=== PATIENT | male | born 1955 | race African-American/Black ===

== ENCOUNTER 2016-09-27 16:33 | Emergency (ER) | payer SELFPAY ==
--- NOTE | 2016-09-27 17:01 | ER Document Report ---
ED Medical Screen (RME) - General Stated Complaint: CHEST PAIN Notes: 61 yo c/o elevated blood pressure. no chest pain, no shortness of breath. no headache or dizziness + swelling to left hand. denies any muscle weakness off HTN meds x 1 month. Took room mate's blood pressure medication last night. pt feels like he has cotton in his throat and right side of mouth is swollen. no tongue swelling. no difficulty talking or swallowing. no focal neuro deficits noted at triage Physical Exam - Vital signs Vitals: Temp Pulse Resp BP Pulse Ox 99.1 F 93 18 177/108 H 95 09/27/16 16:40 09/27/16 16:40 09/27/16 16:40 09/27/16 16:40 09/27/16 16:40 Course - Vital Signs Vital signs: Temp Pulse Resp BP Pulse Ox 99.1 F 93 18 177/108 H 95 09/27/16 16:40 09/27/16 16:40 09/27/16 16:40 09/27/16 16:40 09/27/16 16:40
[2016-09-27 17:19] LABS: ABSOLUTE LYMPHOCYTES (AUTO) 4.1 10^3/uL (0.5-4.7); ABSOLUTE MONOCYTES (AUTO) 0.6 10^3/uL (0.1-1.4); ABSOLUTE NEUT (AUTO) 4.3 10^3/uL (1.7-8.2); BASOPHILS % (AUTO) 0.5 % (0-2); EOSINOPHILS % (AUTO) 0.4 % (0-6); HEMATOCRIT 39.2 % (37.9-51.0); HEMOGLOBIN 13.2 g/dL (13.5-17.0); HGB HCT DIFFERENCE 0.4; LYMPHOCYTES % (AUTO) 44.7 % (13-45); MEAN CORPUSCULAR HEMOGLOBIN 31.2 pg (27.0-33.4); MEAN CORPUSCULAR HGB CONC 33.7 g/dL (32.0-36.0); MEAN CORPUSCULAR VOLUME 92 fl (80-97); MONOCYTES % (AUTO) 6.8 % (3-13); RED BLOOD COUNT 4.24 10^6/uL (4.35-5.55); SEGMENTED NEUTROPHILS % (AUTO) 47.6 % (42-78); WHITE BLOOD COUNT 9.1 10^3/uL (4.0-10.5)
[2016-09-27 17:28] LABS: APPEARANCE,URINE SLIGHTLY-CLOUDY; BILIRUBIN,URINE NEGATIVE (NEGATIVE); GLUCOSE, URINE NEGATIVE (NEGATIVE); KETONES,URINE NEGATIVE (NEGATIVE); LEUKOCYTE ESTERASE,URINE LARGE (NEGATIVE); NITRITE,URINE POSITIVE (NEGATIVE); PROTEIN,URINE 30 mg/dL (NEGATIVE)
[2016-09-27 17:36] LABS: ALANINE AMINOTRANSFERASE 31 U/L (21-72); ALBUMIN 4.5 g/dL (3.5-5.0); ALKALINE PHOSPHATASE 121 U/L (38-126); ANION GAP 13 (5-19); ASPARTATE AMINO TRANSFERASE 27 U/L (17-59); BILIRUBIN,DIRECT 0.2 mg/dL (0.0-0.4); BILIRUBIN,TOTAL 0.5 mg/dL (0.2-1.3); BLOOD UREA NITROGEN 14 mg/dL (7-20); CALCIUM 9.9 mg/dL (8.4-10.2); CARBON DIOXIDE 27 mmol/L (22-30); CHLORIDE 103 mmol/L (98-107); CREATINE KINASE 272 U/L (55-170); CREATININE RESULT 0.84 mg/dL (0.52-1.25); GLUCOSE 101 mg/dL (75-110); POTASSIUM 3.9 mmol/L (3.6-5.0); SODIUM 143.1 mmol/L (137-145); TOTAL PROTEIN 7.9 g/dL (6.3-8.2)
[2016-09-27 17:46] LABS: CREATINE KINASE MB 1.56 ng/mL (<4.55)
[2016-09-27 17:47] LABS: TROPONIN I < 0.012 ng/mL
--- NOTE | 2016-09-27 21:50 | ER Document Report ---
ED General - General Mode of Arrival: Ambulatory Information source: Patient TRAVEL OUTSIDE OF THE [place] IN LAST 30 DAYS: No - HPI Patient complains to provider of: Lip and Throat Swelling Onset: This morning Onset/Duration: Gradual, Persistent Associated symptoms: None <MYLA GALLARDO - Last Filed: 09/27/16 22:05> <RANJEET BEJARANO - Last Filed: 09/27/16 23:56> - General Chief Complaint: High Blood Pressure Stated Complaint: CHEST PAIN Notes: Patient is a 61-year-old male presenting to the emergency department chief complaint high blood pressure. Patient has been out of his blood pressure medication for one month, and states that he went to the pharmacy today to get it filled. Patient states he wasn't feeling well, and asked the pharmacist to check his blood pressure while there. Pharmacist told the patient that he should immediately report to the emergency department due to concern for possible stroke. Shortly after leaving the pharmacy, he noticed that the corner of his lip began to swell. Patient states that he also began experiencing "cotton in his throat". Patient denies any difficulty breathing. Since coming to the emergency department, his lip has become grossly swollen, but he states that there is absolutely no change to the way his throat feels. Patient normally takes hydrochlorothiazide 25 mg daily, and he took one of his friends HCTZ 50 mg last night. When patient was informed that there was a lot of bacteria found in his urine, and patient denies any pain or burning with urination. Patient also states that he was not told that he needed to pull his foreskin back and clean the tip of his penis before urinating in the Cup. (MYLA GALLARDO) - Related Data Allergies/Adverse Reactions: No Known Allergies Allergy (Verified 09/27/16 16:55) Past Medical History - General Information source: Patient, [facility] Records - Social History Smoking Status: Current Every Day Smoker Chew tobacco use (# tins/day): No Frequency of alcohol use: None Drug Abuse: None Family History: Reviewed & Not Pertinent Patient has suicidal ideation: No Patient has homicidal ideation: No - Past Medical History Cardiac Medical History: Reports: Hx Hypertension Renal/ Medical History: Denies: Hx Peritoneal Dialysis Musculoskeltal Medical History: Reports Hx Arthritis <MYLA GALLARDO - Last Filed: 09/27/16 22:05> Review of Systems - Review of Systems Constitutional: See HPI, Other - Hypertension EENT: See HPI, Throat swelling, Mouth swelling Cardiovascular: No symptoms reported Respiratory: No symptoms reported Gastrointestinal: No symptoms reported Genitourinary: No symptoms reported. denies: Burning, Dysuria Male Genitourinary: No symptoms reported Musculoskeletal: No symptoms reported Skin: No symptoms reported Hematologic/Lymphatic: No symptoms reported Neurological/Psychological: No symptoms reported -: Yes All other systems reviewed and negative <MYLA GALLARDO - Last Filed: 09/27/16 22:05> Physical Exam - General General appearance: Alert - HEENT Head: Normocephalic, Atraumatic Eyes: Normal Pupils: PERRL Mouth/Lips: Other - Upper lip grossly edematous Pharynx: Other - Edema over the back of the throat, no redness, no difficulty breathing. No: Erythema - Respiratory Respiratory status: No respiratory distress Chest status: Nontender Breath sounds: Normal Chest palpation: Normal - Cardiovascular Rhythm: Regular Heart sounds: Normal auscultation Murmur: No - Abdominal Inspection: Normal Distension: No distension Bowel sounds: Normal Tenderness: Nontender Organomegaly: No organomegaly - Back Back: Normal, Nontender - Extremities General upper extremity: Normal inspection, Nontender General lower extremity: Normal inspection, Nontender - Neurological Neuro grossly intact: Yes Cognition: Normal Tamy Coma Scale Eye Opening: Spontaneous Tamy Coma Scale Verbal: Oriented [place] Coma Scale Motor: Obeys Commands [place] Coma Scale Total: 15 Speech: Other - Throat swelling is affecting his speech - Psychological Associated symptoms: Normal affect, Normal mood - Skin Skin Temperature: Warm Skin Moisture: Dry Skin Color: Normal <MYLA GALLARDO - Last Filed: 09/27/16 22:05> Course - Laboratory Result Diagrams: 09/27/16 17:05 09/27/16 17:05 <MYLA GALLARDO - Last Filed: 09/27/16 22:05> - Laboratory Result Diagrams: 09/27/16 17:05 09/27/16 17:05 - EKG Interpretation by Vt EKG shows normal: Sinus rhythm, Intervals, QRS Complexes. abnormal: [place], ST-T Waves - Diffuse nonspecific T-wave abnormalities Rate: Normal - 87 Rhythm: NSR [place]/QRS: Left axis deviation P Waves: LAE When compared to previous EKG there are: Previous EKG unavailable - Transfer of Care Care transferred to following provider: Dr. Becerra <RANJEET BEJARANO - Last Filed: 09/27/16 23:56> - Re-evaluation Re-evalutation: 09/27/16 23:48 At this time the patient is sound asleep and snoring loudly. His room air pulse ox is 95%. I do not believe the story is related to his angioedema as he is 350 pounds with a very short and very large neck. (RANJEET BEJARANO) - Vital Signs Vital signs: Temp Pulse Resp BP Pulse Ox 99.1 F 85 16 169/98 H 97 09/27/16 16:40 09/27/16 19:22 09/27/16 23:05 09/27/16 23:05 09/27/16 23:05 - Laboratory Laboratory results interpreted by me: 09/27/16 09/27/16 09/27/16 17:05 17:05 17:05 RBC 4.24 L Hgb 13.2 L RDW 15.0 H Creatine Kinase 272 H Urine Protein 30 H Urine Blood SMALL H Urine Nitrite POSITIVE H Urine Urobilinogen 4.0 H Ur Leukocyte Esterase LARGE H 09/27/16 22:26 RBC Hgb RDW Creatine Kinase Urine Protein 30 H Urine Blood SMALL H Urine Nitrite Urine Urobilinogen 4.0 H Ur Leukocyte Esterase MODERATE H - Transfer of Care Notes: 09/27/16 23:49 The plan at this time is to allow the patient to sleep and remained monitored through the night. He should be safe for discharge home tomorrow morning if he has no additional swelling problems. (RANJEET BEJARANO) Discharge <MYLA GALLARDO - Last Filed: 09/27/16 22:05> <RANJEET BEJARANO - Last Filed: 09/27/16 23:56> - Discharge Clinical Impression: Allergy to angiotensin-converting enzyme (JACOB) inhibitors Angioedema Qualifiers: Encounter type: initial encounter Qualified Code(s): T78.3XXA - Angioneurotic edema, initial encounter Hypertension Qualifiers: Hypertension type: essential hypertension Qualified Code(s): I10 - Essential ( primary) hypertension Condition: Stable Scribe Documentation - Scribe Written by Scribe:: Myla Gallardo [id number] acting as scribe for :: Greta <MYLA GALLARDO - Last Filed: 09/27/16 22:05>
[2016-09-27] MEDS ORDERED: FAMOTIDINE INJ/PF 20 MG/2 ML SDV IV ONE (22:05)
[2016-09-27] MEDS ORDERED: DIPHENHYDRAMINE HCL 50 MG/ML VIAL IV ONE (22:05)
[2016-09-27] MEDS ORDERED: METHYLPREDNISOLONE INJ 125 MG/2 ML SDV IV ONE (22:08)
[2016-09-27 22:44] LABS: APPEARANCE,URINE CLOUDY; BILIRUBIN,URINE NEGATIVE (NEGATIVE); GLUCOSE, URINE NEGATIVE (NEGATIVE); KETONES,URINE NEGATIVE (NEGATIVE); LEUKOCYTE ESTERASE,URINE MODERATE (NEGATIVE); NITRITE,URINE NEGATIVE (NEGATIVE); PROTEIN,URINE 30 mg/dL (NEGATIVE); URINE SPECIFIC GRAVITY 1.014
[2016-09-27] MEDS ORDERED: CEFTRIAXONE 1 GM/D5W RTU 50 ML IV ONE (22:54)
--- NOTE | 2016-09-28 02:32 | ER Document Report ---
Doctor's Note Notes: 09/28/16 02:31 Asked by nurse to assess patient at the bedside. Was in the middle of an emergent patient with tachycardia shortness of breath. Went back to the room to see the patient and he had left his gown illness belongings were gone. He left with his IV in place. He is an elopement with IV in place the police are being notified to track him down to remove the IV.
--- NOTE | 2016-09-28 08:14 | EKG REPORT ---
SEVERITY:- ABNORMAL ECG - SINUS RHYTHM PROBABLE LEFT ATRIAL ABNORMALITY BORDERLINE LEFT AXIS DEVIATION NONSPECIFIC T ABNORMALITIES, DIFFUSE LEADS : Confirmed by: Sylvester Bang 28-Sep-2016 08:14:21
[2016-09-28 08:20] VITALS: BP 155/106
== END 2016-09-28 02:30 | disposition left against medical advice (07) ==
LOC: ER 16:33
DX: T78.3XXA Angioneurotic edema, initial encounter (principal); I10 Essential (primary) hypertension; Z91.14 Patient's other noncompliance with medication regimen; R94.31 Abnormal electrocardiogram [ECG] [EKG]; F17.200 Nicotine dependence, unspecified, uncomplicated; Z88.8 Allergy status to other drugs, medicaments and biological substances
CPT/HCPCS: 93005; 99281; 96375; 96365; 36415; 87086; 82553; 82550; 85025; 87088; 80053; 81001; 84484; 87186; 71020; 93010; J1200; J2930; S0028; J0696

== ENCOUNTER 2019-07-21 13:32 | Emergency (ER) | payer BC ==
[2019-07-21] MEDS ORDERED: KETOROLAC TROMETHAMINE 60 MG/2 ML SDV IM ONE (14:44)
--- NOTE | 2019-07-21 15:44 | RADIOLOGY REPORT (SQ) ---
EXAM DESCRIPTION: KNEE RIGHT 4 VIEWS COMPLETED DATE/TIME: 07/21/2019 3:19 pm REASON FOR STUDY: pain, swelling COMPARISON: None. NUMBER OF VIEWS: Four views. TECHNIQUE: AP, lateral, and both oblique radiographic images acquired of the right knee. LIMITATIONS: None. FINDINGS: MINERALIZATION: Osteopenia. BONES: No acute fracture or dislocation. JOINT: Joint effusion. 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 The quadriceps and patellar tendon silhouettes are intact SOFT TISSUES: No soft tissue swelling or radiopaque foreign body. OTHER: No other finding. IMPRESSION: Joint effusion without an associated acute osseous abnormality. The effusion could be r eactive to the moderate to severe tricompartmental osteoarthrosis. TECHNICAL DOCUMENTATION: JOB ID: [id number] [employer]- All Rights Reserved Reading location - IP/workstation name: [email or web address]
[2019-07-21] MEDS ORDERED: NORMAL SALINE 1000 ML 1,000 ML IV ONE (15:57)
[2019-07-21 16:18] LABS: ABSOLUTE BASOPHILS # (AUTO) 0.1 10^3/uL (0.0-0.2); ABSOLUTE LYMPHOCYTES (AUTO) 3.4 10^3/uL (0.5-4.7); ABSOLUTE MONOCYTES (AUTO) 2.2 10^3/uL (0.1-1.4); ABSOLUTE NEUT (AUTO) 9.2 10^3/uL (1.7-8.2); BASOPHILS % (AUTO) 0.6 % (0-2); HEMATOCRIT 40.8 % (37.9-51.0); HEMOGLOBIN 13.5 g/dL (13.5-17.0); LYMPHOCYTES % (AUTO) 22.8 % (13-45); MEAN CORPUSCULAR HEMOGLOBIN 31.6 pg (27.0-33.4); MEAN CORPUSCULAR HGB CONC 33.2 g/dL (32.0-36.0); MEAN CORPUSCULAR VOLUME 95 fl (80-97); MONOCYTES % (AUTO) 14.9 % (3-13); PLATELET COUNT 237 10^3/uL (150-450); RED BLOOD COUNT 4.29 10^6/uL (4.35-5.55); RED CELL DISTRIBUTION WIDTH 14.9 % (11.5-14.0); SEGMENTED NEUTROPHILS % (AUTO) 61.7 % (42-78); TOTAL CELLS COUNTED % (AUTO) 100 %; WHITE BLOOD COUNT 14.9 10^3/uL (4.0-10.5)
[2019-07-21 16:21] LABS: APPEARANCE,URINE SLIGHTLY-CLOUDY; BILIRUBIN,URINE SMALL (NEGATIVE); COLOR,URINE AMBER; GLUCOSE, URINE NEGATIVE (NEGATIVE); KETONES,URINE NEGATIVE (NEGATIVE); LEUKOCYTE ESTERASE,URINE MODERATE (NEGATIVE); NITRITE,URINE NEGATIVE (NEGATIVE); PROTEIN,URINE >=500 mg/dL (NEGATIVE)
--- NOTE | 2019-07-21 16:31 | ER Document Report ---
ED General - General TRAVEL OUTSIDE OF THE [place] IN LAST 30 DAYS: No - Related Data Home Medications: Hydrochlorothiazide <CAMRON NAM E - Last Filed: 07/21/19 16:25> <CORAL VELOZ - Last Filed: 07/21/19 18:18> - General Chief Complaint: Knee Pain Stated Complaint: RIGHT KNEE PAIN Time Seen by Provider: 07/21/19 14:35 Primary Care Provider: CRESCENCIO PIPER MD [Primary Care Provider] - Follow up as needed - HPI Notes: Mr. Basil Galvez is a 64-year-old male with a longstanding history of severe polyarthritis. Possibly rheumatoid but patient is a rather poor historian. He is primary care physician has apparently tried a number of medications in the past for this with little success and is recently turned him over to a pain management clinic. They have been treating him with tramadol and he says this is not working well. He does not recall ever seeing a handhole machine operator for consultation. He is unsure whether he is been diagnosed with gout in the past but says he does not clearly recall this. He comes in today primarily for increased pain swelling of his right knee with inability to bear weight. He was transported here via EMS. Patient says he has a history of hypertension. He denies any known history of renal or hepatic disease. (CAMRON NAM) - Related Data Allergies/Adverse Reactions: tramadol Adverse Reaction (Verified 07/21/19 14:00) Past Medical History - General Information source: Patient - Social History Smoking Status: Unknown if Ever Smoked Family History: Reviewed & Not Pertinent Patient has suicidal ideation: No Patient has homicidal ideation: No - Past Medical History Cardiac Medical History: Reports: Hx Hypertension Renal/ Medical History: Denies: Hx Peritoneal Dialysis Musculoskeletal Medical History: Reports Hx Arthritis <CAMRON NAM E - Last Filed: 07/21/19 16:25> Review of Systems <CAMRON NAM - Last Filed: 07/21/19 16:25> - Review of Systems Notes: Constitutional: Negative for fever. HENT: Negative for sore throat. Eyes: Negative for visual changes. Cardiovascular: Negative for chest pain. Respiratory: Negative for shortness of breath. Gastrointestinal: Negative for abdominal pain, vomiting or diarrhea. Genitourinary: Negative for dysuria. Musculoskeletal: As per HPI. Skin: Negative for rash. Neurological: Negative for headaches, weakness or numbness. 10 point ROS negative except as marked above and in HPI. (CAMRON NAM) Physical Exam <CAMRON NAM - Last Filed: 07/21/19 16:25> - Vital signs Vitals: Temp Pulse Resp BP Pulse Ox 100.0 F 105 H 20 152/96 H 95 07/21/19 13:38 07/21/19 13:38 07/21/19 13:38 07/21/19 13:38 07/21/19 13:38 - Notes Notes: GENERAL: Well-developed well-nourished appearing in moderate discomfort. He does not appear toxic. SKIN: Good turgor no rashes. HEAD: Normocephalic atraumatic. EYES: PERRLA. EOMI. Conjunctivae and sclerae clear. EARS: CANALS AND TMS CLEAR. NOSE: CLEAR. MOUTH: Moist mucosa. Good dentition. No stridor or edema. No drooling. NECK: Supple. No masses or thyromegaly. No adenopathy. Carotids 2+ without bruits. No JVD. BACK: Symmetrical without tenderness. CHEST: Respirations unlabored. Breath sounds clear and symmetrical. HEART: Regular rhythm. No murmur gallop or rub. ABDOMEN: Soft nontender without masses, organomegaly or rebound. Bowel sounds normally active. No bruits. GENITALIA: Deferred. EXTREMITIES: Patient has a moderate size right knee effusion with some associated warmth and tenderness. No calf tenderness. Cap refill less than 1.5 seconds. Dorsalis pedis and posterior tibial pulses 3+ and symmetrical. NEUROLOGICAL: GCS 15. Alert and oriented x3. Normal gait. Speech is mildly slurred. Cranial nerves II through XII intact. Sensorimotor and cerebellar normal. Normal tone. PSYCHIATRIC: Appropriate affect. (CAMRON NAM) Course - Laboratory Result Diagrams: 07/21/19 15:43 07/21/19 15:43 <CAMRON NAM - Last Filed: 07/21/19 16:25> - Laboratory Result Diagrams: 07/21/19 15:43 07/21/19 15:43 - Diagnostic Test Radiology reviewed: Image reviewed, Reports reviewed <CORAL VELOZ E - Last Filed: 07/21/19 18:18> - Re-evaluation Re-evalutation: 07/21/19 16:30 Plan is to obtain plain films of the right knee and lab studies to include CBC, comprehensive metabolic profile, serum urate, ESR and CRP. Patient has been given IM Toradol. Further disposition of this patient is turned over to Dr. Veloz at 1630 hrs. (CAMRON NAM) 07/21/19 18:10 Laboratory 07/21/19 07/21/19 07/21/19 15:43 15:43 15:43 WBC 14.9 H RBC 4.29 L Hgb 13.5 Hct 40.8 MCV 95 MCH 31.6 MCHC 33.2 RDW 14.9 H Plt Count 237 Lymph % (Auto) 22.8 [place]ade % (Auto) 14.9 H Eos % (Auto) 0.0 Baso % (Auto) 0.6 Absolute Neuts (auto) 9.2 H Absolute Lymphs (auto) 3.4 Absolute Monos (auto) 2.2 H Absolute Eos (auto) 0.0 Absolute Basos (auto) 0.1 Seg Neutrophils % 61.7 ESR 97 H Sodium 139.7 Potassium 4.3 Chloride 100 Carbon Dioxide 27 Anion Gap 13 BUN 20 Creatinine 1.13 Est GFR ( Amer) > 60 Est GFR (MDRD) Non-Af > 60 Glucose 129 H Uric Acid 10.9 H Calcium 9.9 Total Bilirubin 2.6 H Direct Bilirubin 1.2 H Neonat Total Bilirubin Not Reportable Neonat Direct Bilirubin Not Reportable Neonat Indirect Bili Not Reportable AST 47 ALT 33 Alkaline Phosphatase 145 H C-Reactive Protein 86.9 H Total Protein 9.0 H Albumin 4.7 Urine Color OSIRIS Urine Appearance SLIGHTLY-CLOUDY Urine pH 5.0 Ur Specific [place] 1.020 Urine Protein >=500 H Urine Glucose (UA) NEGATIVE Urine Ketones NEGATIVE Urine Blood MODERATE H Urine Nitrite NEGATIVE Urine Bilirubin SMALL H Urine Urobilinogen 4.0 H Ur Leukocyte Esterase MODERATE H Urine WBC (Auto) 44 Urine RBC (Auto) 7 U Hyaline Cast (Auto) 2 Urine Bacteria (Auto) 3+ Squamous Epi Cells Auto 1 Urine Mucus (Auto) FEW Urine Ascorbic Acid NEGATIVE Knee X-Ray 07/21/19 14:44 IMPRESSION: Joint effusion without an associated acute osseous abnormality. The effusion could be reactive to the moderate to severe tricompartmental osteoarthrosis. 07/21/19 18:13 64-year-old male with chronic pain, arthritis presents with complaint of right knee pain. Patient has been undergoing pain management for chronic knee pain. Upon my exam patient had already been medicated and reports improvement of his knee pain. Urinalysis consistent with urinary tract infection. Patient has full range of motion of his knee on my exam without associated warmth or erythema, making septic joint less likely. He does have a mild effusion and an Kristofer wrap was applied. Patient requesting discharge home. 07/21/19 18:17 Patient was evaluated and treated as appropriate for the patient's presenting symptoms and complaint, with consideration of any critical or life threatening conditions that may be associated with their obtained history and exam as noted above. All results were discussed with patient and... Patient provided the opportunity to ask questions, and express concerns. Patient was educated on treatments based on their presumed diagnosis as noted above. At this time we will discharge the patient with return precautions and follow-up recommendations. Verbal discharge instructions given a the bedside. Medication warnings reviewed. Patient is in agreement with this plan and has verbalized understanding of return precautions. After careful consideration I feel that that patient can be safely discharged from the emergency department, they were advised to followup with a primary care physician in 2-3 days. Dictation on this chart was performed using voice recognition software and may result in unintended grammatical, spelling, syntax or errors. (CORAL VELOZ) - Vital Signs Vital signs: Temp Pulse Resp BP Pulse Ox 100.0 F 105 H 20 152/96 H 95 07/21/19 13:38 07/21/19 13:38 07/21/19 13:38 07/21/19 13:38 07/21/19 13:38 - Laboratory Laboratory results interpreted by me: 07/21/19 07/21/19 07/21/19 15:43 15:43 15:43 WBC 14.9 H RBC 4.29 L RDW 14.9 H [place] % (Auto) 14.9 H Absolute Neuts (auto) 9.2 H Absolute Monos (auto) 2.2 H ESR 97 H Glucose 129 H Uric Acid 10.9 H Total Bilirubin 2.6 H Direct Bilirubin 1.2 H Alkaline Phosphatase 145 H C-Reactive Protein 86.9 H Total Protein 9.0 H Urine Protein >=500 H Urine Blood MODERATE H Urine Bilirubin SMALL H Urine Urobilinogen 4.0 H Ur Leukocyte Esterase MODERATE H Discharge <CAMRON NAM E - Last Filed: 07/21/19 16:25> <CORAL VELOZ E - Last Filed: 07/21/19 18:18> - Discharge Clinical Impression: Chronic knee pain Qualifiers: Laterality: right Qualified Code(s): M25.561 - Pain in right knee; G89.29 - Other chronic pain UTI (urinary tract infection) Qualifiers: Urinary tract infection type: site unspecified Hematuria presence: without hematuria Qualified Code(s): N39.0 - Urinary tract infection, site not specified Osteoarthritis Qualifiers: Osteoarthritis location: multiple joints Osteoarthritis type: unspecified Qualified Code(s): M15.9 - Polyosteoarthritis, unspecified Condition: Good Disposition: HOME, SELF-CARE Instructions: Ice & Elevation ([facility]), Osteoarthritis ([facility]), Gout ([facility]), Urinary Tract Infection ([facility]) Additional Instructions: Your urine shows findings consistent with a urinary tract infection. Please take all the antibiotics as directed even if your symptoms have improved. Please follow-up with your primary care physician as needed. Return to emergency room if you develop fever >101F, persistent vomiting, become lethargic, have severe pain in your sides, or any other symptoms that are concerning to you. Follow up with your [id number] hours for further care or return to the ED IMMEDIATELY if symptoms worsen or you have any concerns. If you cannot afford to follow up with your primary care physician a list of low cost clinics have been provided at the end of your discharge papers as well. Most prescribed medications have multiple side effects. The safest thing to do is when filling your prescription speak to your pharmacist regarding possible interactions with your normal home medications and over the counter medications such as Ibuprofen, Tylenol, Benadryl. If you experience any symptoms that cause you discomfort or concern you should discontinue the medication immediately and return to the emergency room or call your primary care physician. Prescriptions: Prednisone [Deltasone 20 mg Tablet] 3 tab PO DAILY 5 Days #15 tablet Cephalexin Monohydrate [Keflex 500 mg Capsule] 500 mg PO BID 10 Days #20 capsule Meloxicam [Mobic] 7.5 mg PO DAILY #10 tablet Forms: Elevated Blood Pressure Referrals: FELIZ,CRESCENCIO, MD [Primary Care Provider] - Follow up as needed
[2019-07-21 16:48] LABS: ALBUMIN 4.7 g/dL (3.5-5.0); ALKALINE PHOSPHATASE 145 U/L (38-126); ANION GAP 13 (5-19); ASPARTATE AMINO TRANSFERASE 47 U/L (17-59); BILIRUBIN,DIRECT 1.2 mg/dL (0.0-0.4); BILIRUBIN,TOTAL 2.6 mg/dL (0.2-1.3); BLOOD UREA NITROGEN 20 mg/dL (7-20); C-REACTIVE PROTEIN 86.9 mg/L (<10.0); CALCIUM 9.9 mg/dL (8.4-10.2); CARBON DIOXIDE 27 mmol/L (22-30); CHLORIDE 100 mmol/L (98-107); GLUCOSE 129 mg/dL (75-110); POTASSIUM 4.3 mmol/L (3.6-5.0); URIC ACID 10.9 mg/dL (3.5-8.5)
[2019-07-21 16:58] LABS: ERYTHROCYTE SEDIMENTATION RATE 97 mm/hr (0-20)
[2019-07-21] MEDS ORDERED: FENTANYL CITRATE INJ/PF 100 MCG/2 ML AMPUL IV ONE (17:06)
[2019-07-21 19:01] VITALS: BP 121/77
== END 2019-07-21 19:00 | disposition home or self-care (01) ==
LOC: ER 13:32
DX: G89.29 Other chronic pain (principal); M25.561 Pain in right knee; N39.0 Urinary tract infection, site not specified; M15.9 Polyosteoarthritis, unspecified; M25.461 Effusion, right knee; I10 Essential (primary) hypertension
CPT/HCPCS: 99284; 36415; 87086; 84550; 85025; 85652; 86140; 87088; 80053; 81001; 87186; 73564; J1885; J3010; J7030

== ENCOUNTER 2019-07-25 16:23 | Emergency (ER) | payer BC ==
[2019-07-25] MEDS ORDERED: NORMAL SALINE 1000 ML 1,000 ML IV ONE (22:10)
--- NOTE | 2019-07-25 22:12 | ER Document Report ---
ED General - General Chief Complaint: Knee Pain Stated Complaint: RIGHT KNEE,LEFT FOOT PAIN Time Seen by Provider: 07/25/19 21:51 Primary Care Provider: CRESCENCIO PIPER MD [Primary Care Provider] - Follow up as needed Notes: Patient is a 64-year-old male that comes emergency department for chief complaint of inability to walk. He was seen almost 4 days ago for pain in his right knee and left ankle, he states that he was diagnosed with gout and osteoarthritis, prescribed medications, he states that it took him 1.5 hours to get back into his house and then when he got into his room he has been sitting on the floor for 3 days. He states that he was using the bathroom on the floor. He states that he tried to take the legs off his bed and get into the bed but he could not. He states he tried to use crutches but cannot ambulate. Patient states she is depressed about losing his independence, he states normally he is ambulatory and works a full-time job. He denies SI or HI however. He denies any pain unless he tries to walk, he denies vomiting, fever, and he is still urinating but his urine is reportedly dark. He states he has a history of hypertension and arthritis but he denies medical history otherwise. TRAVEL OUTSIDE OF THE [place] IN LAST 30 DAYS: No - Related Data Allergies/Adverse Reactions: tramadol Adverse Reaction (Verified 07/21/19 14:00) Past Medical History - General Information source: Patient - Social History Smoking Status: Never Smoker Frequency of alcohol use: None Drug Abuse: None Lives with: Family Family History: Reviewed & Not Pertinent Patient has suicidal ideation: No Patient has homicidal ideation: No - Past Medical History Cardiac Medical History: Reports: Hx Hypertension Renal/ Medical History: Denies: Hx Peritoneal Dialysis Musculoskeletal Medical History: Reports Hx Arthritis - Immunizations Immunizations up to date: Yes Hx Diphtheria, Pertussis, Tetanus Vaccination: Yes Review of Systems - Review of Systems Constitutional: See HPI EENT: No symptoms reported Cardiovascular: No symptoms reported Respiratory: No symptoms reported Gastrointestinal: No symptoms reported Genitourinary: No symptoms reported Male Genitourinary: No symptoms reported Musculoskeletal: See HPI Skin: No symptoms reported Hematologic/Lymphatic: No symptoms reported Neurological/Psychological: No symptoms reported Physical Exam - Vital signs Vitals: Temp Pulse Resp BP Pulse Ox 99.3 F 96 16 174/92 H 94 07/25/19 17:06 07/25/19 17:06 07/25/19 17:06 07/25/19 17:06 07/25/19 17:06 - Notes Notes: GENERAL: Alert, interacts well. No acute distress. HEAD: Normocephalic, atraumatic. EYES: Pupils equal, round, and reactive to light. Extraocular movements intact. ENT: Oral mucosa moist, tongue midline. Oropharynx unremarkable. Airway patent. LUNGS: Clear to auscultation bilaterally, no wheezes, rales, or rhonchi. No respiratory distress. HEART: Regular rate and rhythm. No murmur ABDOMEN: Soft, non-tender. Non-distended. Bowel sounds present in all 4 q uadrants. GENITOURINARY: Deferred EXTREMITIES: There is mild warmth and tenderness with palpation over both knees but the right knee has more soft tissue swelling. Range of motion intact, no erythema noted, normal lower extremities otherwise, normal distal neurovascular exam. BACK: no cervical, thoracic, lumbar midline tenderness. No saddle anesthesia, normal distal neurovascular exam. Moves all extremities in full range of motion. NEUROLOGICAL: Alert and oriented x3. Normal speech. Cranial nerves II through XII grossly intact. PSYCH: Normal affect, normal mood. SKIN: Warm, dry, normal turgor. No rashes or lesions noted. Course - Re-evaluation Re-evalutation: Patient has pain over the right knee and pain over the left ankle. He has already had these imaged. He denies reinjury. He states that he was seen the last 2 times and is still not able to walk at home and just sits on his floor in his room. CBC shows some leukocytosis, nonspecific, joints are not erythematous, he can bend all the joints without difficulty, these do not appear infected. No fever. Chemistry shows elevated BUN, borderline AST, CK 800, uri nalysis shows elevated specific gravity. Patient was given 2 bags of IV fluids. He is able to urinate without difficulty and urine is not tea colored. Patient is able to drink fluids without any difficulty. I am having a lot of difficulty getting patient to walk. He is very large in size, we are having trouble getting him off the bed, he will not support any weight on his leg. Patient is stating that he would like to ice these, if he received medication he will try. He was given Solu-Medrol and pain medication. Patient still unable to walk, now we will try ankle stirrup on the left ankle and knee immobilizer on the right knee after discussion with patient. Patient does state that for years he has been told by orthopedic surgery that he will need knee replacements but he has been putting this off. He also was told that he could get surgery on his left ankle but he put this off as well. He has received injections in his knees with some relief. He states that he basically has "handicapped" his own house with walkers, canes, crutches everywhere along with devices to hold onto in many locations. This is not a new problem. He states he is hoping that he can get to where he can ambulate today and go home, he states he does not want to be admitted and he does not want to be placed anywhere. Patient still not able to get up with assistance with the ankle stirrup and the knee immobilizer. Labs repeated and CK is downtrending nicely. No significant change in his labs from prior. Discussed options, caseworker protective services consult was placed to see if we can get patient more assistance at home. - Vital Signs Vital signs: Temp Pulse Resp BP Pulse Ox 99.3 F 96 16 174/92 H 94 07/25/19 17:06 07/25/19 17:06 07/25/19 17:06 07/25/19 17:06 07/25/19 17:06 - Laboratory Result Diagrams: 07/25/19 22:43 07/26/19 05:58 Laboratory results interpreted by me: 07/25/19 07/25/19 07/25/19 22:32 22:43 22:43 WBC 14.2 H RBC 3.80 L Hgb 11.8 L Hct 35.9 L RDW 14.8 H Absolute Neuts (auto) 8.4 H Absolute Monos (auto) 1.8 H BUN 29 H Glucose 142 H Total Bilirubin 1.6 H Direct Bilirubin 0.9 H AST 78 H Alkaline Phosphatase 144 H Creatine Kinase 839 H Urine Protein 30 H Urine Blood SMALL H Urine Urobilinogen 4.0 H 07/26/19 05:58 WBC RBC Hgb Hct RDW Absolute Neuts (auto) Absolute Monos (auto) BUN 29 H Glucose 207 H Total Bilirubin 2.3 H Direct Bilirubin 1.4 H AST 81 H Alkaline Phosphatase 156 H Creatine Kinase 597 H Urine Protein Urine Blood Urine Urobilinogen Procedures - Immobilization left ankle Pre-Proc Neuro Vasc Exam: Normal Immobilizer type: Kristofer wrap, Ankle stirrup Post-Proc Neuro Vasc Exam: Normal Alignment checked and good: Yes right knee Pre-Proc Neuro Vasc Exam: Normal Immobilizer type: Knee immobilizer Performed by: PCT Post-Proc Neuro Vasc Exam: Normal Alignment checked and good: Yes Discharge - Discharge Clinical Impression: Swelling of right knee joint, Chronic pain of left ankle, Impaired ambulation Condition: Stable Disposition: HOME, SELF-CARE Referrals: CRESCENCIO PIPER MD [Primary Care Provider] - Follow up in 3-5 days
[2019-07-25 22:46] LABS: APPEARANCE,URINE CLEAR; BILIRUBIN,URINE NEGATIVE (NEGATIVE); COLOR,URINE AMBER; GLUCOSE, URINE NEGATIVE (NEGATIVE); KETONES,URINE NEGATIVE (NEGATIVE); LEUKOCYTE ESTERASE,URINE NEGATIVE (NEGATIVE); NITRITE,URINE NEGATIVE (NEGATIVE); PROTEIN,URINE 30 mg/dL (NEGATIVE)
[2019-07-25 22:54] LABS: ABSOLUTE BASOPHILS # (AUTO) 0.1 10^3/uL (0.0-0.2); ABSOLUTE LYMPHOCYTES (AUTO) 3.8 10^3/uL (0.5-4.7); ABSOLUTE MONOCYTES (AUTO) 1.8 10^3/uL (0.1-1.4); ABSOLUTE NEUT (AUTO) 8.4 10^3/uL (1.7-8.2); HEMATOCRIT 35.9 % (37.9-51.0); HEMOGLOBIN 11.8 g/dL (13.5-17.0); MEAN CORPUSCULAR HEMOGLOBIN 31.1 pg (27.0-33.4); MEAN CORPUSCULAR VOLUME 94 fl (80-97); MONOCYTES % (AUTO) 12.9 % (3-13); PLATELET COUNT 289 10^3/uL (150-450); RED CELL DISTRIBUTION WIDTH 14.8 % (11.5-14.0); SEGMENTED NEUTROPHILS % (AUTO) 59.1 % (42-78); TOTAL CELLS COUNTED % (AUTO) 100 %; WHITE BLOOD COUNT 14.2 10^3/uL (4.0-10.5)
[2019-07-25 23:13] LABS: ALBUMIN 3.8 g/dL (3.5-5.0); ALKALINE PHOSPHATASE 144 U/L (38-126); ANION GAP 11 (5-19); ASPARTATE AMINO TRANSFERASE 78 U/L (17-59); BILIRUBIN,DIRECT 0.9 mg/dL (0.0-0.4); BILIRUBIN,TOTAL 1.6 mg/dL (0.2-1.3); BLOOD UREA NITROGEN 29 mg/dL (7-20); CALCIUM 9.5 mg/dL (8.4-10.2); CARBON DIOXIDE 29 mmol/L (22-30); CHLORIDE 100 mmol/L (98-107); CREATINE KINASE 839 U/L (55-170); GLUCOSE 142 mg/dL (75-110); POTASSIUM 3.8 mmol/L (3.6-5.0); TOTAL PROTEIN 7.8 g/dL (6.3-8.2)
[2019-07-26] MEDS ORDERED: NORMAL SALINE 1000 ML 1,000 ML IV ONE (00:26)
[2019-07-26] MEDS ORDERED: MORPHINE SULFATE 10 MG/ML INJ IV ONE (01:01)
[2019-07-26] MEDS ORDERED: METHYLPREDNISOLONE INJ 125 MG/2 ML SDV IV ONE (01:01)
[2019-07-26] MEDS ORDERED: ONDANSETRON HCL INJ/PF 4 MG/2 ML SDV IV ONE (01:02)
[2019-07-26 06:26] LABS: ALBUMIN 3.9 g/dL (3.5-5.0); ALKALINE PHOSPHATASE 156 U/L (38-126); ANION GAP 12 (5-19); ASPARTATE AMINO TRANSFERASE 81 U/L (17-59); BILIRUBIN,DIRECT 1.4 mg/dL (0.0-0.4); BILIRUBIN,TOTAL 2.3 mg/dL (0.2-1.3); BLOOD UREA NITROGEN 29 mg/dL (7-20); CALCIUM 9.6 mg/dL (8.4-10.2); CARBON DIOXIDE 27 mmol/L (22-30); CHLORIDE 99 mmol/L (98-107); CREATINE KINASE 597 U/L (55-170); GLUCOSE 207 mg/dL (75-110); POTASSIUM 4.5 mmol/L (3.6-5.0); TOTAL PROTEIN 7.9 g/dL (6.3-8.2)
--- NOTE | 2019-07-26 10:33 | EKG REPORT ---
SEVERITY:- ABNORMAL ECG - SINUS TACHYCARDIA LEFT ATRIAL ABNORMALITY BORDERLINE T ABNORMALITIES, INFERIOR LEADS : Confirmed by: Reji Aguilera MD 26-Jul-2019 10:32:47
[2019-07-26 12:26] VITALS: BP 136/87
== END 2019-07-26 12:27 | disposition home or self-care (01) ==
LOC: ER 16:23
DX: M79.89 Other specified soft tissue disorders (principal); M25.561 Pain in right knee; M79.672 Pain in left foot; G89.29 Other chronic pain; R26.9 Unspecified abnormalities of gait and mobility; I10 Essential (primary) hypertension
CPT/HCPCS: 93005; 99284; 96361; 96374; 96375; 36415; 82550; 85025; 80053; 81001; 93010; L1830; L1902; J2930; J2270; J2405; J7030 ×2

== ENCOUNTER 2019-07-29 17:27 | Inpatient (IN) | payer BC ==
[2019-07-29] MEDS ORDERED: RINGERS SOLUTION,LACTATED 1,000 ML IV ONE (18:04)
[2019-07-29] MEDS ORDERED: HYDROMORPHONE HCL INJ/PF 2 MG/ML AMPULE IV ONE (18:04)
--- NOTE | 2019-07-29 18:05 | ER Document Report ---
ED General - General Stated Complaint: IMMOBILITY Notes: 64-year-old male with gout and obesity presents with worsening right knee pain left elbow and ankle pain, and immobility. Is been seen several times for joint pain takes meloxicam and is at the point now where he is living at home and c annot get out of bed or function with any of his ADLs. He denies fever. His current joint pain flare is been going on for a few weeks but is been seen twice in the ED, says that every time he gets home everything gets worse. TRAVEL OUTSIDE OF THE [place] IN LAST 30 DAYS: No - Related Data Allergies/Adverse Reactions: tramadol Adverse Reaction (Verified 07/21/19 14:00) Past Medical History - Social History Smoking Status: Never Smoker Family History: Reviewed & Not Pertinent - Past Medical History Cardiac Medical History: Reports: Hx Hypertension Renal/ Medical History: Denies: Hx Peritoneal Dialysis Musculoskeletal Medical History: Reports Hx Arthritis - Immunizations Immunizations up to date: Yes Hx Diphtheria, Pertussis, Tetanus Vaccination: Yes Review of Systems - Review of Systems Notes: REVIEW OF SYSTEMS GEN: Denies fever, chills, weight loss ENT: Denies sore throat, nasal discharge, ear pain EYES: Denies blurry vision, eye pain, discharge CV: Denies chest pain, palpitations, edema RESP: Denies cough, shortness of breath, wheezing GI: Denies abdominal pain, nausea, vomiting, diarrhea MSK: Joint pain SKIN: Denies rash, skin lesions LYMPH: Denies swollen glands/lymph nodes NEURO: Denies headache, focal weakness or numbness, dizziness PSYCH: Denies depression, suicidal or homicidal ideation PHYSICAL EXAMINATION General: No acute distress, well-nourished Head: Atraumatic, normocephalic ENT: Mouth normal, oropharynx moist, no exudates or tonsillar enlargement Eyes: Conjunctiva normal, pupils equal, lids normal Neck: No JVD, supple, no guarding CVS: Normal rate, regular rhythm, no murmurs Resp: No resp distress, equal and normal breath sounds bilaterally GI: Nondistended, soft, no tenderness to palpation, no rebound or guarding Ext: Warm effusion of the right knee and left elbow with limited range of motion, left wrist tenderness and warmth as well Chronic appearing left ankle edema with pain on range of motion Back: No CVA or midline TTP Skin: No rash, warm Lymphatic: No lymphadeopathy noted Neuro: Awake, alert. Face symmetric. GCS 15. Course - Re-evaluation Re-evalutation: 07/29/19 20:51 Patient presents with polyarthritis with multiple hot swollen joints, debility and obesity. He has no injection drug use or sexually transmitted disease history however infection is a possibility. Got labs: Grossly elevated CRP mild elevated white count. Added blood cultures, tapped right knee and sent for lab studies. Given pain medicine. Discussed with Dr. Bay from hospitalist servicehe will order antibiotics and admit the patient. - Laboratory Result Diagrams: 07/29/19 18:36 07/29/19 18:36 Laboratory results interpreted by me: 07/29/19 07/29/19 18:36 18:36 WBC 17.3 H RBC 3.89 L Hgb 12.4 L Hct 36.2 L RDW 14.9 H Frontier % (Auto) 14.8 H Absolute Neuts (auto) 10.3 H Absolute Monos (auto) 2.6 H ESR 92 H Chloride 96 L BUN 28 H Glucose 168 H C-Reactive Protein 254.7 H Procedures - Joint Aspiration Right Knee Time completed: 20:50 Consent obtained: Yes Joint aspiration pre-procedure: Betadine prep applied, Sterile drapes applied Anesthetic type: 1% Lidocaine w/epi Needle size: 18 Amount/type of drainage: 10 mL dark green cloudy Number of attempts: 1 Complications: No Notes: Sent to lab for relevant studies Discharge - Discharge Clinical Impression: Polyarthritis Arthralgia Qualifiers: Joint pain location: elbow Laterality: left Qualified Code(s): M25.522 - Pain in left elbow Condition: Good Disposition: ADMITTED INPATIENT Admitting Provider: Phu (Hospitalist) Unit Admitted: Medical Floor
[2019-07-29 18:53] LABS: ABSOLUTE BASOPHILS # (AUTO) 0.2 10^3/uL (0.0-0.2); ABSOLUTE LYMPHOCYTES (AUTO) 4.3 10^3/uL (0.5-4.7); ABSOLUTE MONOCYTES (AUTO) 2.6 10^3/uL (0.1-1.4); ABSOLUTE NEUT (AUTO) 10.3 10^3/uL (1.7-8.2); BASOPHILS % (AUTO) 1.2 % (0-2); HEMATOCRIT 36.2 % (37.9-51.0); HEMOGLOBIN 12.4 g/dL (13.5-17.0); LYMPHOCYTES % (AUTO) 24.6 % (13-45); MEAN CORPUSCULAR HEMOGLOBIN 31.9 pg (27.0-33.4); MEAN CORPUSCULAR HGB CONC 34.3 g/dL (32.0-36.0); MEAN CORPUSCULAR VOLUME 93 fl (80-97); MONOCYTES % (AUTO) 14.8 % (3-13); PLATELET COUNT 410 10^3/uL (150-450); RED BLOOD COUNT 3.89 10^6/uL (4.35-5.55); RED CELL DISTRIBUTION WIDTH 14.9 % (11.5-14.0); SEGMENTED NEUTROPHILS % (AUTO) 59.4 % (42-78); TOTAL CELLS COUNTED % (AUTO) 100 %; WHITE BLOOD COUNT 17.3 10^3/uL (4.0-10.5)
[2019-07-29 19:16] LABS: ANION GAP 14 (5-19); BLOOD UREA NITROGEN 28 mg/dL (7-20); CALCIUM 9.8 mg/dL (8.4-10.2); CARBON DIOXIDE 27 mmol/L (22-30); CHLORIDE 96 mmol/L (98-107); GLUCOSE 168 mg/dL (75-110); POTASSIUM 4.1 mmol/L (3.6-5.0)
[2019-07-29 19:30] LABS: C-REACTIVE PROTEIN 254.7 mg/L (<10.0)
[2019-07-29 19:33] LABS: ERYTHROCYTE SEDIMENTATION RATE 92 mm/hr (0-20)
[2019-07-29] MEDS ORDERED: LIDOCAINE 1.5%/EPINEPHRINE INJ-PF 30 ML SDV INJ ONE (20:10)
[2019-07-29] MEDS ORDERED: LIDOCAINE 1%/EPINEPHRINE INJ 20 ML VIAL INJ ONE (20:15)
[2019-07-29] MEDS ORDERED: MAG HYDROX/AL HYDROX/SIMETH SUSP 30 ML UDCUP PO PRN (20:20)
[2019-07-29] MEDS ORDERED: IPRATROPIUM/ALBUTEROL 0.5-2.5 MG/3 ML AMPUL NEB PRN (20:20)
[2019-07-29] MEDS ORDERED: ACETAMINOPHEN 325 MG TABLET PO PRN (20:20)
[2019-07-29] MEDS ORDERED: MAGNESIUM HYDROXIDE SUSP 30 ML UDCUP PO PRN (20:20)
[2019-07-29] MEDS ORDERED: VANCOMYCIN HCL 0 MG in DEXTROSE 5%-WATER 250 ML IV NR (20:30)
[2019-07-29] MEDS ORDERED: FENTANYL CITRATE INJ/PF 100 MCG/2 ML AMPUL IV ONE (20:35)
[2019-07-29 21:56] LABS: FLUID APPEARANCE SLIGHTLY HAZY; FLUID COLOR YELLOW; FLUID SOURCE KNEE; FLUID TYPE SYNOVIAL; FLUID VISCOSITY MODERATELY VISCOUS
[2019-07-29] MEDS: KETOROLAC TROMETHAMINE INJ/PF 30 MG/1 ML SDV IV PRN (22:11)
[2019-07-29] MEDS: VANCOMYCIN HCL 1,250 MG in DEXTROSE 5%-WATER 250 ML IV SCH (22:17)
[2019-07-29] MEDS: HEPARIN SOD (PORCINE) 5,000 UNIT/ML 1 ML VIAL SUBCUT SCH (22:19)
[2019-07-29 22:42] LABS: CALCIUM PYROPHOSPHATE CRYSTALS NONE OBSERVED; MONOSODIUM URATE CRYSTALS INTRACELLULAR; OTHER CRYSTALS NONE OBSERVED
--- NOTE | 2019-07-30 02:43 | PDOC H&P ---
History of Present Illness Admission Date/PCP: 07/29/19 20:19 CRESCENCIO PIPER MD Patient complains of: Joint pain History of Present Illness: TEVIN GONZALEZ is a 64 year old male with a past medical history of hypertension, morbid obesity and 2 years of severe polyarthritis. Patient was recently referred to pain management initiating Ultram without significant improvement he seen in the emergency room unable to bear weight with worsening of his chronic right elbow, right knee and left ankle pain. Obvious effusion is present and an arthrogram centesis is performed by the emergency room provider which is notable for greater than 4000 white blood cells and red blood cells. Patient denies history of IV drug use or unprotected sex, Gout, or a high purine diet. He started on vancomycin, Rocephin and referred to the hospitalist for admission. Past Medical History Cardiac Medical History: Reports: Hypertension Musculoskeltal Medical History: Reports: Arthritis Past Surgical History Past Surgical History: Reports: None Social History Information Source: Patient, [facility] Records Smoking Status: Never Smoker Electronic Cigarette use?: No Frequency of Alcohol Use: None Drugs: None - Advance Directive Resuscitation Status: Full Code Family History Family History: Arthritis - Sister has similar symptoms Parental Family History Reviewed: Yes Children Family History Reviewed: Yes Sibling(s) Family History Reviewed.: Yes Medication/Allergy Allergies/Adverse Reactions: tramadol Adverse Reaction (Verified 07/21/19 14:00) Review of Systems Constitutional: PRESENT: as per HPI. ABSENT: chills, fatigue, fever(s), headache(s), night sweats, weight gain, weight loss Eyes: ABSENT: visual disturbances Ears: ABSENT: hearing changes Cardiovascular: ABSENT: chest pain, dyspnea on exertion, edema, orthropnea, palpitations Respiratory: ABSENT: cough, hemoptysis Gastrointestinal: ABSENT: abdominal pain, constipation, diarrhea, hematemesis, hematochezia, nausea, vomiting Genitourinary: ABSENT: dysuria, hematuria Musculoskeletal: PRESENT: as per HPI. ABSENT: joint swelling Integumentary: ABSENT: rash, wounds Neurological: ABSENT: abnormal gait, abnormal speech, confusion, dizziness, focal weakness, syncope Psychiatric: ABSENT: anxiety, depression, homidical ideation, suicidal ideation Endocrine: ABSENT: cold intolerance, heat intolerance, polydipsia, polyuria Hematologic/Lymphatic: ABSENT: easy bleeding, easy bruising Physical Exam Vital Signs: Temp Pulse Resp BP Pulse Ox 97.8 F 94 17 154/96 H 94 07/30/19 01:40 07/30/19 01:40 07/30/19 01:40 07/30/19 01:40 07/30/19 01:40 Intake & Output 07/28/19 07/29/19 07/30/19 11:59 11:59 11:59 Intake Total 1250 Balance 1250 Weight 157.397 kg General appearance: PRESENT: cooperative, severe distress, well-developed, well- nourished Head exam: PRESENT: atraumatic, normocephalic Eye exam: PRESENT: conjunctiva pink, EOMI, PERRLA. ABSENT: scleral icterus Ear exam: PRESENT: normal external ear exam Mouth exam: PRESENT: moist, tongue midline Neck exam: ABSENT: carotid bruit, JVD, lymphadenopathy, thyromegaly Respiratory exam: PRESENT: clear to auscultation thomas. ABSENT: rales, rhonchi, wheezes Cardiovascular exam: PRESENT: RRR. ABSENT: diastolic murmur, rubs, systolic murmur Pulses: PRESENT: normal dorsalis pedis pul Vascular exam: PRESENT: normal capillary refill GI/Abdominal exam: PRESENT: normal bowel sounds, soft. ABSENT: distended, guarding, mass, organolmegaly, rebound, tenderness Rectal exam: PRESENT: deferred Extremities exam: PRESENT: joint swelling, tenderness, +1 edema. ABSENT: calf tenderness, clubbing, full ROM - Limited by pain, pedal edema Musculoskeletal exam: PRESENT: tenderness. ABSENT: full ROM - Limited by pain Neurological exam: PRESENT: alert, awake, oriented to person, oriented to place, oriented to time, oriented to situation, CN II-XII grossly intact. ABSENT: motor sensory deficit Psychiatric exam: PRESENT: appropriate affect, normal mood. ABSENT: homicidal ideation, suicidal ideation Skin exam: PRESENT: dry, intact, warm. ABSENT: cyanosis, rash Results Laboratory Results: 07/29/19 18:36 07/29/19 18:36 07/29/19 07/29/19 07/29/19 18:36 18:36 20:49 WBC 17.3 H RBC 3.89 L Hgb 12.4 L Hct 36.2 L MCV 93 MCH 31.9 MCHC 34.3 RDW 14.9 H Plt Count 410 Seg Neutrophils % 59.4 Sodium 137.3 Potassium 4.1 Chloride 96 L Carbon Dioxide 27 Anion Gap 14 BUN 28 H Creatinine 0.78 Est GFR ( Amer) > 60 Glucose 168 H Uric Acid Calcium 9.8 C-Reactive Protein 254.7 H Fluid Type SYNOVIAL Fluid Source KNEE Fluid Color YELLOW Fluid Appearance SLIGHTLY HAZY Fluid Viscosity MODERATELY VISCOUS Fluid WBC 4250 Fluid RBC 4788 07/29/19 07/29/19 20:49 20:54 WBC RBC Hgb Hct MCV MCH MCHC RDW Plt Count Seg Neutrophils % Sodium Potassium Chloride Carbon Dioxide Anion Gap BUN Creatinine Est GFR ( Amer) Glucose Uric Acid 8.0 Calcium C-Reactive Protein Fluid Type SYNOVIAL Fluid Source Fluid Color Fluid Appearance Fluid Viscosity Fluid WBC Fluid RBC 07/29/19 20:54 Creatine Kinase 133 Assessment and Plan - Diagnosis (1) Septic arthritis Is this a current diagnosis for this admission?: Yes Plan: Abrupt worsening of her chronic arthritis affecting the right elbow, right knee and left ankle, likely underlying inflammatory arthritis with possible new septic component. Symptomatic management, empiric antibiotics, follow-up synovial fluid analysis and culture. Consider orthopedic consult (2) Intractable pain Is this a current diagnosis for this admission?: Yes Plan: Secondary to #1, IV Toradol, narcotics as needed breakthrough - Time Time Spent with patient: 25-34 minutes - Inpatient Certification Medical Necessity: Need Close Monitoring Due to Risk of Patient Decompensation
[2019-07-30 03:42] LABS: URINE AMPHETAMINES SCREEN NEGATIVE; URINE BARBITURATES SCREEN NEGATIVE; URINE BENZODIAZEPINES SCREEN NEGATIVE; URINE COCAINE SCREEN NEGATIVE; URINE MARIJUANA (THC) SCREEN NEGATIVE; URINE METHADONE SCREEN NEGATIVE; URINE PHENCYCLIDINE SCREEN NEGATIVE
[2019-07-30] MEDS: KETOROLAC TROMETHAMINE INJ/PF 30 MG/1 ML SDV IV PRN ×2 (05:48→12:34)
[2019-07-30] MEDS: VANCOMYCIN HCL 1,250 MG in DEXTROSE 5%-WATER 250 ML IV SCH ×3 (05:51→22:55)
[2019-07-30] MEDS: HEPARIN SOD (PORCINE) 5,000 UNIT/ML 1 ML VIAL SUBCUT SCH ×3 (05:52→22:56)
[2019-07-30 05:55] LABS: ABSOLUTE BASOPHILS # (AUTO) 0.1 10^3/uL (0.0-0.2); ABSOLUTE LYMPHOCYTES (AUTO) 3.9 10^3/uL (0.5-4.7); ABSOLUTE NEUT (AUTO) 9.3 10^3/uL (1.7-8.2); BASOPHILS % (AUTO) 0.9 % (0-2); HEMATOCRIT 35.3 % (37.9-51.0); HEMOGLOBIN 11.7 g/dL (13.5-17.0); LYMPHOCYTES % (AUTO) 25.4 % (13-45); MEAN CORPUSCULAR HGB CONC 33.2 g/dL (32.0-36.0); MEAN CORPUSCULAR VOLUME 93 fl (80-97); MONOCYTES % (AUTO) 13.2 % (3-13); PLATELET COUNT 364 10^3/uL (150-450); RED BLOOD COUNT 3.78 10^6/uL (4.35-5.55); RED CELL DISTRIBUTION WIDTH 15.1 % (11.5-14.0); SEGMENTED NEUTROPHILS % (AUTO) 60.5 % (42-78); TOTAL CELLS COUNTED % (AUTO) 100 %; WHITE BLOOD COUNT 15.4 10^3/uL (4.0-10.5)
[2019-07-30 06:12] LABS: ANION GAP 9 (5-19); BLOOD UREA NITROGEN 29 mg/dL (7-20); CALCIUM 9.1 mg/dL (8.4-10.2); CARBON DIOXIDE 29 mmol/L (22-30); CHLORIDE 98 mmol/L (98-107); GLUCOSE 144 mg/dL (75-110); POTASSIUM 4.1 mmol/L (3.6-5.0)
[2019-07-30] MEDS: CEFTRIAXONE 1 GM/D5W RTU 1 GM/50 ML RTUPB IV SCH (09:19)
[2019-07-30] MEDS: DOCUSATE SODIUM 100 MG CAPSULE PO SCH ×2 (09:19→18:38)
[2019-07-30 09:48] LABS: APPEARANCE,URINE TURBID; BILIRUBIN,URINE SMALL (NEGATIVE); GLUCOSE, URINE NEGATIVE (NEGATIVE); KETONES,URINE NEGATIVE (NEGATIVE); LEUKOCYTE ESTERASE,URINE NEGATIVE (NEGATIVE); NITRITE,URINE NEGATIVE (NEGATIVE); PROTEIN,URINE NEGATIVE (NEGATIVE); URINE SPECIFIC GRAVITY 1.023
[2019-07-30 09:49] LABS: COLOR,URINE AMBER
[2019-07-30 11:11] LABS: CHLAM PCR NOT DETECTED (NOT DETECT)
--- NOTE | 2019-07-30 16:06 | CDI QUERY ---
CDI Query CDI Review: Dear Provider: To better reflect your patients severity of illness, morbidity, and resource utilization Please specify and document in the Progress Notes and Discharge Summary if you are monitoring / treating / evaluating any of the following conditions: The terms probable, suspected, likely, possible or still to be ruled out may be used if you are unable to determine the exact nature of a condition. Query Clinical indicators Please document if this is a current condition: Morbid obesity / BMI 43.4 Obesity Other Undetermined Per H&P: TEVIN GONZALEZ is a 64 year old male with a past medical history of hypertension, morbid obesity . BMI: 43.4 Thank you, Clinical Documentation Physician Advisors ALAN Smith RN, BSN RN [email or web address] Office [phone] Office [phone]
[2019-07-30] MEDS ORDERED: IBUPROFEN 800 MG TABLET PO SCH (17:45)
--- NOTE | 2019-07-30 17:45 | PDOC PROGRESS REPORT ---
Subjective Progress Note for:: 07/30/19 Subjective:: KAI GONZALEZ is a 64 year old male with a past medical history of hypertension, morbid obesity and 2 years of severe polyarthritis who was admitted 07/29/19 for intractable pain and concern for septic arthritis. Patient was seen on afternoon rounds while still in the emergency department. He was found resting in bed, comfortably, on room air. He reports that his pain is well controlled at present but is severe and intractable with any amount of movement. He has been unable to stand due to pain. He denies recent travel, acute illnesses, STD exposure, tick exposure, familial history of autoimmune disorders, and gout. He does note a severe, and sudden, worsening of his chronic pain approximately 3 weeks ago. 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 He further denies fever, chills, chest pain, palpitations, dyspnea, orthopnea, abdominal pain, nausea vomiting and diarrhea. He has no other questions or concerns at this time. Nursing has no concerns at this time. They do note, however, that APS was contacted due to patient self neglect in the home. And along those lines, they have noted that the patient has been able to eat and drink independently but requires an excessive amount of assistance to use the urinal. Reason For Visit: POLYARTHRITIS Physical Exam Vital Signs: Temp Pulse Resp BP Pulse Ox 98.7 F 94 16 142/89 H 95 07/30/19 10:20 07/30/19 09:02 07/30/19 10:20 07/30/19 10:20 07/30/19 10:20 Intake & Output 07/29/19 07/30/19 07/31/19 06:59 06:59 06:59 Intake Total 1800 550 Output Total 600 Balance 1200 550 Weight 157.397 kg General appearance: PRESENT: no acute distress, cooperative, morbidly obese, well-developed, well-nourished Head exam: PRESENT: atraumatic, normocephalic Eye exam: PRESENT: conjunctiva pink, EOMI, PERRLA. ABSENT: scleral icterus Ear exam: PRESENT: normal external ear exam Mouth exam: PRESENT: moist, tongue midline Respiratory exam: PRESENT: clear to auscultation thomas, unlabored. ABSENT: rales, rhonchi, wheezes Cardiovascular exam: PRESENT: RRR, +S1, +S2. ABSENT: diastolic murmur, rubs, systolic murmur Pulses: PRESENT: normal dorsalis pedis pul Vascular exam: PRESENT: normal capillary refill GI/Abdominal exam: PRESENT: normal bowel sounds, soft. ABSENT: distended, guarding, mass, organolmegaly, rebound, tenderness Rectal exam: PRESENT: deferred Extremities exam: PRESENT: joint swelling - Bilateral elbows, right knee, left ankle, tenderness - Bilateral elbows, wrists, right knee, left ankle. ABSENT: calf tenderness, clubbing, full ROM, pedal edema Neurological exam: PRESENT: alert, awake, oriented to person, oriented to place, oriented to time, oriented to situation, CN II-XII grossly intact. ABSENT: motor sensory deficit Psychiatric exam: PRESENT: appropriate affect, normal mood. ABSENT: homicidal ideation, suicidal ideation Skin exam: PRESENT: dry, intact, warm. ABSENT: cyanosis, rash Results Laboratory Results: 07/30/19 05:46 07/30/19 05:46 07/29/19 07/29/19 07/29/19 18:36 18:36 20:49 WBC 17.3 H RBC 3.89 L Hgb 12.4 L Hct 36.2 L MCV 93 MCH 31.9 MCHC 34.3 RDW 14.9 H Plt Count 410 Seg Neutrophils % 59.4 Sodium 137.3 Potassium 4.1 Chloride 96 L Carbon Dioxide 27 Anion Gap 14 BUN 28 H Creatinine 0.78 Est GFR ( Amer) > 60 Glucose 168 H Uric Acid Calcium 9.8 C-Reactive Protein 254.7 H Urine Color Urine Appearance Urine pH Ur Specific Jackson Urine Protein Urine Glucose (UA) Urine Ketones Urine Blood Urine Nitrite Ur Leukocyte Esterase Urine WBC (Auto) Urine RBC (Auto) Fluid Type SYNOVIAL Fluid Source KNEE Fluid Color YELLOW Fluid Appearance SLIGHTLY HAZY Fluid Viscosity MODERATELY VISCOUS Fluid WBC 4250 Fluid RBC 4788 07/29/19 07/29/19 07/30/19 20:49 20:54 02:58 WBC RBC Hgb Hct MCV MCH MCHC RDW Plt Count Seg Neutrophils % Sodium Potassium Chloride Carbon Dioxide Anion Gap BUN Creatinine Est GFR ( Amer) Glucose Uric Acid 8.0 Calcium C-Reactive Protein Urine Color OSIRIS Urine Appearance TURBID Urine pH 5.0 Ur Specific Jackson 1.023 Urine Protein NEGATIVE Urine Glucose (UA) NEGATIVE Urine Ketones NEGATIVE Urine Blood SMALL H Urine Nitrite NEGATIVE Ur Leukocyte Esterase NEGATIVE Urine WBC (Auto) 9 Urine RBC (Auto) 3 Fluid Type SYNOVIAL Fluid Source Fluid Color Fluid Appearance Fluid Viscosity Fluid WBC Fluid RBC 07/30/19 07/30/19 05:46 05:46 WBC 15.4 H RBC 3.78 L Hgb 11.7 L Hct 35.3 L MCV 93 MCH 31.0 MCHC 33.2 RDW 15.1 H Plt Count 364 Seg Neutrophils % 60.5 Sodium 136.1 L Potassium 4.1 Chloride 98 Carbon Dioxide 29 Anion Gap 9 BUN 29 H Creatinine 0.87 Est GFR ( Amer) > 60 Glucose 144 H Uric Acid Calcium 9.1 C-Reactive Protein Urine Color Urine Appearance Urine pH Ur Specific Jackson Urine Protein Urine Glucose (UA) Urine Ketones Urine Blood Urine Nitrite Ur Leukocyte Esterase Urine WBC (Auto) Urine RBC (Auto) Fluid Type Fluid Source Fluid Color Fluid Appearance Fluid Viscosity Fluid WBC Fluid RBC 07/29/19 20:54 Creatine Kinase 133 Assessment and Plan - Diagnosis (1) Septic arthritis Qualifiers: Septic arthritis location: multiple locations Septic arthritis organism: due to unspecified organism Qualified Code(s): M00.9 - Pyogenic arthritis, unspecified Is this a current diagnosis for this admission?: Yes Plan: Abrupt worsening of her chronic arthritis affecting the bilateral elbows, right knee and left ankle, likely underlying inflammatory arthritis with possible new septic component. Synovial fluid suggest inflammatory reaction. Blood cultures are pending. Right knee synovial fluid has no growth at 1 day. Sed rate 92, CRP 254. WBCs trending down. Patient remains afebrile. GC/chlamydia, HIV, and RPR all negative. Lyme's screening pending. Rheumatoid and ZHOAIB screening pending Patient is admitted to the medical floor. He is provided p.o. prednisone, scheduled Motrin, Lidoderm patches, as needed Tylenol, and nonpharmacological interventions for pain. Limit narcotic use. PT/OT consultation. Consider orthopedic consultation. Consider pain management consultation. Discharge planning is consulted (2) Intractable pain Is this a current diagnosis for this admission?: Yes Plan: Secondary to #1 We will start on scheduled Motrin. Daily p.o. prednisone. Daily Lidoderm patches. Nonpharmacological interventions. Limit narcotic use (3) Hypertension Is this a current diagnosis for this admission?: Yes Plan: Continue the home dose hydrochlorothiazide. Cardiac diet (4) Morbid obesity Is this a current diagnosis for this admission?: Yes Plan: BMI of 43.4. Lifestyle modification dietary discretion advised. PT/OT consulted (5) Polyarthritis Is this a current diagnosis for this admission?: Yes Plan: Patient has severe, chronic, poly-osteoarthritis. Now with acute exacerbation. Evaluation and management as above. (6) Impaired ambulation Is this a current diagnosis for this admission?: Yes Plan: Secondary to #1 and #2. Evaluation and management as above. - Time Time Spent with patient: 35 or more minutes Medications reviewed and adjusted accordingly: Yes Anticipated discharge: Home with Homehealth Within: within 72 hours
[2019-07-30] MEDS: IBUPROFEN 600 MG TABLET PO SCH (18:37)
[2019-07-30] MEDS: PANTOPRAZOLE SODIUM 20 MG TABLET.DR PO SCH (18:37)
[2019-07-30] MEDS: PREDNISONE 20 MG TABLET PO SCH (18:37)
[2019-07-30 22:08] LABS: VANCOMYCIN,TROUGH 11.5 ug/mL (5.0-20.0)
[2019-07-31] MEDS: IBUPROFEN 600 MG TABLET PO SCH ×3 (02:18→17:01)
[2019-07-31] MEDS: VANCOMYCIN HCL 1,250 MG in DEXTROSE 5%-WATER 250 ML IV SCH (05:15)
[2019-07-31] MEDS: HEPARIN SOD (PORCINE) 5,000 UNIT/ML 1 ML VIAL SUBCUT SCH ×3 (05:16→21:05)
[2019-07-31 05:59] LABS: HEMATOCRIT 31.5 % (37.9-51.0); HEMOGLOBIN 10.6 g/dL (13.5-17.0); MEAN CORPUSCULAR HEMOGLOBIN 31.3 pg (27.0-33.4); MEAN CORPUSCULAR HGB CONC 33.5 g/dL (32.0-36.0); MEAN CORPUSCULAR VOLUME 94 fl (80-97); PLATELET COUNT 379 10^3/uL (150-450); RED BLOOD COUNT 3.37 10^6/uL (4.35-5.55); WHITE BLOOD COUNT 13.9 10^3/uL (4.0-10.5)
[2019-07-31 06:15] LABS: ANION GAP 10 (5-19); BLOOD UREA NITROGEN 29 mg/dL (7-20); CARBON DIOXIDE 26 mmol/L (22-30); CHLORIDE 97 mmol/L (98-107); GLUCOSE 176 mg/dL (75-110); POTASSIUM 4.6 mmol/L (3.6-5.0)
--- NOTE | 2019-07-31 09:20 | CDI QUERY ---
<JANAK FRANCO - Last Filed: 07/31/19 09:19> CDI Query CDI Review: Dear Provider, (name): To better reflect your patients severity of illness, morbidity, and resource utilization Please specify and document in the Progress Notes and Discharge Summary if you are monitoring / treating / evaluating any of the following conditions: The terms probable, suspected, likely, possible or still to be ruled out may be used if you are unable to determine the exact nature of a condition. Query Clinical indicators Test test test <CLARI LI - Last Filed: 07/31/19 09:22> CDI Query Agree with Query: No - NA
[2019-07-31] MEDS: PREDNISONE 20 MG TABLET PO SCH (09:23)
[2019-07-31] MEDS: PANTOPRAZOLE SODIUM 20 MG TABLET.DR PO SCH ×2 (09:25→17:01)
[2019-07-31] MEDS: HYDROCHLOROTHIAZIDE 25 MG TABLET PO SCH (09:25)
[2019-07-31] MEDS: CEFTRIAXONE 1 GM/D5W RTU 1 GM/50 ML RTUPB IV SCH (09:25)
[2019-07-31] MEDS: DOCUSATE SODIUM 100 MG CAPSULE PO SCH ×2 (09:25→17:01)
[2019-07-31] MEDS ORDERED: TRAMADOL HCL 50 MG TABLET PO PRN (10:35)
[2019-07-31] MEDS: LIDOCAINE 5% (700 MG) TRANSDERMAL ADH..PATCH TP SCH (11:08)
[2019-07-31] MEDS ORDERED: VANCOMYCIN HCL 1,500 MG in DEXTROSE 5%-WATER 250 ML IV SCH (14:00)
--- NOTE | 2019-07-31 18:06 | PDOC PROGRESS REPORT ---
Subjective Progress Note for:: 07/31/19 Subjective:: KAI GONZALEZ is a 64 year old male with a past medical history of hypertension, morbid obesity and 2 years of severe polyarthritis who was admitted 07/29/19 for intractable pain and concern for septic arthritis. Patient was seen on morning rounds. He is found resting in bed, comfortably, on room air. He reports that his pain is much improved today. He tells me that he believes that his worsening arthritic pain was precipitated by his urinary tract infection. He would like to meet with physical therapy today as he feels that there has not been enough attention paid to his rehabilitation and instead we have been focusing on the cause of his pain. He does express interest in SNF for short-term rehab. He denies fever, chills, chest pain, palpitations, dyspnea, orthopnea, abdominal pain, nausea vomiting and diarrhea. He has no other questions or concerns at this time. Nursing has no concerns at this time. Per nursing, patient later told them to that his polyarthritis is related to a medication reaction to tramadol; it has subsequently been listed as an allergy. Reason For Visit: POLYARTHRITIS Physical Exam Vital Signs: Temp Pulse Resp BP Pulse Ox 97.9 F 80 16 156/92 H 100 07/31/19 11:31 07/31/19 11:31 07/31/19 11:31 07/31/19 11:31 07/31/19 11:31 Intake & Output 07/30/19 07/31/19 08/01/19 06:59 06:59 06:59 Intake Total 1800 2100 550 Output Total 600 1900 Balance 1200 200 550 Weight 157.397 kg 154.4 kg General appearance: PRESENT: no acute distress, morbidly obese, well-developed, well-nourished Head exam: PRESENT: atraumatic, normocephalic Eye exam: PRESENT: conjunctiva pink, EOMI, PERRLA. ABSENT: scleral icterus Ear exam: PRESENT: normal external ear exam Mouth exam: PRESENT: moist, tongue midline Respiratory exam: PRESENT: clear to auscultation thomas, symmetrical, unlabored. ABSENT: rales, rhonchi, wheezes Cardiovascular exam: PRESENT: RRR, +S1, +S2. ABSENT: diastolic murmur, rubs, systolic murmur Pulses: PRESENT: normal dorsalis pedis pul Vascular exam: PRESENT: normal capillary refill GI/Abdominal exam: PRESENT: normal bowel sounds, soft. ABSENT: distended, guarding, mass, organolmegaly, rebound, tenderness Rectal exam: PRESENT: deferred Extremities exam: PRESENT: joint swelling - Right knee, other - Migratory polyarthritic pain; most significant to his right knee, left ankle, bilateral elbows. ABSENT: calf tenderness, clubbing, pedal edema Neurological exam: PRESENT: alert, awake, oriented to person, oriented to place, oriented to time, oriented to situation, CN II-XII grossly intact. ABSENT: motor sensory deficit Psychiatric exam: PRESENT: appropriate affect, normal mood. ABSENT: homicidal ideation, suicidal ideation Skin exam: PRESENT: dry, intact, warm. ABSENT: cyanosis, rash Results Laboratory Results: 07/31/19 05:04 07/31/19 05:04 07/31/19 07/31/19 05:04 05:04 WBC 13.9 H RBC 3.37 L Hgb 10.6 L Hct 31.5 L MCV 94 MCH 31.3 MCHC 33.5 RDW 15.0 H Plt Count 379 Sodium 133.2 L Potassium 4.6 Chloride 97 L Carbon Dioxide 26 Anion Gap 10 BUN 29 H Creatinine 0.79 Est GFR ( Amer) > 60 Glucose 176 H Calcium 9.0 07/29/19 20:54 Creatine Kinase 133 Assessment and Plan - Diagnosis (1) Septic arthritis Qualifiers: Septic arthritis location: multiple locations Septic arthritis organism: due to unspecified organism Qualified Code(s): M00.9 - Pyogenic arthritis, unspecified Is this a current diagnosis for this admission?: Yes Plan: Low suspicion for septic arthritis at this time. Abrupt worsening of her chronic arthritis affecting the bilateral elbows, right knee and left ankle, likely underlying inflammatory arthritis with possible new septic component. Synovial fluid suggest inflammatory reaction. Blood cultures are negative at 24 hours Right knee synovial fluid has no growth at 2 days Sed rate 92, CRP 254. WBCs trending down. Patient remains afebrile. GC/chlamydia, HIV, and RPR all negative. Lyme's screening pending. Rheumatoid factor negative. ZOHAIB screening pending Patient is admitted to the medical floor. He is provided p.o. prednisone, scheduled Motrin, Lidoderm patches, as needed Tylenol, and nonpharmacological interventions for pain. Limit narcotic use. PT/OT consultation. Have consulted pain management; appreciate their evaluation and recommendations. Patient was empirically placed on IV Rocephin and vancomycin. As the patient remains afebrile with negative cultures and downward trend in WBCs, will discontinue vancomycin today. Consider orthopedic consultation. Discharge planning is consulted (2) Intractable pain Is this a current diagnosis for this admission?: Yes Plan: Secondary to #1 Continue on scheduled Motrin. Daily p.o. prednisone. Daily Lidoderm patches. Nonpharmacological interventions. Limit narcotic use Inconsistent exam noted by PT/OT (3) Hypertension Is this a current diagnosis for this admission?: Yes Plan: Continue the home dose hydrochlorothiazide. Blood pressures remain uncontrolled, will start lisinopril. Cardiac diet (4) Morbid obesity Is this a current diagnosis for this admission?: Yes Plan: BMI of 43.4. Lifestyle modification dietary discretion advised. PT/OT consulted (5) Polyarthritis Is this a current diagnosis for this admission?: Yes Plan: Patient has severe, chronic, poly-osteoarthritis. Now with acute exacerbation. Evaluation and management as above. (6) Impaired ambulation Is this a current diagnosis for this admission?: Yes Plan: Secondary to #1 and #2. Evaluation and management as above.
[2019-07-31] MEDS: PHARMACY COMMUNICATION ORDER MC SCH (21:05)
[2019-08-01] MEDS: IBUPROFEN 600 MG TABLET PO SCH ×3 (01:36→17:23)
[2019-08-01 05:39] LABS: HEMATOCRIT 31.7 % (37.9-51.0); HEMOGLOBIN 10.6 g/dL (13.5-17.0); MEAN CORPUSCULAR HEMOGLOBIN 31.2 pg (27.0-33.4); MEAN CORPUSCULAR HGB CONC 33.5 g/dL (32.0-36.0); MEAN CORPUSCULAR VOLUME 93 fl (80-97); PLATELET COUNT 389 10^3/uL (150-450); RED BLOOD COUNT 3.41 10^6/uL (4.35-5.55); WHITE BLOOD COUNT 14.5 10^3/uL (4.0-10.5)
[2019-08-01 05:50] LABS: ANION GAP 9 (5-19); BLOOD UREA NITROGEN 35 mg/dL (7-20); CARBON DIOXIDE 27 mmol/L (22-30); CHLORIDE 99 mmol/L (98-107); GLUCOSE 148 mg/dL (75-110); POTASSIUM 4.2 mmol/L (3.6-5.0)
[2019-08-01] MEDS: HEPARIN SOD (PORCINE) 5,000 UNIT/ML 1 ML VIAL SUBCUT SCH ×3 (06:19→21:04)
[2019-08-01] MEDS: HYDROCHLOROTHIAZIDE 25 MG TABLET PO SCH (08:17)
[2019-08-01] MEDS: DOCUSATE SODIUM 100 MG CAPSULE PO SCH ×2 (09:37→17:23)
[2019-08-01] MEDS: PREDNISONE 20 MG TABLET PO SCH (09:38)
[2019-08-01] MEDS: PANTOPRAZOLE SODIUM 20 MG TABLET.DR PO SCH ×2 (09:38→17:23)
[2019-08-01] MEDS: CEFTRIAXONE 1 GM/D5W RTU 1 GM/50 ML RTUPB IV SCH (09:39)
[2019-08-01] MEDS: LIDOCAINE 5% (700 MG) TRANSDERMAL ADH..PATCH TP SCH (09:40)
[2019-08-01] MEDS ORDERED: LISINOPRIL 10 MG TABLET PO SCH (10:00)
--- NOTE | 2019-08-01 14:57 | PDOC PROGRESS REPORT ---
Subjective Progress Note for:: 08/01/19 Subjective:: KAI GONZALEZ is a 64 year old male with a past medical history of hypertension, morbid obesity and 2 years of severe polyarthritis who was admitted 07/29/19 for intractable pain and concern for septic arthritis. Patient was seen on morning rounds. He is found resting in bed, comfortably, on room air. He reports that his pain is much improved today. He does express i nterest in SNF for short-term rehab. Does report constipation. He denies fever, chills, chest pain, palpitations, dyspnea, orthopnea, abdominal pain, nausea vomiting and diarrhea, dysuria, hematuria. He has no other questions or concerns at this time. No concerns per nursing. Reason For Visit: POLYARTHRITIS Physical Exam Vital Signs: Temp Pulse Resp BP Pulse Ox 98.1 F 82 16 149/95 H 97 08/01/19 11:06 08/01/19 11:06 08/01/19 11:06 08/01/19 11:06 08/01/19 11:06 Intake & Output 07/31/19 08/01/19 08/02/19 06:59 06:59 06:59 Intake Total 2100 1944 240 Output Total 1900 1300 700 Balance 200 644 -460 Weight 154.4 kg 154 kg General appearance: PRESENT: no acute distress, cooperative, morbidly obese, well-developed, well-nourished Head exam: PRESENT: atraumatic, normocephalic Eye exam: PRESENT: conjunctiva pink, EOMI, PERRLA. ABSENT: scleral icterus Ear exam: PRESENT: normal external ear exam Mouth exam: PRESENT: moist, tongue midline Respiratory exam: PRESENT: clear to auscultation thomas, symmetrical, unlabored. ABSENT: rales, rhonchi, wheezes Cardiovascular exam: PRESENT: RRR, +S1, +S2. ABSENT: diastolic murmur, rubs, systolic murmur Pulses: PRESENT: normal dorsalis pedis pul Vascular exam: PRESENT: normal capillary refill GI/Abdominal exam: PRESENT: normal bowel sounds, soft. ABSENT: distended, g uarding, mass, organolmegaly, rebound, tenderness Rectal exam: PRESENT: deferred Extremities exam: PRESENT: full ROM, tenderness - Rt knee. ABSENT: calf tenderness, clubbing, pedal edema Neurological exam: PRESENT: alert, awake, oriented to person, oriented to place, oriented to time, oriented to situation, CN II-XII grossly intact. ABSENT: motor sensory deficit Psychiatric exam: PRESENT: normal mood, unusual affect. ABSENT: homicidal ideation, suicidal ideation Skin exam: PRESENT: dry, intact, warm. ABSENT: cyanosis, rash Results Laboratory Results: 08/01/19 04:59 08/01/19 04:59 08/01/19 08/01/19 04:59 04:59 WBC 14.5 H RBC 3.41 L Hgb 10.6 L Hct 31.7 L MCV 93 MCH 31.2 MCHC 33.5 RDW 15.0 H Plt Count 389 Sodium 134.7 L Potassium 4.2 Chloride 99 Carbon Dioxide 27 Anion Gap 9 BUN 35 H Creatinine 0.83 Est GFR ( Amer) > 60 Glucose 148 H Calcium 9.0 07/29/19 20:49 Knee Fluid - Right Gram Stain - Final 07/29/19 20:54 Creatine Kinase 133 Assessment and Plan - Diagnosis (1) Septic arthritis Qualifiers: Septic arthritis location: multiple locations Septic arthritis organism: due to unspecified organism Qualified Code(s): M00.9 - Pyogenic arthritis, unspecified Is this a current diagnosis for this admission?: Yes Plan: Ruled out. Abrupt worsening of her chronic arthritis affecting the bilateral elbows, right knee and left ankle, likely underlying inflammatory arthritis with possible new septic component. Synovial fluid suggest inflammatory reaction. Blood cultures are negative at 48 hours Right knee synovial fluid has no growth at 3 days Sed rate 92, CRP 254. Patient remains afebrile. GC/chlamydia, HIV, and RPR all negative. Lyme's screening pending. Rheumatoid factor negative. ZOHAIB screening negative Patient is admitted to the medical floor. He is provided p.o. prednisone, scheduled Motrin, Lidoderm patches, as needed Tylenol, and nonpharmacological interventions for pain. Limit narcotic use. PT/OT consultation. Have consulted pain management; appreciate their evaluation and recommendations. Vancomycin discontinued Day #2. Rocephin discontinued Day #3. Consider orthopedic consultation. Discharge planning is consulted (2) Intractable pain Is this a current diagnosis for this admission?: Yes Plan: Secondary to #1 Continue on scheduled Motrin. Daily p.o. prednisone. Daily Lidoderm patches. Nonpharmacological interventions. Limit narcotic use Inconsistent exam noted by PT/OT (3) Hypertension Is this a current diagnosis for this admission?: Yes Plan: Continue the home dose hydrochlorothiazide. Blood pressures remain uncontrolled; continue lisinopril. Cardiac diet (4) Morbid obesity Is this a current diagnosis for this admission?: Yes Plan: BMI of 42.4 Lifestyle modification dietary discretion advised. PT/OT consulted (5) Polyarthritis Is this a current diagnosis for this admission?: Yes Plan: Patient has severe, chronic, poly-osteoarthritis. Now with acute exacerbation. Evaluation and management as above. (6) Impaired ambulation Is this a current diagnosis for this admission?: Yes Plan: Secondary to #1 and #2. Evaluation and management as above. - Time Time Spent with patient: 25-34 minutes Medications reviewed and adjusted accordingly: Yes Anticipated discharge: SNF Within: when bed available
[2019-08-01 15:07] LABS: LYME DISEASE IGM AB <0.80 index (0.00-0.79)
[2019-08-01] MEDS: PHARMACY COMMUNICATION ORDER MC SCH (21:08)
[2019-08-02] MEDS: IBUPROFEN 600 MG TABLET PO SCH ×3 (02:04→17:52)
[2019-08-02] MEDS: HEPARIN SOD (PORCINE) 5,000 UNIT/ML 1 ML VIAL SUBCUT SCH ×3 (05:20→21:38)
[2019-08-02 06:14] LABS: HEMATOCRIT 33.6 % (37.9-51.0); MEAN CORPUSCULAR HEMOGLOBIN 30.8 pg (27.0-33.4); MEAN CORPUSCULAR HGB CONC 32.6 g/dL (32.0-36.0); MEAN CORPUSCULAR VOLUME 94 fl (80-97); PLATELET COUNT 433 10^3/uL (150-450); RED BLOOD COUNT 3.56 10^6/uL (4.35-5.55); RED CELL DISTRIBUTION WIDTH 14.9 % (11.5-14.0); WHITE BLOOD COUNT 15.4 10^3/uL (4.0-10.5)
[2019-08-02 07:19] LABS: ERYTHROCYTE SEDIMENTATION RATE 102 mm/hr (0-20)
[2019-08-02] MEDS: HYDROCHLOROTHIAZIDE 25 MG TABLET PO SCH (08:17)
[2019-08-02] MEDS: PREDNISONE 20 MG TABLET PO SCH (09:08)
[2019-08-02] MEDS: DOCUSATE SODIUM 100 MG CAPSULE PO SCH ×2 (09:08→17:52)
[2019-08-02] MEDS: LISINOPRIL 10 MG TABLET PO SCH (09:08)
[2019-08-02] MEDS: PANTOPRAZOLE SODIUM 20 MG TABLET.DR PO SCH ×2 (09:08→17:52)
[2019-08-02] MEDS: LIDOCAINE 5% (700 MG) TRANSDERMAL ADH..PATCH TP SCH (09:09)
--- NOTE | 2019-08-02 15:19 | PDOC PROGRESS REPORT ---
Subjective Progress Note for:: 08/02/19 Subjective:: KAI GONZALEZ is a 64 year old male with a past medical history of hypertension, morbid obesity and 2 years of severe polyarthritis who was admitted 07/29/19 for intractable pain and concern for septic arthritis. Patient was seen on morning rounds. He is found resting in bed, comfortably, on room air. He reports that his pain is much improved today. He express interest in SNF for short-term rehab. He denies fever, chills, chest pain, palpitations, dyspnea, orthopnea, abdominal pain, nausea vomiting and diarrhea, dysuria, hematuria. He has no other questions or concerns at this time. No concerns per nursing. Reason For Visit: POLYARTHRITIS Physical Exam Vital Signs: Temp Pulse Resp BP Pulse Ox 97.3 F 79 17 133/93 H 95 08/02/19 12:00 08/02/19 12:00 08/02/19 12:00 08/02/19 12:00 08/02/19 12:00 Intake & Output 08/01/19 08/02/19 08/03/19 06:59 06:59 06:59 Intake Total 1944 1500 Output Total 1300 1900 Balance 644 -400 Weight 154 kg 152.2 kg General appearance: PRESENT: no acute distress, morbidly obese, well-developed, well-nourished Head exam: PRESENT: atraumatic, normocephalic Eye exam: PRESENT: conjunctiva pink, EOMI, PERRLA. ABSENT: scleral icterus Mouth exam: PRESENT: moist, tongue midline Respiratory exam: PRESENT: clear to auscultation thomas, symmetrical, unlabored. ABSENT: rales, rhonchi, wheezes Cardiovascular exam: PRESENT: RRR. ABSENT: diastolic murmur, rubs, systolic murmur Rectal exam: PRESENT: deferred Extremities exam: PRESENT: full ROM, joint swelling - Rt knee; significantly improved, tenderness - Rt knee. ABSENT: calf tenderness, clubbing, pedal edema Neurological exam: PRESENT: alert, awake, oriented to person, oriented to place, oriented to time, oriented to situation, CN II-XII grossly intact. ABSENT: motor sensory deficit Psychiatric exam: PRESENT: appropriate affect, normal mood. ABSENT: homicidal ideation, suicidal ideation Skin exam: PRESENT: dry, intact, warm. ABSENT: cyanosis, rash Results Laboratory Results: 08/02/19 05:15 08/01/19 04:59 08/02/19 08/02/19 05:15 05:15 WBC 15.4 H RBC 3.56 L Hgb 11.0 L Hct 33.6 L MCV 94 MCH 30.8 MCHC 32.6 RDW 14.9 H Plt Count 433 C-Reactive Protein 55.6 H 07/29/19 20:49 Knee Fluid - Right Gram Stain - Final 07/29/19 20:49 Knee Fluid - Right Body Fluid Culture - Final NO AEROBIC OR ANAEROBIC ORGANISMS RECOVERED 07/29/19 20:54 Creatine Kinase 133 Assessment and Plan - Diagnosis (1) Septic arthritis Qualifiers: Septic arthritis location: multiple locations Septic arthritis organism: due to unspecified organism Qualified Code(s): M00.9 - Pyogenic arthritis, unspecified Is this a current diagnosis for this admission?: Yes Plan: Ruled out. Abrupt worsening of her chronic arthritis affecting the bilateral elbows, right knee and left ankle, likely underlying inflammatory arthritis with possible new septic component. Synovial fluid suggest inflammatory reaction. Blood cultures are negative at 72 hours Right knee synovial fluid has no growth Sed rate 92, CRP 254. Tending down; Sed rate 102, CRP 55.6 Patient remains afebrile. GC/chlamydia, HIV, and RPR all negative. Lyme's screening negative Rheumatoid factor negative. ZOHAIB screening negative Patient is admitted to the medical floor. He is provided p.o. prednisone, scheduled Motrin, Lidoderm patches, as needed Tylenol, and nonpharmacological interventions for pain. Limit narcotic use. PT/OT consultation. Have consulted pain management; appreciate their evaluation and recommendations. Consider gabapentin for adjunctive therapy. Vancomycin discontinued Day #2. Rocephin discontinued Day #3. Discharge planning is consulted (2) Intractable pain Is this a current diagnosis for this admission?: Yes Plan: Improved. Secondary to #1 Continue on scheduled Motrin. Daily p.o. prednisone. Daily Lidoderm patches. Nonpharmacological interventions. Limit narcotic use Inconsistent exam noted by PT/OT (3) Hypertension Is this a current diagnosis for this admission?: Yes Plan: Continue the home dose hydrochlorothiazide. Improved with admission of lisinopril. Cardiac diet (4) Morbid obesity Is this a current diagnosis for this admission?: Yes Plan: BMI of 41.9 Lifestyle modification dietary discretion advised. PT/OT consulted (5) Polyarthritis Is this a current diagnosis for this admission?: Yes Plan: Patient has severe, chronic, poly-osteoarthritis. Now with acute exacerbation. Evaluation and management as above. (6) Impaired ambulation Is this a current diagnosis for this admission?: Yes - Time Time Spent with patient: 15-24 minutes Medications reviewed and adjusted accordingly: Yes Anticipated discharge: SNF Within: when bed available
[2019-08-02] MEDS: PHARMACY COMMUNICATION ORDER MC SCH (21:38)
[2019-08-03] MEDS: HEPARIN SOD (PORCINE) 5,000 UNIT/ML 1 ML VIAL SUBCUT SCH ×3 (05:48→21:04)
[2019-08-03] MEDS: IBUPROFEN 600 MG TABLET PO SCH ×3 (05:48→18:26)
[2019-08-03] MEDS: HYDROCHLOROTHIAZIDE 25 MG TABLET PO SCH (08:09)
[2019-08-03] MEDS: PREDNISONE 20 MG TABLET PO SCH (09:34)
[2019-08-03] MEDS: PANTOPRAZOLE SODIUM 20 MG TABLET.DR PO SCH ×2 (09:34→18:26)
[2019-08-03] MEDS: LISINOPRIL 10 MG TABLET PO SCH (09:34)
[2019-08-03] MEDS: LIDOCAINE 5% (700 MG) TRANSDERMAL ADH..PATCH TP SCH (09:42)
[2019-08-03] MEDS: DOCUSATE SODIUM 100 MG CAPSULE PO SCH ×2 (10:20→18:26)
--- NOTE | 2019-08-03 12:54 | PDOC PROGRESS REPORT ---
Subjective Progress Note for:: 08/03/19 Subjective:: KAI GONZALEZ is a 64 year old male with a past medical history of hypertension, morbid obesity and 2 years of severe polyarthritis who was admitted 07/29/19 for intractable pain and concern for septic arthritis. Patient was seen on morning rounds. He is found resting in bed, comfortably, on room air. He reports that his pain is much improved today. He remains intere sted in SNF for short-term rehab. He denies fever, chills, chest pain, palpitations, dyspnea, orthopnea, abdominal pain, nausea vomiting and diarrhea, dysuria, hematuria. He has no other questions or concerns at this time. No concerns per nursing. Reason For Visit: POLYARTHRITIS Physical Exam Vital Signs: Temp Pulse Resp BP Pulse Ox 98.4 F 94 16 132/79 H 97 08/03/19 08:59 08/03/19 08:59 08/03/19 08:59 08/03/19 08:59 08/03/19 08:59 Intake & Output 08/02/19 08/03/19 08/04/19 06:59 06:59 06:59 Intake Total 1500 2190 Output Total 1900 3375 Balance -400 -1185 Weight 152.2 kg 151.2 kg General appearance: PRESENT: no acute distress, cooperative, morbidly obese, well-developed, well-nourished Head exam: PRESENT: atraumatic, normocephalic Eye exam: PRESENT: conjunctiva pink, EOMI, PERRLA. ABSENT: scleral icterus Ear exam: PRESENT: normal external ear exam Mouth exam: PRESENT: moist, tongue midline Respiratory exam: PRESENT: clear to auscultation thomas, symmetrical, unlabored. ABSENT: rales, rhonchi, wheezes Cardiovascular exam: PRESENT: RRR, +S1, +S2. ABSENT: diastolic murmur, rubs, systolic murmur Pulses: PRESENT: normal dorsalis pedis pul Vascular exam: PRESENT: normal capillary refill GI/Abdominal exam: PRESENT: normal bowel sounds, soft. ABSENT: distended, guarding, mass, organolmegaly, rebound, tenderness Rectal exam: PRESENT: deferred Extremities exam: PRESENT: full ROM, tenderness - multiple joints. ABSENT: calf tenderness, clubbing, pedal edema Neurological exam: PRESENT: alert, awake, oriented to person, oriented to place, oriented to time, oriented to situation, CN II-XII grossly intact. ABSENT: motor sensory deficit Psychiatric exam: PRESENT: appropriate affect, normal mood. ABSENT: homicidal ideation, suicidal ideation Skin exam: PRESENT: dry, intact, warm. ABSENT: cyanosis, rash Results Laboratory Results: 08/02/19 05:15 08/01/19 04:59 07/29/19 20:49 Knee Fluid - Right Gram Stain - Final 07/29/19 20:49 Knee Fluid - Right Body Fluid Culture - Final NO AEROBIC OR ANAEROBIC ORGANISMS RECOVERED 07/29/19 20:54 Creatine Kinase 133 Assessment and Plan - Diagnosis (1) Septic arthritis Qualifiers: Septic arthritis location: multiple locations Septic arthritis organism: due to unspecified organism Qualified Code(s): M00.9 - Pyogenic arthritis, un specified Is this a current diagnosis for this admission?: Yes Plan: Ruled out. Abrupt worsening of her chronic arthritis affecting the bilateral elbows, right knee and left ankle, likely underlying inflammatory arthritis with possible new septic component. Synovial fluid suggest inflammatory reaction. Blood cultures are negative at 4 days Right knee synovial fluid has no growth Sed rate 92, CRP 254. Tending down; Sed rate 102, CRP 55.6 Patient remains afebrile. GC/chlamydia, HIV, and RPR all negative. Lyme's screening negative Rheumatoid factor negative. ZOHAIB screening negative Patient is admitted to the medical floor. He is provided p.o. prednisone, scheduled Motrin, Lidoderm patches, as needed Tylenol, and nonpharmacological interventions for pain. Limit narcotic use. PT/OT consultation; max assist x2 to stand. Have consulted pain management; appreciate their evaluation and recommendations. Consider gabapentin for adjunctive therapy. Vancomycin discontinued Day #2. Rocephin discontinued Day #3. Discharge planning is consulted (2) Intractable pain Is this a current diagnosis for this admission?: Yes Plan: Improved. Secondary to #1 Continue on scheduled Motrin. Daily p.o. prednisone. Daily Lidoderm patches. Nonpharmacological interventions. Limit narcotic use (3) Hypertension Is this a current diagnosis for this admission?: Yes Plan: Continue the home dose hydrochlorothiazide. Improved with admission of lisinopril. Cardiac diet (4) Morbid obesity Is this a current diagnosis for this admission?: Yes Plan: BMI of 41.9 Lifestyle modification dietary discretion advised. PT/OT consulted (5) Polyarthritis Is this a current diagnosis for this admission?: Yes Plan: Patient has severe, chronic, poly-osteoarthritis. Now with acute exacerbation; improving. Evaluation and management as above. (6) Impaired ambulation Is this a current diagnosis for this admission?: Yes Plan: Secondary to #1 and #2. Evaluation and management as above. - Time Time Spent with patient: 15-24 minutes Medications reviewed and adjusted accordingly: Yes Anticipated discharge: SNF Within: when bed available
[2019-08-03] MEDS: PHARMACY COMMUNICATION ORDER MC SCH (21:04)
[2019-08-04] MEDS: IBUPROFEN 600 MG TABLET PO SCH ×3 (02:08→17:16)
[2019-08-04] MEDS: HEPARIN SOD (PORCINE) 5,000 UNIT/ML 1 ML VIAL SUBCUT SCH ×3 (05:25→21:03)
[2019-08-04] MEDS: LISINOPRIL 10 MG TABLET PO SCH (09:01)
[2019-08-04] MEDS: PANTOPRAZOLE SODIUM 20 MG TABLET.DR PO SCH ×2 (09:01→17:16)
[2019-08-04] MEDS: DOCUSATE SODIUM 100 MG CAPSULE PO SCH ×2 (09:01→17:18)
[2019-08-04] MEDS: HYDROCHLOROTHIAZIDE 25 MG TABLET PO SCH (09:01)
[2019-08-04] MEDS: PREDNISONE 20 MG TABLET PO SCH (09:02)
[2019-08-04] MEDS: LIDOCAINE 5% (700 MG) TRANSDERMAL ADH..PATCH TP SCH (09:02)
--- NOTE | 2019-08-04 12:37 | PDOC TRANSFER SUMMARY ---
<CLARI LI - Last Filed: 08/04/19 12:25> Impression - Admit/DC Date/PCP Admission Date/Primary Care Provider: 07/29/19 20:19 CRESCENCIO PIPER MD Discharge Date: 08/04/19 - Discharge Diagnosis (1) Septic arthritis Is this a current diagnosis for this admission?: Yes (2) Intractable pain Is this a current diagnosis for this admission?: Yes (3) Hypertension Is this a current diagnosis for this admission?: Yes (4) Morbid obesity Is this a current diagnosis for this admission?: Yes (5) Polyarthritis Is this a current diagnosis for this admission?: Yes (6) Impaired ambulation Is this a current diagnosis for this admission?: Yes - Additional Information Resuscitation Status: Full Code Discharge Diet: Cardiac Discharge Activity: Activity As Tolerated, Balance Activity w/Rest, Slowly Increase Activity Referrals: CRESCENCIO PIPER MD [Primary Care Provider] - 08/06/19 1:15 pm Prescriptions: Prednisone [Deltasone 20 mg Tablet] 20 mg PO ASDIR PRN #20 tablet PRN Reason: Lidocaine [Lidoderm 5% (700 mg) Transdermal Patch] 1 patch TP DAILY #30 adh..patch Ibuprofen [Motrin 600 mg Tablet] 600 mg PO Q8A #15 tablet Lisinopril [Prinivil 10 mg Tablet] 20 mg PO DAILY #60 tablet Pantoprazole Sodium [Protonix [address] Tablet] 20 mg PO DAILY #30 tablet. Home Medications: Hydrochlorothiazide [Hydrodiuril 25 mg Tablet] 25 mg PO QAM 07/30/19 Acetaminophen [Tylenol 325 mg Tablet] 650 mg PO Q4HP PRN tablet 08/03/19 Docusate Sodium [Colace 100 mg Capsule] 100 mg PO BID capsule 08/03/19 Ibuprofen [Motrin 600 mg Tablet] 600 mg PO Q8A #15 tablet 08/03/19 Lidocaine [Lidoderm 5% (700 mg) Transdermal Patch] 1 patch TP DAILY #30 adh..patch 08/03/19 Lisinopril [Prinivil 10 mg Tablet] 20 mg PO DAILY #60 tablet 08/03/19 Pantoprazole Sodium [Protonix [address] Tablet] 20 mg PO DAILY #30 tablet.dr 08/03/19 Prednisone [Deltasone 20 mg Tablet] 20 mg PO ASDIR PRN #20 tablet 08/03/19 History of Present Illiness History of Present Illness: Per H&P by Dr. Bay: TEVIN GONZALEZ is a 64 year old male with a past medical history of hypertension, morbid obesity and 2 years of severe polyarthritis. Patient was recently referred to pain management initiating Ultram without significant improvement he seen in the emergency room unable to bear weight with worsening of his chronic right elbow, right knee and left ankle pain. Obvious effusion is present and an arthrogram centesis is performed by the emergency room provider which is notable for greater than 4000 white blood cells and red blood cells. Patient denies history of IV drug use or unprotected sex, Gout, or a high purine diet. He started on vancomycin, Rocephin and referred to the hospitalist for admission. Hospital Course Hospital Course: (1) Septic arthritis Ruled out. Abrupt worsening of her chronic arthritis affecting the bilateral elbows, right knee and left ankle, likely underlying inflammatory arthritis with possible new septic component. Synovial fluid suggest inflammatory reaction. Blood cultures are negative Right knee synovial fluid has no growth Sed rate 92, CRP 254. Tending down; Sed rate 102, CRP 55.6 Patient remains afebrile. GC/chlamydia, HIV, and RPR all negative. Lyme's screening negative Rheumatoid factor negative. ZOHAIB screening negative Patient was admitted to the medical floor. He did empirically receive Vancomycin (discontinued Day #2) and Rocephin (discontinued Day #3). Which were discontinued as cultures resulted. He was provided p.o. prednisone, scheduled Motrin, Lidoderm patches, as needed Tylenol, and nonpharmacological interventions for pain. PT/OT consultation; max assist x2 to stand. Patient request discharge to SNF for continued short-term rehab. Strongly recommend follow-up with a vocational psychologist, Dr. Valencia, at the earliest available appointment. (2) Intractable pain Improved. Secondary to #1 Analgesic medications as above. (3) Hypertension Continue the home dose hydrochlorothiazide. Continue lisinopril. Cardiac diet (4) Morbid obesity BMI of 42.2 Lifestyle modification dietary discretion advised. (5) Polyarthritis Patient has severe, chronic, poly-osteoarthritis. Now with acute exacerbation; improving with prednisone and NSAIDs.. Remaining evaluation and management as above. Strongly recommend follow-up appointment with rheumatology. (6) Impaired ambulation Improved. Secondary to #1 and #2. Evaluation and management as above. Physical Exam Vital Signs: Temp Pulse Resp BP Pulse Ox 97.9 F 78 18 127/81 H 96 08/04/19 07:40 08/04/19 07:40 08/04/19 07:40 08/04/19 07:40 08/04/19 07:40 Intake & Output 08/03/19 08/04/19 08/05/19 06:59 06:59 06:59 Intake Total 2190 1605 Output Total 3375 2035 Balance -1185 -1220 Weight 151.2 kg 153.3 kg General appearance: PRESENT: no acute distress, cooperative, morbidly obese, well-developed, well-nourished Head exam: PRESENT: atraumatic, normocephalic Eye exam: PRESENT: conjunctiva pink, EOMI, PERRLA. ABSENT: scleral icterus Ear exam: PRESENT: normal external ear exam Mouth exam: PRESENT: moist, tongue midline Respiratory exam: PRESENT: clear to auscultation thomas, symmetrical, unlabored. ABSENT: rales, rhonchi, wheezes Cardiovascular exam: PRESENT: RRR, +S1, +S2. ABSENT: diastolic murmur, rubs, systolic murmur Pulses: PRESENT: normal dorsalis pedis pul Vascular exam: PRESENT: normal capillary refill GI/Abdominal exam: PRESENT: normal bowel sounds, soft. ABSENT: distended, guarding, mass, organolmegaly, rebound, tenderness Rectal exam: PRESENT: deferred Extremities exam: PRESENT: full ROM. ABSENT: calf tenderness, clubbing, pedal edema Musculoskeletal exam: PRESENT: tenderness - w/ slight warmth, erythema and edema to right knee.. ABSENT: ambulatory - 2 person assist to stand Neurological exam: PRESENT: alert, awake, oriented to person, oriented to place, oriented to time, oriented to situation, CN II-XII grossly intact. ABSENT: motor sensory deficit Psychiatric exam: PRESENT: appropriate affect, normal mood. ABSENT: homicidal ideation, suicidal ideation Skin exam: PRESENT: dry, erythema - Right knee, intact, warm. ABSENT: cyanosis, rash Results Laboratory Results: WBC 15.4 10^3/uL (4.0-10.5) H 08/02/19 05:15 RBC 3.56 10^6/uL (4.35-5.55) L 08/02/19 05:15 Hgb 11.0 g/dL (13.5-17.0) L 08/02/19 05:15 Hct 33.6 % (37.9-51.0) L 08/02/19 05:15 MCV 94 fl (80-97) 08/02/19 05:15 MCH 30.8 pg (27.0-33.4) 08/02/19 05:15 MCHC 32.6 g/dL (32.0-36.0) 08/02/19 05:15 RDW 14.9 % (11.5-14.0) H 08/02/19 05:15 Plt Count 433 10^3/uL (150-450) 08/02/19 05:15 Lymph % (Auto) 25.4 % (13-45) 07/30/19 05:46 [place] % (Auto) 13.2 % (3-13) H 07/30/19 05:46 Eos % (Auto) 0.0 % (0-6) 07/30/19 05:46 Baso % (Auto) 0.9 % (0-2) 07/30/19 05:46 Absolute Neuts (auto) 9.3 10^3/uL (1.7-8.2) H 07/30/19 05:46 Absolute Lymphs (auto) 3.9 10^3/uL (0.5-4.7) 07/30/19 05:46 Absolute Monos (auto) 2.0 10^3/uL (0.1-1.4) H 07/30/19 05:46 Absolute Eos (auto) 0.0 10^3/uL (0.0-0.6) 07/30/19 05:46 Absolute Basos (auto) 0.1 10^3/uL (0.0-0.2) 07/30/19 05:46 Seg Neutrophils % 60.5 % (42-78) 07/30/19 05:46 ESR 102 mm/hr (0-20) H 08/02/19 05:15 Sodium 134.7 mmol/L (137-145) L 08/01/19 04:59 Potassium 4.2 mmol/L (3.6-5.0) 08/01/19 04:59 Chloride 99 mmol/L (98-107) 08/01/19 04:59 Carbon Dioxide 27 mmol/L (22-30) 08/01/19 04:59 Anion Gap 9 (5-19) 08/01/19 04:59 BUN 35 mg/dL (7-20) H 08/01/19 04:59 Creatinine 0.83 mg/dL (0.52-1.25) 08/01/19 04:59 Est GFR ( Amer) > 60 (>60) 08/01/19 04:59 Est GFR (MDRD) Non-Af > 60 (>60) 08/01/19 04:59 Glucose 148 mg/dL (75-110) H 08/01/19 04:59 Hemoglobin A1c % 5.6 % (4.7-6.0) 07/29/19 18:36 Uric Acid 8.0 mg/dL (3.5-8.5) 07/29/19 20:54 Calcium 9.0 mg/dL (8.4-10.2) 08/01/19 04:59 Creatine Kinase 133 U/L (55-170) 07/29/19 20:54 C-Reactive Protein 55.6 mg/L (<10.0) H 08/02/19 05:15 Urine Color OSIRIS 07/30/19 02:58 Urine Appearance TURBID 07/30/19 02:58 Urine pH 5.0 (5.0-9.0) 07/30/19 02:58 Ur Specific [place] 1.023 07/30/19 02:58 Urine Protein NEGATIVE mg/dL (NEGATIVE) 07/30/19 02:58 Urine Glucose (UA) NEGATIVE mg/dL (NEGATIVE) 07/30/19 02:58 Urine Ketones NEGATIVE mg/dL (NEGATIVE) 07/30/19 02:58 Urine Blood SMALL (NEGATIVE) H 07/30/19 02:58 Urine Nitrite NEGATIVE (NEGATIVE) 07/30/19 02:58 Urine Bilirubin SMALL (NEGATIVE) H 07/30/19 02:58 Urine Urobilinogen 4.0 mg/dL (<2.0) H 07/30/19 02:58 Ur Leukocyte Esterase NEGATIVE (NEGATIVE) 07/30/19 02:58 Urine WBC (Auto) 9 /HPF 07/30/19 02:58 Urine RBC (Auto) 3 /HPF 07/30/19 02:58 U Hyaline Cast (Auto) 3 /LPF 07/30/19 02:58 Urine Bacteria (Auto) 1+ /HPF 07/30/19 02:58 Squamous Epi Cells Auto 2 /HPF 07/30/19 02:58 Urine Mucus (Auto) OCC /LPF 07/30/19 02:58 Urine Ascorbic Acid NEGATIVE (NEGATIVE) 07/30/19 02:58 Fluid Type SYNOVIAL 07/29/19 20:49 Fluid Type SYNOVIAL 07/29/19 20:49 Fluid Source KNEE 07/29/19 20:49 Fluid Color YELLOW 07/29/19 20:49 Fluid Appearance SLIGHTLY HAZY 07/29/19 20:49 Fluid Viscosity MODERATELY VISCOUS 07/29/19 20:49 Fluid WBC 4250 /uL 07/29/19 20:49 Fluid RBC 4788 /uL 07/29/19 20:49 Fluid Seg Neutrophils 85 % 07/29/19 20:49 Fluid Lymphocytes 7 % 07/29/19 20:49 Fluid Monocytes 8 % 07/29/19 20:49 Fluid Eosinophils 0 % 07/29/19 20:49 Fluid Basophils 0 % 07/29/19 20:49 Fluid Crystals NONE OBSERVED 07/29/19 20:49 Fluid Crystal Source RIGHT KNEE 07/29/19 20:49 Ca Pyrophosphate Cryst NONE OBSERVED 07/29/19 20:49 Synov Monosodium Urate INTRACELLULAR 07/29/19 20:49 Time Trough Drawn 21307/30/19 21:32 Vancomycin Trough 11.5 ug/mL (5.0-20.0) 07/30/19 21:32 Urine Opiates Screen UNCONFIRMED POSITIVE 07/30/19 02:58 Urine Methadone Screen NEGATIVE 07/30/19 02:58 Ur Barbiturates Screen NEGATIVE 07/30/19 02:58 Ur Phencyclidine Scrn NEGATIVE 07/30/19 02:58 Ur Amphetamines Screen NEGATIVE 07/30/19 02:58 U Benzodiazepines Scrn NEGATIVE 07/30/19 02:58 Urine Cocaine Screen NEGATIVE 07/30/19 02:58 U Marijuana (THC) Screen NEGATIVE 07/30/19 02:58 Rheumatoid Factor NEGATIVE (NEGATIVE) 07/31/19 05:04 ZOHAIB (Multiplex) Negative (Negative) 07/31/19 05:04 RPR NONREACTIVE (NONREACTIVE) 07/30/19 05:46 Lyme Screen IgG & IgM <0.91 ISR (0.00-0.90) 07/31/19 05:04 Lyme IgG 18 kDa Band Not Reportable 07/31/19 05:04 Lyme IgG 23 kDa Band Not Reportable 07/31/19 05:04 Lyme IgG 28 kDa Band Not Reportable 07/31/19 05:04 Lyme IgG 30 kDa Band Not Reportable 07/31/19 05:04 Lyme IgG 39 kDa Band Not Reportable 07/31/19 05:04 Lyme IgG 41 kDa Band Not Reportable 07/31/19 05:04 Lyme IgG 45 kDa Band Not Reportable 07/31/19 05:04 Lyme IgG 58 kDa Band Not Reportable 07/31/19 05:04 Lyme IgG 66 kDa Band Not Reportable 07/31/19 05:04 Lyme IgG 93 kDa Band Not Reportable 07/31/19 05:04 Lyme IgG W Blot Interp Not Reportable 07/31/19 05:04 Lyme IgM Quantitation <0.80 index (0.00-0.79) 07/31/19 05:04 Lyme IgM 23 kDa Band Not Reportable 07/31/19 05:04 Lyme IgM 39 kDa Band Not Reportable 07/31/19 05:04 Lyme IgM 41 kDa Band Not Reportable 07/31/19 05:04 Lyme IgM W Blot Interp Not Reportable 07/31/19 05:04 Chlamydia DNA (PCR) NOT DETECTED (NOT DETECT) 07/30/19 02:58 HIV 1&2 Antibody NEGATIVE (NEGATIVE) 07/30/19 05:46 N.gonorrhoeae DNA (PCR) NOT DETECTED (NOT DETECT) 07/30/19 02:58 Plan Plan of Treatment: Patient is discharged to SNF for short-term rehab. He is provided a prolonged prednisone taper. He is advised to follow-up with his primary care provider within 1 week. Strongly encouraged to establish with a vocational psychologist at the earliest available appointment. He is instructed to return to the emergency department as needed for concerning symptoms. Time Spent: Greater than 30 Minutes Stroke Is this a Stroke Patient?: No Acute Heart Failure - Is this a Heart Failure Patient?: No <KINGSTON SIMON - Last Filed: 08/05/19 10:19> Impression - Admit/DC Date/PCP Admission Date/Primary Care Provider: 07/29/19 20:19 CRESCENCIO PIPER MD Discharge Date: 08/05/19 - Discharged on 08/05/2019 History of Present Illiness History of Present Illness: TEVIN GONZALEZ is a 64 year old male Physical Exam Vital Signs: Temp Pulse Resp BP Pulse Ox 98.4 F 77 18 159/85 H 97 08/05/19 07:03 08/05/19 07:03 08/05/19 07:03 08/05/19 07:03 08/05/19 07:03 Intake & Output 08/04/19 08/05/19 08/06/19 06:59 06:59 06:59 Intake Total 1605 2400 Output Total 2825 2600 Balance -1220 -200 Weight 153.3 kg 152.5 kg Results Laboratory Results: WBC 15.4 10^3/uL (4.0-10.5) H 08/02/19 05:15 RBC 3.56 10^6/uL (4.35-5.55) L 08/02/19 05:15 Hgb 11.0 g/dL (13.5-17.0) L 08/02/19 05:15 Hct 33.6 % (37.9-51.0) L 08/02/19 05:15 MCV 94 fl (80-97) 08/02/19 05:15 MCH 30.8 pg (27.0-33.4) 08/02/19 05:15 MCHC 32.6 g/dL (32.0-36.0) 08/02/19 05:15 RDW 14.9 % (11.5-14.0) H 08/02/19 05:15 Plt Count 433 10^3/uL (150-450) 08/02/19 05:15 Lymph % (Auto) 25.4 % (13-45) 07/30/19 05:46 [place] % (Auto) 13.2 % (3-13) H 07/30/19 05:46 Eos % (Auto) 0.0 % (0-6) 07/30/19 05:46 Baso % (Auto) 0.9 % (0-2) 07/30/19 05:46 Absolute Neuts (auto) 9.3 10^3/uL (1.7-8.2) H 07/30/19 05:46 Absolute Lymphs (auto) 3.9 10^3/uL (0.5-4.7) 07/30/19 05:46 Absolute Monos (auto) 2.0 10^3/uL (0.1-1.4) H 07/30/19 05:46 Absolute Eos (auto) 0.0 10^3/uL (0.0-0.6) 07/30/19 05:46 Absolute Basos (auto) 0.1 10^3/uL (0.0-0.2) 07/30/19 05:46 Seg Neutrophils % 60.5 % (42-78) 07/30/19 05:46 ESR 102 mm/hr (0-20) H 08/02/19 05:15 Sodium 134.7 mmol/L (137-145) L 08/01/19 04:59 Potassium 4.2 mmol/L (3.6-5.0) 08/01/19 04:59 Chloride 99 mmol/L (98-107) 08/01/19 04:59 Carbon Dioxide 27 mmol/L (22-30) 08/01/19 04:59 Anion Gap 9 (5-19) 08/01/19 04:59 BUN 35 mg/dL (7-20) H 08/01/19 04:59 Creatinine 0.83 mg/dL (0.52-1.25) 08/01/19 04:59 Est GFR ( Amer) > 60 (>60) 08/01/19 04:59 Est GFR (MDRD) Non-Af > 60 (>60) 08/01/19 04:59 Glucose 148 mg/dL (75-110) H 08/01/19 04:59 Hemoglobin A1c % 5.6 % (4.7-6.0) 07/29/19 18:36 Uric Acid 8.0 mg/dL (3.5-8.5) 07/29/19 20:54 Calcium 9.0 mg/dL (8.4-10.2) 08/01/19 04:59 Creatine Kinase 133 U/L (55-170) 07/29/19 20:54 C-Reactive Protein 55.6 mg/L (<10.0) H 08/02/19 05:15 Urine Color OSIRIS 07/30/19 02:58 Urine Appearance TURBID 07/30/19 02:58 Urine pH 5.0 (5.0-9.0) 07/30/19 02:58 Ur Specific [place] 1.023 07/30/19 02:58 Urine Protein NEGATIVE mg/dL (NEGATIVE) 07/30/19 02:58 Urine Glucose (UA) NEGATIVE mg/dL (NEGATIVE) 07/30/19 02:58 Urine Ketones NEGATIVE mg/dL (NEGATIVE) 07/30/19 02:58 Urine Blood SMALL (NEGATIVE) H 07/30/19 02:58 Urine Nitrite NEGATIVE (NEGATIVE) 07/30/19 02:58 Urine Bilirubin SMALL (NEGATIVE) H 07/30/19 02:58 Urine Urobilinogen 4.0 mg/dL (<2.0) H 07/30/19 02:58 Ur Leukocyte Esterase NEGATIVE (NEGATIVE) 07/30/19 02:58 Urine WBC (Auto) 9 /HPF 07/30/19 02:58 Urine RBC (Auto) 3 /HPF 07/30/19 02:58 U Hyaline Cast (Auto) 3 /LPF 07/30/19 02:58 Urine Bacteria (Auto) 1+ /HPF 07/30/19 02:58 Squamous Epi Cells Auto 2 /HPF 07/30/19 02:58 Urine Mucus (Auto) OCC /LPF 07/30/19 02:58 Urine Ascorbic Acid NEGATIVE (NEGATIVE) 07/30/19 02:58 Fluid Type SYNOVIAL 07/29/19 20:49 Fluid Type SYNOVIAL 07/29/19 20:49 Fluid Source KNEE 07/29/19 20:49 Fluid Color YELLOW 07/29/19 20:49 Fluid Appearance SLIGHTLY HAZY 07/29/19 20:49 Fluid Viscosity MODERATELY VISCOUS 07/29/19 20:49 Fluid WBC 4250 /uL 07/29/19 20:49 Fluid RBC 4788 /uL 07/29/19 20:49 Fluid Seg Neutrophils 85 % 07/29/19 20:49 Fluid Lymphocytes 7 % 07/29/19 20:49 Fluid Monocytes 8 % 07/29/19 20:49 Fluid Eosinophils 0 % 07/29/19 20:49 Fluid Basophils 0 % 07/29/19 20:49 Fluid Crystals NONE OBSERVED 07/29/19 20:49 Fluid Crystal Source RIGHT KNEE 07/29/19 20:49 Ca Pyrophosphate Cryst NONE OBSERVED 07/29/19 20:49 Synov Monosodium Urate INTRACELLULAR 07/29/19 20:49 Time Trough Drawn 213107/30/19 21:32 Vancomycin Trough 11.5 ug/mL (5.0-20.0) 07/30/19 21:32 Urine Opiates Screen UNCONFIRMED POSITIVE 07/30/19 02:58 Urine Methadone Screen NEGATIVE 07/30/19 02:58 Ur Barbiturates Screen NEGATIVE 07/30/19 02:58 Ur Phencyclidine Scrn NEGATIVE 07/30/19 02:58 Ur Amphetamines Screen NEGATIVE 07/30/19 02:58 U Benzodiazepines Scrn NEGATIVE 07/30/19 02:58 Urine Cocaine Screen NEGATIVE 07/30/19 02:58 U Marijuana (THC) Screen NEGATIVE 07/30/19 02:58 Rheumatoid Factor NEGATIVE (NEGATIVE) 07/31/19 05:04 ZOHAIB (Multiplex) Negative (Negative) 07/31/19 05:04 RPR NONREACTIVE (NONREACTIVE) 07/30/19 05:46 Lyme Screen IgG & IgM <0.91 ISR (0.00-0.90) 07/31/19 05:04 Lyme IgG 18 kDa Band Not Reportable 07/31/19 05:04 Lyme IgG 23 kDa Band Not Reportable 07/31/19 05:04 Lyme IgG 28 kDa Band Not Reportable 07/31/19 05:04 Lyme IgG 30 kDa Band Not Reportable 07/31/19 05:04 Lyme IgG 39 kDa Band Not Reportable 07/31/19 05:04 Lyme IgG 41 kDa Band Not Reportable 07/31/19 05:04 Lyme IgG 45 kDa Band Not Reportable 07/31/19 05:04 Lyme IgG 58 kDa Band Not Reportable 07/31/19 05:04 Lyme IgG 66 kDa Band Not Reportable 07/31/19 05:04 Lyme IgG 93 kDa Band Not Reportable 07/31/19 05:04 Lyme IgG W Blot Interp Not Reportable 07/31/19 05:04 Lyme IgM Quantitation <0.80 index (0.00-0.79) 07/31/19 05:04 Lyme IgM 23 kDa Band Not Reportable 07/31/19 05:04 Lyme IgM 39 kDa Band Not Reportable 07/31/19 05:04 Lyme IgM 41 kDa Band Not Reportable 07/31/19 05:04 Lyme IgM W Blot Interp Not Reportable 07/31/19 05:04 Chlamydia DNA (PCR) NOT DETECTED (NOT DETECT) 07/30/19 02:58 HIV 1&2 Antibody NEGATIVE (NEGATIVE) 07/30/19 05:46 N.gonorrhoeae DNA (PCR) NOT DETECTED (NOT DETECT) 07/30/19 02:58
[2019-08-04] MEDS: PHARMACY COMMUNICATION ORDER MC SCH (21:03)
[2019-08-05] MEDS: IBUPROFEN 600 MG TABLET PO SCH ×3 (01:08→18:40)
[2019-08-05] MEDS: HEPARIN SOD (PORCINE) 5,000 UNIT/ML 1 ML VIAL SUBCUT SCH ×3 (05:24→21:46)
[2019-08-05] MEDS: HYDROCHLOROTHIAZIDE 25 MG TABLET PO SCH (09:16)
[2019-08-05] MEDS: LISINOPRIL 10 MG TABLET PO SCH (09:16)
[2019-08-05] MEDS: PANTOPRAZOLE SODIUM 20 MG TABLET.DR PO SCH ×2 (09:17→18:40)
[2019-08-05] MEDS: PREDNISONE 20 MG TABLET PO SCH (09:17)
[2019-08-05] MEDS: DOCUSATE SODIUM 100 MG CAPSULE PO SCH ×2 (09:17→18:38)
[2019-08-05] MEDS: LIDOCAINE 5% (700 MG) TRANSDERMAL ADH..PATCH TP SCH (09:18)
[2019-08-05] MEDS: PHARMACY COMMUNICATION ORDER MC SCH (21:47)
[2019-08-06] MEDS: IBUPROFEN 600 MG TABLET PO SCH ×2 (02:13→08:59)
[2019-08-06] MEDS: HEPARIN SOD (PORCINE) 5,000 UNIT/ML 1 ML VIAL SUBCUT SCH ×2 (05:47→13:07)
[2019-08-06 08:02] VITALS: BP 115/74
[2019-08-06] MEDS: HYDROCHLOROTHIAZIDE 25 MG TABLET PO SCH (08:52)
[2019-08-06] MEDS: LISINOPRIL 10 MG TABLET PO SCH (08:59)
[2019-08-06] MEDS: PREDNISONE 20 MG TABLET PO SCH (08:59)
[2019-08-06] MEDS: DOCUSATE SODIUM 100 MG CAPSULE PO SCH (08:59)
[2019-08-06] MEDS: PANTOPRAZOLE SODIUM 20 MG TABLET.DR PO SCH (08:59)
[2019-08-06] MEDS: LIDOCAINE 5% (700 MG) TRANSDERMAL ADH..PATCH TP SCH (09:00)
== END 2019-08-06 16:03 | DRG 549 ==
LOC: ER 17:27 → EH 20:19 → 4S 07-30 18:51
PROVIDERS: ADMIT Internal Medicine; ATTEND Internal Medicine
PROC: 0S9C3ZX Drainage of Right Knee Joint, Percutaneous Approach, Diagnostic (ICD-10-PCS; principal; 2019-07-29)
DX: M00.9 Pyogenic arthritis, unspecified (principal); Z68.41 Body mass index [BMI] 40.0-44.9, adult; M13.0 Polyarthritis, unspecified; M25.522 Pain in left elbow; M25.572 Pain in left ankle and joints of left foot; M25.561 Pain in right knee; R26.89 Other abnormalities of gait and mobility; I10 Essential (primary) hypertension; E66.01 Morbid (severe) obesity due to excess calories; M10.9 Gout, unspecified
CPT/HCPCS: 36415; 80048; 80202; 80307; 81001; 82550; 83036; 84550; 85025; 85027; 85652; 86038; 86140; 86430; 86592; 86617; 86618; 86701; 87040; 87070; 87075; 87205; 87491; 87591; 89050; 89060; 96374; 99284; J0696; J1170; J1644; J1885; J3370; J3490; J7060; J7120; J7512

== ENCOUNTER 2019-08-12 13:28 | Inpatient (IN) | payer BC ==
[2019-08-12] MEDS ORDERED: DEXTROSE 5%-LACTATED RINGERS 1,000 ML IV ONE (13:54)
[2019-08-12] MEDS ORDERED: LIDOCAINE 2% VISCOUS SOLN 15 ML UDCUP PO ONE ×2 (14:14→15:42)
[2019-08-12] MEDS ORDERED: PANTOPRAZOLE SODIUM 40 MG VIAL IV ONE (14:14)
[2019-08-12] MEDS ORDERED: MAG HYDROX/AL HYDROX/SIMETH SUSP 30 ML UDCUP PO ONE ×2 (14:14→15:42)
[2019-08-12 14:15] LABS: ABSOLUTE LYMPHOCYTES (AUTO) 6.4 10^3/uL (0.5-4.7); ABSOLUTE NEUT (AUTO) 6.6 10^3/uL (1.7-8.2); BASOPHILS % (AUTO) 0.3 % (0-2); EOSINOPHILS % (AUTO) 0.1 % (0-6); HEMATOCRIT 39.2 % (37.9-51.0); HEMOGLOBIN 12.9 g/dL (13.5-17.0); LYMPHOCYTES % (AUTO) 45.6 % (13-45); MEAN CORPUSCULAR HEMOGLOBIN 31.1 pg (27.0-33.4); MEAN CORPUSCULAR HGB CONC 32.8 g/dL (32.0-36.0); MEAN CORPUSCULAR VOLUME 95 fl (80-97); MONOCYTES % (AUTO) 7.3 % (3-13); PLATELET COUNT 253 10^3/uL (150-450); RED BLOOD COUNT 4.14 10^6/uL (4.35-5.55); RED CELL DISTRIBUTION WIDTH 15.3 % (11.5-14.0); SEGMENTED NEUTROPHILS % (AUTO) 46.7 % (42-78); TOTAL CELLS COUNTED % (AUTO) 100 %; WHITE BLOOD COUNT 14.1 10^3/uL (4.0-10.5)
[2019-08-12 14:23] LABS: ALBUMIN 3.7 g/dL (3.5-5.0); ALKALINE PHOSPHATASE 217 U/L (38-126); ASPARTATE AMINO TRANSFERASE 57 U/L (17-59); BILIRUBIN,DIRECT 1.1 mg/dL (0.0-0.4); BILIRUBIN,TOTAL 1.8 mg/dL (0.2-1.3); BLOOD UREA NITROGEN 48 mg/dL (7-20); CALCIUM 9.4 mg/dL (8.4-10.2); CHLORIDE 95 mmol/L (98-107); CREATINE KINASE 59 U/L (55-170); GLUCOSE 239 mg/dL (75-110); POTASSIUM 4.5 mmol/L (3.6-5.0); TOTAL PROTEIN 7.4 g/dL (6.3-8.2)
--- NOTE | 2019-08-12 14:23 | ER Document Report ---
Entered by THERESA PEREZ SCRIBE 08/12/19 2325 Acting as scribe for:RANJEET BEJARANO MD ED General - General Chief Complaint: General Weakness Stated Complaint: GENERAL WEAKNESS Time Seen by Provider: 08/12/19 13:35 Mode of Arrival: Medic Information source: Patient, Emergency Med Personnel Notes: This 64 year old male patient brought in by EMS presents to the ED today with complaints of generalized weakness that started x1 day ago. Patient also reports reproducible chest pain and right knee pain. Patient was seen here on 07/21/19 for joint pain and knee swelling and his uric acid level was 10.8. The patient return the emergency room on 07/25/2019 with similar complaints of pain to the right knee and left foot and ankle, he had an EKG done at that time that showed a normal sinus rhythm. He was discharged back home with the same instructions. The patient was admitted here on 07/29/19 for similar symptoms. While in the emergency room the right knee was tapped and intracellular monosodium urate crystals were detected. Cultures showed no growth. Patient was [facility] on 08/06/19 to [facility]. He reports he was started on Zoloft 2-3 days ago. Since starting Zoloft, he has had a very poor appetite and has not been eating or drinking much. He states he felt okay yesterday but is very weak today. EMS reports a rectal temperature of 100.5, so they administered 975 mg Tylenol. They also reported an Accu-Chek of 78. Patient's rectal temperature is down to 103 at this time. TRAVEL OUTSIDE OF THE [place] IN LAST 30 DAYS: No - Related Data Allergies/Adverse Reactions: tramadol Adverse Reaction (Verified 08/12/19 16:23) Past Medical History - Social History Smoking Status: Former Smoker Frequency of alcohol use: None Drug Abuse: None Family History: Arthritis - Sister has similar symptoms Patient has suicidal ideation: No Patient has homicidal ideation: No - Past Medical History Cardiac Medical History: Reports: Hx Hypertension Musculoskeletal Medical History: Reports Hx Arthritis - Immunizations Immunizations up to date: Yes Hx Diphtheria, Pertussis, Tetanus Vaccination: Yes Review of Systems - Review of Systems Constitutional: See HPI, Fever, Weakness EENT: No symptoms reported Cardiovascular: See HPI, Chest pain - reproducible Respiratory: No symptoms reported Gastrointestinal: No symptoms reported Genitourinary: No symptoms reported Male Genitourinary: No symptoms reported Musculoskeletal: See HPI, Other - Right knee pain Skin: No symptoms reported Hematologic/Lymphatic: No symptoms reported Neurological/Psychological: No symptoms reported -: Yes All other systems reviewed and negative Physical Exam - Vital signs Vitals: Resp 36 H 08/12/19 13:33 Interpretation: Hypotensive, Tachycardic - General General appearance: Alert, Other - BP 97/69 - HEENT Head: Normocephalic, Atraumatic Eyes: Normal Pupils: PERRL - Respiratory Respiratory status: No respiratory distress Chest status: Nontender Breath sounds: Normal Chest palpation: Normal - Cardiovascular Rhythm: Tachycardia - HR 131 bpm Heart sounds: Normal auscultation Murmur: No - Abdominal Inspection: Morbidly Obese Bowel sounds: Normal Tenderness: Tender - Exquisitely tender to palpate the epigastric region reproducing his complaint of chest pain. - Back Back: Normal, Nontender - Extremities General upper extremity: Normal inspection General lower extremity: Other - Right knee has some swelling and is very tender. Both ankles and first MTP joint regions are very tender - Neurological Neuro grossly intact: Yes - Psychological Associated symptoms: Normal affect, Normal mood - Skin Skin Temperature: Cool Skin Moisture: Moist - Clammy Skin Color: Pale Course - Re-evaluation Re-evalutation: 08/12/19 15:42 The patient did get relief of his severe epigastric pain with a GI cocktail. After about an hour or more the discomfort started returning so he was given an additional GI cocktail. 08/12/19 16:12 The patient got 1 L of normal saline from EMS. He was then given 1 L of D5LR due to the low blood sugar. After this fluid had gone in, a blood sugar came back from the lab on blood that was drawn before the D5LR, and it was 239. It would appear the Accu-Chek reported by EMS was inaccurate. He got a liter of LR and remained hypotensive so LR #2 which is the fourth liter of fluids total, was started. The hospitalist was then seeing the patient during this time. Shortly after the circle cutting saw operator Dr. Grewal left the room, the patient seized briefly and then woke up when he was laid down flat. He initially looked a little bewildered and confu sed and then began to regain his senses. His first blood pressure reading following this episode while laying flat was 75 systolic. Levophed drip was ordered and the circle cutting saw operator was made aware of the brief seizure and the blood pressure. 08/12/19 17:13 The venous Doppler shows a small clot that appears old behind the right knee. The lab reports that the d-dimer is likely to be >20. - Vital Signs Vital signs: Temp Pulse Resp BP Pulse Ox 99.3 F 21 H 88/65 L 97 08/12/19 16:56 08/12/19 16:56 08/12/19 16:56 08/12/19 16:56 - Laboratory Result Diagrams: 08/12/19 13:35 08/12/19 13:35 Laboratory results interpreted by me: 08/12/19 08/12/19 08/12/19 13:35 13:35 13:35 WBC 14.1 H RBC 4.14 L Hgb 12.9 L RDW 15.3 H Lymph % (Auto) 45.6 H Absolute Lymphs (auto) 6.4 H VBG pH VBG HCO3 Sodium 135.1 L Chloride 95 L Carbon Dioxide 20 L Anion Gap 20 H BUN 48 H Creatinine 1.85 H Est GFR ( Amer) 45 L Est GFR (MDRD) Non-Af 37 L Glucose 239 H Lactic Acid 7.2 H Magnesium 2.4 H Total Bilirubin 1.8 H Direct Bilirubin 1.1 H Alkaline Phosphatase 217 H Urine Blood Urine Urobilinogen 08/12/19 08/12/19 14:05 14:25 WBC RBC Hgb RDW Lymph % (Auto) Absolute Lymphs (auto) VBG pH 7.29 L VBG HCO3 19.6 L Sodium Chloride Carbon Dioxide Anion Gap BUN Creatinine Est GFR ( Amer) Est GFR (MDRD) Non-Af Glucose Lactic Acid Magnesium Total Bilirubin Direct Bilirubin Alkaline Phosphatase Urine Blood MODERATE H Urine Urobilinogen 4.0 H - Diagnostic Test Radiology reviewed: Image reviewed, Reports reviewed - Chest x-ray shows borderline heart size without pulmonary edema. Bilateral lower extremity venous Doppler shows small clot behind the right knee that looks old with some fluid around it. - EKG Interpretation by Me EKG shows normal: Sinus rhythm, Alpha, Intervals, QRS Complexes, ST-T Waves Rate: Tachycardia - 131 Alpha/QRS: RBBB When compared to previous EKG there are: Changes noted - Consults Dr. Uri Time consulted: 15:25 Consulted provider: will come to ER - Requested I order bilateral venous Doppler studies. Critical Care Note - Critical Care Note Total time excluding time spent on procedures (mins): 55 Discharge - Discharge Clinical Impression: Weakness, Tachycardia, New onset right bundle branch block (RBBB), Dehydration, Lactic acidosis, Elevated troponin I level, Acute kidney injury, Shock, Morbid obesity Hypotension Qualifiers: Hypotension type: unspecified hypotension type Qualified Code(s): I95.9 - Hypotension, unspecified Gout Qualifiers: Gout site: multiple sites Gout etiology: unspecified cause Chronicity: acute Qualified Code(s): M10.9 - Gout, unspecified GERD (gastroesophageal reflux disease) Qualifiers: Esophagitis presence: esophagitis presence not specified Qualified Code(s): K21.9 - Gastro-esophageal reflux disease without esophagitis Condition: Critical Disposition: ADMITTED INPATIENT Unit Admitted: ICU Scribe Attestation: 08/12/19 16:20 I personally performed the services described in the documentation, reviewed and edited the documentation which was dictated to the scribe in my presence, and it accurately records my words and actions. I personally performed the services described in the documentation, reviewed and edited the documentation which was dictated to the scribe in my presence, and it accurately records my words and actions.
[2019-08-12 14:24] LABS: VENOUS BLOOD BASE EXCESS -6.5 mmol/L; VENOUS BLOOD HCO3 19.6 mmol/L (20-32); VENOUS BLOOD PCO2 41.4 mmHg (35-63); VENOUS BLOOD PH 7.29 (7.30-7.42)
[2019-08-12 14:28] LABS: CARBON DIOXIDE 20 mmol/L (22-30)
[2019-08-12 14:29] LABS: ANION GAP 20 (5-19)
[2019-08-12] MEDS ORDERED: RINGERS SOLUTION,LACTATED 1,000 ML IV ONE ×2 (14:41→15:48)
[2019-08-12] MEDS ORDERED: LEVOFLOXACIN 750 MG/D5W RTU 750 MG/150 ML RTUPB IV ONE (14:43)
[2019-08-12 15:00] LABS: APPEARANCE,URINE CLEAR; BILIRUBIN,URINE NEGATIVE (NEGATIVE); GLUCOSE, URINE NEGATIVE (NEGATIVE); KETONES,URINE NEGATIVE (NEGATIVE); LEUKOCYTE ESTERASE,URINE NEGATIVE (NEGATIVE); NITRITE,URINE NEGATIVE (NEGATIVE); PROTEIN,URINE NEGATIVE (NEGATIVE); URINE SPECIFIC GRAVITY 1.014
[2019-08-12 15:06] LABS: COLOR,URINE DARK YELLOW
--- NOTE | 2019-08-12 15:46 | RADIOLOGY REPORT (SQ) ---
EXAM DESCRIPTION: CHEST SINGLE VIEW COMPLETED DATE/TIME: 08/12/2019 3:35 pm REASON FOR STUDY: sepsis, hypotension COMPARISON: [id number] EXAM PARAMETERS: NUMBER OF VIEWS: One view. TECHNIQUE: Single frontal radiographic view of the chest acquired. RADIATION DOSE: NA LIMITATIONS: None. FINDINGS: LUNGS AND PLEURA: No opacities, masses or pneumothorax. No pleural effusion. MEDIASTINUM AND HILAR STRUCTURES: No masses. Contour normal. HEART AND VASCULAR STRUCTURES: The heart size is borderline. There is no pulmonary edema. BONES: No acute findings. HARDWARE: None in the chest. OTHER: No other significant finding. IMPRESSION: Borderline heart size without pulmonary edema. TECHNICAL DOCUMENTATION: JOB ID: [id number] 2010 [employer]- All Rights Reserved Reading location - IP/workstation name: [email or web address]
[2019-08-12] MEDS ORDERED: NOREPINEPHRINE BITARTRATE INJ/PF 4 MG/4 ML SDV IV ONE ×2 (16:16→21:47)
[2019-08-12] MEDS: DEXTROSE 5%-WATER 250 ML with NOREPINEPHRINE BITARTRATE 4 MG IV PRN ×4 (16:25→22:08)
[2019-08-12] MEDS ORDERED: VANCOMYCIN HCL 0 MG in DEXTROSE 5%-WATER 250 ML IV NR (16:30)
[2019-08-12] MEDS ORDERED: ENOXAPARIN SODIUM INJ 150 MG/1 ML DISP.SYRIN SUBCUT ONE (16:53)
--- NOTE | 2019-08-12 16:58 | PDOC CONSULTATION ---
Consultation Consult Date: 08/12/19 Provider Consulted: TOMAS RUST Consult reason:: Tachycardia History of Present Illness Admission Date/PCP: 08/12/19 16:26 SARAH CANDELARIO MD Patient complains of: Weakness History of Present Illness: TEVIN GONZALEZ is a 64 year old male Who was [facility] in [facility] with complaints of feeling weak and not his usual self. He was also found to be febrile. Upon presentation here in the emergency room he was found to be tachycardic with a right bundle branch block on EKG. He required up to 4 L of intravenous fluids for volume resuscitation but continued to be somewhat tachycardic and hypotensive. Levophed has been started. Patient initially had complained of joint pains and epigastric discomfort. The epigastric discomfort specifically has resolved with a GI cocktail. Presently reports no pain or discomfort. Endorses weakness. No prior cardiac illnesses reported. There is recent diagnosis of gout. [facility]. Past Medical History Cardiac Medical History: Reports: Hypertension Denies: Congestive Heart Failure, DVT Pulmonary Medical History: Denies: Chronic Obstructive Pulmonary Disease (COPD) Endocrine Medical History: Reports: Obesity Denies: Diabetes Mellitus Type 1, Diabetes Mellitus Type 2 Renal/ Medical History: Denies: Chronic Kidney Disease Malignancy Medical History: Reports: None Musculoskeltal Medical History: Reports: Arthritis, Gout Social History Smoking Status: Former Smoker Frequency of Alcohol Use: None Drugs: None Family History Family History: Arthritis - Sister has similar symptoms Parental Family History Reviewed: No - Unable to relate family history presently. Patient is weak Children Family History Reviewed: NA Sibling(s) Family History Reviewed.: NA Medication/Allergy Allergies/Adverse Reactions: tramadol Adverse Reaction (Verified 08/12/19 16:23) Review of Systems Constitutional: PRESENT: as per HPI, weakness Eyes: PRESENT: as per HPI Ears: PRESENT: as per HPI Cardiovascular: PRESENT: chest pain Respiratory: PRESENT: as per HPI Gastrointestinal: PRESENT: abdominal pain Musculoskeletal: PRESENT: joint swelling - This is more of epigastric pain and discomfort Physical Exam Vital Signs: Temp Pulse Resp BP Pulse Ox 99.6 F 23 H 74/45 L 90 L 08/12/19 16:21 08/12/19 16:21 08/12/19 16:21 08/12/19 16:21 Intake & Output 08/11/19 08/12/19 08/13/19 06:59 06:59 06:59 Intake Total 3162 Balance 3162 Weight 152.3 kg General appearance: PRESENT: obese Head exam: PRESENT: atraumatic, normocephalic Eye exam: PRESENT: conjunctiva pink, EOMI Mouth exam: PRESENT: dry mucosa Respiratory exam: PRESENT: decreased breath sounds, symmetrical, unlabored Cardiovascular exam: PRESENT: RRR, +S1, +S2, tachycardia Pulses: PRESENT: normal radial pulses GI/Abdominal exam: PRESENT: soft Rectal exam: PRESENT: deferred Neurological exam: PRESENT: alert, awake, oriented to person, oriented to place Psychiatric exam: PRESENT: appropriate affect Skin exam: PRESENT: dry, intact, normal color Results Laboratory Results: 08/12/19 13:35 08/12/19 13:35 08/12/19 08/12/19 08/12/19 13:35 13:35 13:35 WBC 14.1 H RBC 4.14 L Hgb 12.9 L Hct 39.2 MCV 95 MCH 31.1 MCHC 32.8 RDW 15.3 H Plt Count 253 Seg Neutrophils % 46.7 VBG pH VBG pCO2 VBG HCO3 VBG Base Excess Sodium 135.1 L Potassium 4.5 Chloride 95 L Carbon Dioxide 20 L Anion Gap 20 H BUN 48 H Creatinine 1.85 H Est GFR ( Amer) 45 L Glucose 239 H Lactic Acid 7.2 H Calcium 9.4 Magnesium 2.4 H Total Bilirubin 1.8 H AST 57 Alkaline Phosphatase 217 H Total Protein 7.4 Albumin 3.7 Lipase Urine Color Urine Appearance Urine pH Ur Specific Comer Urine Protein Urine Glucose (UA) Urine Ketones Urine Blood Urine Nitrite Ur Leukocyte Esterase Urine WBC (Auto) Urine RBC (Auto) 08/12/19 08/12/19 08/12/19 13:35 14:05 14:25 WBC RBC Hgb Hct MCV MCH MCHC RDW Plt Count Seg Neutrophils % VBG pH 7.29 L VBG pCO2 41.4 VBG HCO3 19.6 L VBG Base Excess -6.5 Sodium Potassium Chloride Carbon Dioxide Anion Gap BUN Creatinine Est GFR ( Amer) Glucose Lactic Acid Calcium Magnesium Total Bilirubin AST Alkaline Phosphatase Total Protein Albumin Lipase 160.5 Urine Color DARK YELLOW Urine Appearance CLEAR Urine pH 5.0 Ur Specific Comer 1.014 Urine Protein NEGATIVE Urine Glucose (UA) NEGATIVE Urine Ketones NEGATIVE Urine Blood MODERATE H Urine Nitrite NEGATIVE Ur Leukocyte Esterase NEGATIVE Urine WBC (Auto) 8 Urine RBC (Auto) 9 08/12/19 08/12/19 13:35 13:35 Creatine Kinase 59 Troponin I 0.257 EKG Comments: Twelve-lead EKG was independently reviewed by me. 08/12/2019 Sinus tachycardia probably with right bundle branch block. Previous EKGs have shown sinus rhythm to sinus tachycardia with no bundle branch aberrancy. Left atrial abnormality was evident. Impressions: Chest X-Ray 08/12/19 14:46 IMPRESSION: Borderline heart size without pulmonary edema. Status: Image reviewed by me - Portable chest x-ray. Not of great quality. Probable vascular congestion in the lower lung caldera. Assessment & Plan - Notes Notes: 1. Right bundle branch block and sinus tachycardia 2. Shock 3. Obesity 4. Gout Recommendations EKG with evidence of tachycardia and right bundle branch aberrancy which could be rate related. Agree with intravascular volume resuscitation. Agree with starting pressors Some of the features of the current presentation suggest ongoing sepsis although white count is not elevated. Agree with close monitoring. No convincing evidence to suggest pulmonary embolism although this is possible given patient's extreme habitus and relative lack of mobility We will obtain transthoracic echocardiogram We will follow
--- NOTE | 2019-08-12 17:02 | CRITICAL CARE ADMISSION REPORT ---
HPI Date:: 08/12/19 Time:: 16:31 Reason for ICU Reason:: Shock HPI: This 64-year-old obese -[place] male reformed smoker is seen in the [facility] emergency department, where he transferred from [facility] with complaints of hypotension. The patient was recently hospitalized on 07/29/2019 with recurrent right knee swelling. During that hospitalization, the patient underwent arthrocentesis, which revealed urate crystals. Although cultures were negative, the patient's chart indicates that he was diagnosed with septic arthritis. Per patient report, he did have antibiotic therapy while hospitalized; however, he was continued only on prednisone therapy upon discharge to [place]. The patient reports heartburn and subcostal/costochondral pain. He continues to have pain in both ankles and in the right knee. The right knee is visibly swollen and mildly warm/hyperemic. He reports feeling febrile, although he is normothermic (with extremities that are cool to the touch). He denies pleuritic pain. He denies dyspnea. Denies cough or sputum production. He denies headache. He denies nausea or vomiting. He denies change in bowel habits or diarrhea. After my clinical encounter, ER staff reported that the patient also had a bout of seizure-like activity, which apparently was self-limited. In the emergency department, the patient was found to be tachycardic and hypotensive. He is currently receiving an IV fluid bolus under the sepsis treatment protocol. 12-lead EKG demonstrated new right bundle branch block. History obtained from:: Patient - Diagnosis/Plan (1) Shock Is this a current diagnosis for this admission?: Yes Plan: IV fluid bolus per sepsis protocol. Norepinephrine as needed for blood pressure support. Check random cortisol. (2) SIRS (systemic inflammatory response syndrome) Is this a current diagnosis for this admission?: Yes Plan: With recent history of E. coli urinary tract infection and recent hospitalizati on, empiric antibiotic coverage with Zosyn/vancomycin for possible septic shock. (3) Elevated troponin I level Is this a current diagnosis for this admission?: Yes Plan: Trend troponins. Ultrasound of the lower extremities to rule out DVT (tachycardia, tachypnea, new right bundle branch block are concerning for acute pulmonary embolism). With acute kidney injury, will obtain lower extremity ultrasound in hopes of avoiding the need for IV dye exposure. (4) Acute kidney injury Is this a current diagnosis for this admission?: Yes Plan: Renal dosing of medications. Avoid nephrotoxic drugs. (5) Microscopic hematuria Is this a current diagnosis for this admission?: Yes (6) GERD (gastroesophageal reflux disease) Qualifiers: Esophagitis presence: esophagitis presence not specified Qualified Code(s): K21.9 - Gastro-esophageal reflux disease without esophagitis Is this a current diagnosis for this admission?: Yes Plan: GI prophylaxis: Protonix (7) Dehydration Is this a current diagnosis for this admission?: Yes (8) Gout Qualifiers: Gout site: multiple sites Gout etiology: unspecified cause Chronicity: acute Qualified Code(s): M10.9 - Gout, unspecified (9) Lactic acidosis Is this a current diagnosis for this admission?: Yes (10) New onset right bundle branch block (RBBB) Is this a current diagnosis for this admission?: Yes (11) Morbid obesity Is this a current diagnosis for this admission?: Yes (12) Polyarthritis Is this a current diagnosis for this admission?: Yes Plan: Solu-Medrol 60 mg IV daily. - . Plan Summary: Admit: To ICU Diagnosis: Shock, unknown etiology IV fluids: Normal saline boluses Testing: ABG and bilateral lower extremity ultrasound (venous Dopplers) Medications: Empiric antibiotics (Zosyn/vancomycin), Solu-Medrol Vasopressors: Norepinephrine as needed Past Medical History Cardiac Medical History: Reports: Hypertension Denies: Congestive Heart Failure, DVT Pulmonary Medical History: Denies: Chronic Obstructive Pulmonary Disease (COPD) Endocrine Medical History: Reports: Obesity Denies: Diabetes Mellitus Type 1, Diabetes Mellitus Type 2 Renal/ Medical History: Denies: Chronic Kidney Disease Malignancy Medical History: Reports: None Musculoskeltal Medical History: Reports: Arthritis, Gout Social/Family History - Social History Occupation: [phone] Smoking Status: Former Smoker Frequency of Alcohol Use: None Drugs: None - Medication/Allergies Home Medications: Acetaminophen [Tylenol 325 mg Tablet] 650 mg PO Q4HP PRN 08/12/19 Docusate Sodium [Colace] 100 mg PO BID 08/12/19 Hydrochlorothiazide [Hydrodiuril 25 mg Tablet] 25 mg PO QAM 08/12/19 Ibuprofen [Motrin 800 mg Tablet] 800 mg PO Q6 08/12/19 Lidocaine [Aspercreme] 1 each TP DAILY 08/12/19 Lidocaine [Aspercreme] 1 each TP QAM 08/12/19 Lisinopril [Prinivil] 20 mg PO QAM 08/12/19 Oxycodone HCl [Oxy-Ir 5 mg Tablet] 5 mg PO Q6HP PRN 08/12/19 Pantoprazole Sodium [Protonix [address] Tablet] 40 mg PO Q6AM 08/12/19 Prednisone [Deltasone 20 mg Tablet] 20 mg PO DAILYP PRN 08/12/19 Allergies/Adverse Reactions: tramadol Adverse Reaction (Verified 08/12/19 16:23) Review of Systems Constitutional: PRESENT: as per HPI, anorexia, fever(s). ABSENT: headache(s), weakness Eyes: ABSENT: visual disturbances Ears: ABSENT: hearing changes Nose, Mouth, and Throat: ABSENT: headache(s), sore throat, vertigo Cardiovascular: PRESENT: chest pain, edema. ABSENT: dyspnea on exertion, orthropnea, palpitations Respiratory: ABSENT: cough, dyspnea, hemoptysis, sputum Gastrointestinal: PRESENT: heartburn. ABSENT: abdominal pain, coffee ground emesis, constipation, diarrhea, hematemesis, hematochezia, nausea, vomiting Genitourinary: ABSENT: dysuria, hematuria Musculoskeletal: PRESENT: joint swelling - R knee Integumentary: ABSENT: diaphoresis, lesions, wounds Neurological: PRESENT: convulsions. ABSENT: focal weakness, frequent falls, memory loss, syncope, weakness Psychiatric: ABSENT: anxiety, depression, hallucinations Physical Exam Vital Signs: Temp Pulse Resp BP Pulse Ox 99.6 F 23 H 74/45 L 90 L 08/12/19 16:21 08/12/19 16:21 08/12/19 16:21 08/12/19 16:21 Intake & Output 08/11/19 08/12/19 08/13/19 06:59 06:59 06:59 Intake Total 1999 Balance 1999 Weight 152.3 kg Weight/Height Weight 152.3 kg Height 1.91 m General appearance: PRESENT: mild distress, obese Head exam: PRESENT: atraumatic, normocephalic Eye exam: PRESENT: conjunctiva pink, EOMI, PERRLA. ABSENT: conjunctival injection, nystagmus, periorbital swelling, scleral icterus Ear exam: PRESENT: normal external ear exam. ABSENT: bleeding, drainage Mouth exam: PRESENT: dry mucosa, neck supple, tongue midline Neck exam: PRESENT: other - short, thick neck. ABSENT: carotid bruit, tenderness, tracheal deviation Respiratory exam: PRESENT: clear to auscultation thomas, symmetrical, tachypnea, unlabored. ABSENT: prolonged expiratory phas, rales, retraction, rhonchi Cardiovascular exam: PRESENT: RRR. ABSENT: gallop, rubs, systolic murmur Pulses: PRESENT: normal dorsalis pedis pul GI/Abdominal exam: PRESENT: normal bowel sounds, soft. ABSENT: distended, guarding, mass, organolmegaly, rebound, tenderness Extremities exam: PRESENT: joint swelling - R knee, tenderness - B feet. ABSENT: calf tenderness, pedal edema Musculoskeletal exam: PRESENT: normal inspection, tenderness - R knee, B feet. ABSENT: deformity Neurological exam: PRESENT: alert, awake, oriented to person, oriented to place, oriented to time, oriented to situation, CN II-XII grossly intact. ABSENT: motor sensory deficit Psychiatric exam: PRESENT: anxious, appropriate affect Skin exam: PRESENT: dry, intact, warm. ABSENT: cyanosis, rash Laboratory/Radiographs Laboratory Results: 08/12/19 13:35 08/12/19 13:35 08/12/19 08/12/19 08/12/19 13:35 13:35 13:35 WBC 14.1 H RBC 4.14 L Hgb 12.9 L Hct 39.2 MCV 95 MCH 31.1 MCHC 32.8 RDW 15.3 H Plt Count 253 Seg Neutrophils % 46.7 VBG pH VBG pCO2 VBG HCO3 VBG Base Excess Sodium 135.1 L Potassium 4.5 Chloride 95 L Carbon Dioxide 20 L Anion Gap 20 H BUN 48 H Creatinine 1.85 H Est GFR ( Amer) 45 L Glucose 239 H Lactic Acid 7.2 H Calcium 9.4 Magnesium 2.4 H Total Bilirubin 1.8 H AST 57 Alkaline Phosphatase 217 H Total Protein 7.4 Albumin 3.7 Lipase Urine Color Urine Appearance Urine pH Ur Specific [place] Urine Protein Urine Glucose (UA) Urine Ketones Urine Blood Urine Nitrite Ur Leukocyte Esterase Urine WBC (Auto) Urine RBC (Auto) 08/12/19 08/12/19 08/12/19 13:35 14:05 14:25 WBC RBC Hgb Hct MCV MCH MCHC RDW Plt Count Seg Neutrophils % VBG pH 7.29 L VBG pCO2 41.4 VBG HCO3 19.6 L VBG Base Excess -6.5 Sodium Potassium Chloride Carbon Dioxide Anion Gap BUN Creatinine Est GFR ( Amer) Glucose Lactic Acid Calcium Magnesium Total Bilirubin AST Alkaline Phosphatase Total Protein Albumin Lipase 160.5 Urine Color DARK YELLOW Urine Appearance CLEAR Urine pH 5.0 Ur Specific [place] 1.014 Urine Protein NEGATIVE Urine Glucose (UA) NEGATIVE Urine Ketones NEGATIVE Urine Blood MODERATE H Urine Nitrite NEGATIVE Ur Leukocyte Esterase NEGATIVE Urine WBC (Auto) 8 Urine RBC (Auto) 9 08/12/19 08/12/19 13:35 13:35 Creatine Kinase 59 Troponin I 0.257 Impressions: Chest X-Ray 08/12/19 14:46 IMPRESSION: Borderline heart size without pulmonary edema. All labs, radiographs, diagnostic studies and EKGs were personally reviewed: Yes In addition, reports of radiographic and diagnostic studies were read: Yes Critical Time Critical Time (minutes): 60 -: The care of a critically ill patient is dynamic. This note represents a static moment in the admission process. Orders and treatments may be given simultaneously and urgently, and time is not applications sales representative of the treatment process. This patient requires Critical Care secondary to life threatening organ or limb dysfunction. Without Critical Care services, the patient is at risk for increased mortality and morbidity.
[2019-08-12] MEDS ORDERED: PIPERACILLIN/TAZOBACTAM 3.375 GM VIAL IV SCH (17:15)
--- NOTE | 2019-08-12 17:17 | EKG REPORT ---
SEVERITY:- ABNORMAL ECG - SINUS OR ECTOPIC ATRIAL TACHYCARDIA RIGHT BUNDLE BRANCH BLOCK AND LEFT ANT. FASCICULAR BLOCK., NEW SINCE 05/25/2020 : Confirmed by: Reji Aguilera MD 12-Aug-2019 17:17:17
[2019-08-12 17:22] LABS: ARTERIAL BLOOD BASE EXCESS -8.5 mmol/L; ARTERIAL BLOOD FIO2 3L; ARTERIAL BLOOD H2CO3 0.87 mmol/L (1.05-1.35); ARTERIAL BLOOD HCO3 15.6 mmol/L (20-24); ARTERIAL BLOOD O2 SATURATION 96.3 % (94-98); ARTERIAL BLOOD PCO2 28.9 mmHg (35-45); ARTERIAL BLOOD PH 7.35 (7.35-7.45); ARTERIAL BLOOD PO2 86.4 mmHg (80-100); ARTERIAL BLOOD TOTAL CO2 16.4 mmol/L (23-27)
[2019-08-12 17:26] LABS: ALKALINE PHOSPHATASE 175 U/L (38-126); ASPARTATE AMINO TRANSFERASE 101 U/L (17-59); BILIRUBIN,DIRECT 1.3 mg/dL (0.0-0.4); BILIRUBIN,TOTAL 1.8 mg/dL (0.2-1.3); BLOOD UREA NITROGEN 48 mg/dL (7-20); CALCIUM 8.6 mg/dL (8.4-10.2); CARBON DIOXIDE 16 mmol/L (22-30); CHLORIDE 98 mmol/L (98-107); GLUCOSE 232 mg/dL (75-110); POTASSIUM 4.4 mmol/L (3.6-5.0); TOTAL PROTEIN 6.5 g/dL (6.3-8.2)
[2019-08-12 17:32] LABS: ANION GAP 21 (5-19)
[2019-08-12 17:44] LABS: INTERNATIONAL RATION (INR) 1.16; PROTHROMBIN TIME 14.8 SEC (11.4-15.4)
[2019-08-12] MEDS ORDERED: METHYLPREDNISOLONE INJ 125 MG/2 ML SDV ONE (18:01)
[2019-08-12] MEDS: METHYLPREDNISOLONE INJ 125 MG/2 ML SDV IV SCH (18:06)
[2019-08-12] MEDS: PIPERACILLIN SODIUM/TAZOBACTAM 3.375 GM in NORMAL SALINE 100 ML IV SCH (18:50)
[2019-08-12] MEDS ORDERED: VANCOMYCIN HCL 1,500 MG in DEXTROSE 5%-WATER 250 ML IV ONE (19:00)
--- NOTE | 2019-08-12 21:47 | XCELERA REPORT ---
[address] [address] Transthoracic Echocardiogram Report Name: TEVIN GONZALEZ Age: 64 yrs Gender: Male : 1955 Patient Status: Inpatient Patient Location: ICU^610^A Study Date: 08/12/2019 08:00 PM History: Shock Height: 75 in Weight: 335 lb BSA: 2.7 m2 Procedure: A complete two-dimensional transthoracic echocardiogram was performed (2D, M-mode, spectral and color flow Doppler). The study was technically difficult with many images being suboptimal in quality. Reason For Study: shock, dvt Previous Evaluation: No previous studies were available. History: Shock Tachycardia RBBB New. Ordering Physician: JOSE LOPEZ Performed By: Peggy Morrison Interpretation Summary RA thrombus likely PE thrombus in transit with evidence of severe RV dilitation and severe RV dysfunction with RV "strain". Results communicated to ICU team at ~21308/12/2019. The study was technically difficult with many images being suboptimal in quality. Left ventricular systolic function is low normal. The Ejection Fraction estimate is 50-55% The right ventricle is severely dilated. The right ventricular systolic function is severely reduced. A thrombus is seen in the right atrium. There is no aortic valve stenosis There is a mild amount of aortic regurgitation There is a mild amount of tricuspid regurgitation There is no pericardial effusion. RA thrombus likely - PE thrombus in transit with evidence of severe RV dilitation and severe RV dysfunction with RV "strain". Results communicated to ICU team at ~21308/12/2019. MMode/2D Measurements & Calculations RVDd: 2.8 cm LVIDd: 4.6 cm FS: 24.7 % Ao root diam: 3.1 cm IVSd: 1.3 cm LVIDs: 3.4 cm EDV(Teich): 95.6 ml Ao root area: 7.4 cm2 LVPWd: 1.1 cm ESV(Teich): 48.7 ml LA dimension: 3.0 cm EF(Teich): 49.1 % Doppler Measurements & Calculations MV E max kate: MV P1/2t max kate: Ao V2 max: AI max kate: 52.1 cm/sec 90.2 cm/sec 126.0 cm/sec 224.8 cm/sec MV A max kate: MV P1/2t: 31.6 msec Ao max P.4 mmHgAI max P.9 cm/sec MVA(P1/2t): 7.0 cm2 20.2 mmHg MV E/A: 0.90 MV dec slope: AI dec slope: 86.9 cm/sec2 835.3 cm/sec2 AI P1/2t: MV dec time: 0.14 sec 757.5 msec LV V1 max PG: PA V2 max: PI end-d kate: TR max kate: 2.1 mmHg 31.5 cm/sec 203.6 cm/sec 290.9 cm/sec LV V1 max: PA max P.40 mmHg TR max P.9 cm/sec 33.8 mmHg AV P1/2t-pr_phl: MV P1/2t-pr_phl: 757.5 msec 31.6 msec Left Ventricle The left ventricle is grossly normal size. There is moderate concentric left ventricular hypertrophy. Left ventricular systolic function is low normal. The Ejection Fraction estimate is 50-55%. LV diastolic function not assessed. Flattened septum is consistent with RV pressure overload. Right Ventricle The right ventricle is severely dilated. The right ventricular systolic function is severely reduced. Atria The right atrium is normal in size. A thrombus is seen in the right atrium. The left atrial size is normal. Mitral Valve The mitral valve is grossly normal. There is a trace amount of mitral regurgitation. Aortic Valve The aortic valve is not well visualized secondary to technical limitations. The aortic valve is sclerotic and shows some degree of functional abnormality. The aortic valve opens well. There is no aortic valve stenosis. There is a mild amount of aortic regurgitation. Tricuspid Valve The tricuspid valve is not well visualized, but is grossly normal. There is a mild amount of tricuspid regurgitation. Right ventricular systolic pressure is estimated to be elevated at 40-50mmHg. Pulmonic Valve The pulmonic valve is not well visualized. There is a mild amount of pulmonic regurgitation. Great Vessels The aortic root is normal size. The inferior vena cava appeared dilated and did not change with respiration (RAP > 20 mmHg). Effusions There is no pericardial effusion. : JOSE LOPEZ Anil
--- NOTE | 2019-08-12 22:06 | RADIOLOGY REPORT (SQ) ---
EXAM DESCRIPTION: RadLex: US EXTREMITY VEINS BILATERAL CLINICAL HISTORY: 64 years Male; BLE PAIN, SWELLING TECHNIQUE: Multiple grayscale sonographic images of both legs were obtained utilizing a high-frequency linear array transducer supplemented with color Doppler, compression and augmentation techniques. COMPARISON: None. FINDINGS: Right leg veins: Common femoral: normal Greater saphenous: normal upper Superficial femoral: normal mid Superficial femoral: normal lower Superficial femoral: normal Popliteal: Noncompressible thrombus Posterior Tibial: normal Left leg veins: Common femoral: normal Greater saphenous: normal upper Superficial femoral: normal mid Superficial femoral: normal lower Superficial femoral: normal Popliteal: normal Posterior Tibial: normal IMPRESSION: 1. Deep venous thrombosis in the right popliteal vein 2. No DVT in the left leg
[2019-08-12 23:27] LABS: INTERNATIONAL RATION (INR) 1.29; PROTHROMBIN TIME 16.2 SEC (11.4-15.4)
[2019-08-12 23:28] LABS: PARTIAL THROMBOPLASTIN TIME 44.6 SEC (23.5-35.8)
[2019-08-12 23:47] LABS: ANION GAP 17 (5-19); BLOOD UREA NITROGEN 54 mg/dL (7-20); CALCIUM 8.7 mg/dL (8.4-10.2); CARBON DIOXIDE 16 mmol/L (22-30); CHLORIDE 98 mmol/L (98-107); GLUCOSE 219 mg/dL (75-110); POTASSIUM 5.1 mmol/L (3.6-5.0)
[2019-08-13] MEDS ORDERED: HEPARIN SOD (PORCINE) 1,000 UNIT/ML 10 ML VIAL ONE (00:35)
[2019-08-13] MEDS: HEPARIN SODIUM,PORCINE/D5W 25,000 UNIT/250 ML RTUINJ IV PRN ×2 (00:43→17:30)
[2019-08-13] MEDS: HEPARIN SOD (PORCINE) 1,000 UNIT/ML 10 ML VIAL IV PRN (00:48)
[2019-08-13] MEDS: PIPERACILLIN SODIUM/TAZOBACTAM 3.375 GM in NORMAL SALINE 100 ML IV SCH ×4 (00:55→17:21)
[2019-08-13] MEDS ORDERED: GLUCAGON,HUMAN RECOMB 1 MG INJ IM PRN (03:35)
[2019-08-13] MEDS ORDERED: DEXTROSE 40% GEL 15 GM TUBE PO PRN ×2 (03:35)
[2019-08-13] MEDS ORDERED: DEXTROSE 50%-WATER 25 GM/50 ML DISP.SYRIN IV PRN ×2 (03:35)
[2019-08-13] MEDS: ACETAMINOPHEN 325 MG TABLET PO PRN (03:57)
[2019-08-13] MEDS: INSULIN REG, HUMAN 100 UNIT/ML 3 ML VIAL (PYX) SUBCUT SCH ×4 (04:10→17:20)
[2019-08-13 06:20] LABS: APPEARANCE,URINE SLIGHTLY-CLOUDY; BILIRUBIN,URINE NEGATIVE (NEGATIVE); COLOR,URINE YELLOW; GLUCOSE, URINE NEGATIVE (NEGATIVE); KETONES,URINE NEGATIVE (NEGATIVE); LEUKOCYTE ESTERASE,URINE NEGATIVE (NEGATIVE); NITRITE,URINE NEGATIVE (NEGATIVE); PROTEIN,URINE NEGATIVE (NEGATIVE); URINE SPECIFIC GRAVITY 1.012
[2019-08-13] MEDS ORDERED: NOREPINEPHRINE BITARTRATE INJ/PF 4 MG/4 ML SDV IV ONE (07:06)
[2019-08-13] MEDS: DEXTROSE 5%-WATER 250 ML with NOREPINEPHRINE BITARTRATE 4 MG IV PRN ×2 (07:09)
--- NOTE | 2019-08-13 07:30 | EKG REPORT ---
SEVERITY:- ABNORMAL ECG - SINUS TACHYCARDIA MULTIPLE ATRIAL PREMATURE COMPLEXES IRBBB AND LPFB PROBABLE ANTEROSEPTAL INFARCT, AGE INDETERM : Confirmed by: Reji Aguilera MD 13-Aug-2019 07:28:50
[2019-08-13 07:56] LABS: ABSOLUTE BASOPHILS # (AUTO) 0.1 10^3/uL (0.0-0.2); ABSOLUTE LYMPHOCYTES (AUTO) 2.7 10^3/uL (0.5-4.7); ABSOLUTE MONOCYTES (AUTO) 0.5 10^3/uL (0.1-1.4); ABSOLUTE NEUT (AUTO) 7.4 10^3/uL (1.7-8.2); BASOPHILS % (AUTO) 0.6 % (0-2); HEMOGLOBIN 12.1 g/dL (13.5-17.0); LYMPHOCYTES % (AUTO) 25.1 % (13-45); MEAN CORPUSCULAR HGB CONC 33.5 g/dL (32.0-36.0); MEAN CORPUSCULAR VOLUME 93 fl (80-97); PLATELET COUNT 197 10^3/uL (150-450); RED BLOOD COUNT 3.89 10^6/uL (4.35-5.55); RED CELL DISTRIBUTION WIDTH 15.3 % (11.5-14.0); SEGMENTED NEUTROPHILS % (AUTO) 69.3 % (42-78); TOTAL CELLS COUNTED % (AUTO) 100 %; WHITE BLOOD COUNT 10.7 10^3/uL (4.0-10.5)
[2019-08-13] MEDS: METHYLPREDNISOLONE INJ 125 MG/2 ML SDV IV SCH (09:24)
[2019-08-13] MEDS: PANTOPRAZOLE SODIUM 40 MG VIAL IV SCH (09:27)
--- NOTE | 2019-08-13 09:27 | PDOC CRITICAL CARE PROG REPORT ---
General Date:: 08/13/19 ICU Day:: 2 Hospital Day:: 2 Resuscitation Status: Full Code Events in the past 12 to 24 Hours:: Presented to emergency department on 08/12/2027 with hypotension, tachycardia, tachypnea and new right bundle branch block with recent hospitalization for acute gouty arthropathy treated with steroids with suboptimal results and requiring transfer to [facility]. The patient has been immobile. He was started on Lovenox 1 mg/kg for presumptive treatment of pulmonary embolism. 2D echocardiographic interrogation was performed in the interim and revealed right atrial thrombus (likely PE thrombus in transit) with severe RV dilatation. Recommendations to continue with anticoagulation or communicated to the overnight coverage team. The patient did require blood pressure support with norepinephrine temporarily. At present, he is hemodynamically stable. SPO2 is 97% on room air. Review of systems relevant to events:: Cardiac, respiratory, musculoskeletal Reason for ICU Addmission:: Shock/massive pulmonary embolism - Medications: Medications reviewed and adjusted accordingly: Yes Vasopressors:: Norepinephrine Physical Exam Vital Signs: Temp Pulse Resp BP Pulse Ox 99.1 F 113 H 22 H 136/103 H 95 08/13/19 08:00 08/13/19 08:00 08/13/19 08:00 08/13/19 08:00 08/13/19 08:00 Intake & Output 08/12/19 08/13/19 08/14/19 06:59 06:59 06:59 Intake Total 4506 152 Output Total 985 175 Balance 3521 -23 Weight 153.7 kg Weight/Height Weight 153.7 kg Height 1.91 m General appearance: PRESENT: no acute distress, well-developed, well-nourished Head exam: PRESENT: atraumatic, normocephalic Eye exam: PRESENT: conjunctiva pink, EOMI, PERRLA. ABSENT: scleral icterus Mouth exam: PRESENT: moist, tongue midline Neck exam: ABSENT: carotid bruit, JVD, lymphadenopathy, thyromegaly Respiratory exam: PRESENT: clear to auscultation thomas. ABSENT: rales, rhonchi, wheezes Cardiovascular exam: PRESENT: RRR, tachycardia. ABSENT: diastolic murmur, rubs, systolic murmur Pulses: PRESENT: normal dorsalis pedis pul Extremities exam: PRESENT: full ROM, joint swelling - Right knee, tenderness - Right knee, both feet. ABSENT: calf tenderness, clubbing, pedal edema Musculoskeletal exam: PRESENT: normal inspection, tenderness. ABSENT: ambulatory, deformity Neurological exam: PRESENT: alert, awake, oriented to person, oriented to place, oriented to time, oriented to situation, CN II-XII grossly intact. ABSENT: motor sensory deficit Psychiatric exam: PRESENT: appropriate affect, normal mood. ABSENT: homicidal ideation, suicidal ideation Skin exam: PRESENT: dry, intact, warm. ABSENT: cyanosis, rash Laboratory/Radiographs Laboratory Results: 08/13/19 07:48 08/12/19 23:12 08/12/19 08/12/19 08/12/19 13:35 13:35 13:35 WBC 14.1 H RBC 4.14 L Hgb 12.9 L Hct 39.2 MCV 95 MCH 31.1 MCHC 32.8 RDW 15.3 H Plt Count 253 Seg Neutrophils % 46.7 Carbonic Acid HCO3/H2CO3 Ratio ABG pH ABG pCO2 ABG pO2 ABG HCO3 ABG O2 Saturation ABG Base Excess VBG pH VBG pCO2 VBG HCO3 VBG Base Excess FiO2 Sodium 135.1 L Potassium 4.5 Chloride 95 L Carbon Dioxide 20 L Anion Gap 20 H BUN 48 H Creatinine 1.85 H Est GFR ( Amer) 45 L Glucose 239 H Lactic Acid 7.2 H Calcium 9.4 Magnesium 2.4 H Total Bilirubin 1.8 H AST 57 Alkaline Phosphatase 217 H Total Protein 7.4 Albumin 3.7 Lipase Urine Color Urine Appearance Urine pH Ur Specific [place] Urine Protein Urine Glucose (UA) Urine Ketones Urine Blood Urine Nitrite Ur Leukocyte Esterase Urine WBC (Auto) Urine RBC (Auto) 08/12/19 08/12/19 08/12/19 13:35 14:05 14:25 WBC RBC Hgb Hct MCV MCH MCHC RDW Plt Count Seg Neutrophils % Carbonic Acid HCO3/H2CO3 Ratio ABG pH ABG pCO2 ABG pO2 ABG HCO3 ABG O2 Saturation ABG Base Excess VBG pH 7.29 L VBG pCO2 41.4 VBG HCO3 19.6 L VBG Base Excess -6.5 FiO2 Sodium Potassium Chloride Carbon Dioxide Anion Gap BUN Creatinine Est GFR ( Amer) Glucose Lactic Acid Calcium Magnesium Total Bilirubin AST Alkaline Phosphatase Total Protein Albumin Lipase 160.5 Urine Color DARK YELLOW Urine Appearance CLEAR Urine pH 5.0 Ur Specific [place] 1.014 Urine Protein NEGATIVE Urine Glucose (UA) NEGATIVE Urine Ketones NEGATIVE Urine Blood MODERATE H Urine Nitrite NEGATIVE Ur Leukocyte Esterase NEGATIVE Urine WBC (Auto) 8 Urine RBC (Auto) 9 08/12/19 08/12/19 08/12/19 16:55 16:58 16:58 WBC RBC Hgb Hct MCV MCH MCHC RDW Plt Count Seg Neutrophils % Carbonic Acid 0.87 L HCO3/H2CO3 Ratio 17:1 ABG pH 7.35 ABG pCO2 28.9 L ABG pO2 86.4 ABG HCO3 15.6 L ABG O2 Saturation 96.3 ABG Base Excess -8.5 VBG pH VBG pCO2 VBG HCO3 VBG Base Excess FiO2 3L Sodium 134.8 L Potassium 4.4 Chloride 98 Carbon Dioxide 16 L Anion Gap 21 H BUN 48 H Creatinine 1.73 H Est GFR ( Amer) 48 L Glucose 232 H Lactic Acid 8.1 H Calcium 8.6 Magnesium Total Bilirubin 1.8 H AST 101 H Alkaline Phosphatase 175 H Total Protein 6.5 Albumin 3.0 L Lipase Urine Color Urine Appearance Urine pH Ur Specific [place] Urine Protein Urine Glucose (UA) Urine Ketones Urine Blood Urine Nitrite Ur Leukocyte Esterase Urine WBC (Auto) Urine RBC (Auto) 08/12/19 08/12/19 08/12/19 17:10 20:02 23:12 WBC RBC Hgb Hct MCV MCH MCHC RDW Plt Count Seg Neutrophils % Carbonic Acid HCO3/H2CO3 Ratio ABG pH ABG pCO2 ABG pO2 ABG HCO3 ABG O2 Saturation ABG Base Excess VBG pH VBG pCO2 VBG HCO3 VBG Base Excess FiO2 Sodium Potassium Chloride Carbon Dioxide Anion Gap BUN Creatinine Est GFR ( Amer) Glucose Lactic Acid Cancelled 3.6 H 1.6 Calcium Magnesium Total Bilirubin AST Alkaline Phosphatase Total Protein Albumin Lipase Urine Color Urine Appearance Urine pH Ur Specific [place] Urine Protein Urine Glucose (UA) Urine Ketones Urine Blood Urine Nitrite Ur Leukocyte Esterase Urine WBC (Auto) Urine RBC (Auto) 08/12/19 08/13/19 08/13/19 23:12 06:01 06:14 WBC Cancelled RBC Cancelled Hgb Cancelled Hct Cancelled MCV Cancelled MCH Cancelled MCHC Cancelled RDW Cancelled Plt Count Cancelled Seg Neutrophils % Cancelled Carbonic Acid HCO3/H2CO3 Ratio ABG pH ABG pCO2 ABG pO2 ABG HCO3 ABG O2 Saturation ABG Base Excess VBG pH VBG pCO2 VBG HCO3 VBG Base Excess FiO2 Sodium 131.1 L Potassium 5.1 H Chloride 98 Carbon Dioxide 16 L Anion Gap 17 BUN 54 H Creatinine 1.61 H Est GFR ( Amer) 53 L Glucose 219 H Lactic Acid Calcium 8.7 Magnesium Total Bilirubin AST Alkaline Phosphatase Total Protein Albumin Lipase Urine Color YELLOW Urine Appearance SLIGHTLY-CLOUDY Urine pH 5.0 Ur Specific [place] 1.012 Urine Protein NEGATIVE Urine Glucose (UA) NEGATIVE Urine Ketones NEGATIVE Urine Blood SMALL H Urine Nitrite NEGATIVE Ur Leukocyte Esterase NEGATIVE Urine WBC (Auto) 3 Urine RBC (Auto) 08/13/19 07:48 WBC 10.7 H RBC 3.89 L Hgb 12.1 L Hct 36.0 L MCV 93 MCH 31.0 MCHC 33.5 RDW 15.3 H Plt Count 197 Seg Neutrophils % 69.3 Carbonic Acid HCO3/H2CO3 Ratio ABG pH ABG pCO2 ABG pO2 ABG HCO3 ABG O2 Saturation ABG Base Excess VBG pH VBG pCO2 VBG HCO3 VBG Base Excess FiO2 Sodium Potassium Chloride Carbon Dioxide Anion Gap BUN Creatinine Est GFR ( Amer) Glucose Lactic Acid Calcium Magnesium Total Bilirubin AST Alkaline Phosphatase Total Protein Albumin Lipase Urine Color Urine Appearance Urine pH Ur Specific [place] Urine Protein Urine Glucose (UA) Urine Ketones Urine Blood Urine Nitrite Ur Leukocyte Esterase Urine WBC (Auto) Urine RBC (Auto) 08/12/19 08/12/19 08/12/19 13:35 13:35 16:58 Creatine Kinase 59 Troponin I 0.257 0.345 08/12/19 08/12/19 08/13/19 20:02 23:12 06:14 Creatine Kinase Troponin I 0.569 1.240 1.450 Impressions: Chest X-Ray 08/12/19 14:46 IMPRESSION: Borderline heart size without pulmonary edema. Venous Doppler Study 08/12/19 15:39 IMPRESSION: 1. Deep venous thrombosis in the right popliteal vein 2. No DVT in the left leg All labs, radiographs, diagnostic studies and EKGs were personally reviewed: Yes In addition, reports of radiographic and diagnostic studies were read: Yes Assessment and Plan - Diagnosis (1) Acute massive pulmonary embolism Is this a current diagnosis for this admission?: Yes Plan: Continue heparin infusion. (2) Shock Is this a current diagnosis for this admission?: Yes Plan: Wean norepinephrine as tolerated. (3) SIRS (systemic inflammatory response syndrome) Is this a current diagnosis for this admission?: Yes (4) Elevated troponin I level Is this a current diagnosis for this admission?: Yes Plan: Troponins are now downtrending. Continue heparin infusion. Beta-blockade/JACOB inhibitor/ARB contraindicated due to hypotension. (5) Acute kidney injury Is this a current diagnosis for this admission?: Yes Plan: Improving. Avoid nephrotoxic drugs. Renal dosing. (6) Microscopic hematuria Is this a current diagnosis for this admission?: Yes (7) GERD (gastroesophageal reflux disease) Qualifiers: Esophagitis presence: esophagitis presence not specified Qualified Code(s): K21.9 - Gastro-esophageal reflux disease without esophagitis Is this a current diagnosis for this admission?: Yes Plan: Continue Protonix (8) Dehydration Is this a current diagnosis for this admission?: Yes (9) Gout Qualifiers: Gout site: multiple sites Gout etiology: unspecified cause Chronicity: acute Qualified Code(s): M10.9 - Gout, unspecified Is this a current diagnosis for this admission?: Yes Plan: Continue Solu-Medrol (10) Lactic acidosis Is this a current diagnosis for this admission?: Yes Plan: Lactate has normalized (1.6) (11) New onset right bundle branch block (RBBB) Is this a current diagnosis for this admission?: Yes (12) Morbid obesity Is this a current diagnosis for this admission?: Yes (13) Polyarthritis Is this a current diagnosis for this admission?: Yes Critical Time Critical Time (minutes): 60 Level of Care: ICU -: 1. The care of a critical patient is a dynamic process. This note is a representative personal service synopsis but static in nature. The timeframe for treatments g iven in order is not necessarily the actual time these treatments may have been done. 2. This patient requires critical care secondary to ongoing requirements for therapy not offered or safe outside the critical care environment. Transfer to a lower level of care will result in altered life or limb morbidity and mortality. 3. Multidisciplinary rounds completed. 4. ABCDE bundle addressed.
[2019-08-13] MEDS: VANCOMYCIN HCL 1,250 MG in DEXTROSE 5%-WATER 250 ML IV SCH ×2 (09:29→22:40)
--- NOTE | 2019-08-13 14:12 | PDOC PROGRESS REPORT ---
Subjective Progress Note for:: 08/13/19 Subjective:: Levophed has been discontinued. Patient was initiated on intravenous heparin infusion. Reason For Visit: SEPSIS Physical Exam Vital Signs: Temp Pulse Resp BP Pulse Ox 98.8 F 109 H 20 108/85 97 08/13/19 12:00 08/13/19 12:00 08/13/19 12:00 08/13/19 12:00 08/13/19 12:00 Intake & Output 08/12/19 08/13/19 08/14/19 06:59 06:59 06:59 Intake Total 4506 424 Output Total 985 575 Balance 3521 -151 Weight 153.7 kg General appearance: PRESENT: no acute distress, cooperative, obese Head exam: PRESENT: atraumatic, normocephalic Eye exam: PRESENT: conjunctiva pink, EOMI Mouth exam: PRESENT: moist Respiratory exam: PRESENT: clear to auscultation thomas, symmetrical, unlabored Cardiovascular exam: PRESENT: +S1, +S2, tachycardia GI/Abdominal exam: PRESENT: soft Rectal exam: PRESENT: deferred Musculoskeletal exam: PRESENT: normal inspection - Patient Neurological exam: PRESENT: alert, awake, oriented to person - Can you let me know, oriented to place, oriented to time, oriented to situation Psychiatric exam: PRESENT: appropriate affect Skin exam: PRESENT: dry, intact, normal color Results Laboratory Results: 08/13/19 07:48 08/12/19 23:12 08/12/19 08/12/19 08/12/19 13:35 13:35 13:35 WBC 14.1 H RBC 4.14 L Hgb 12.9 L Hct 39.2 MCV 95 MCH 31.1 MCHC 32.8 RDW 15.3 H Plt Count 253 Seg Neutrophils % 46.7 Carbonic Acid HCO3/H2CO3 Ratio ABG pH ABG pCO2 ABG pO2 ABG HCO3 ABG O2 Saturation ABG Base Excess VBG pH VBG pCO2 VBG HCO3 VBG Base Excess FiO2 Sodium 135.1 L Potassium 4.5 Chloride 95 L Carbon Dioxide 20 L Anion Gap 20 H BUN 48 H Creatinine 1.85 H Est GFR ( Amer) 45 L Glucose 239 H Lactic Acid 7.2 H Calcium 9.4 Magnesium 2.4 H Total Bilirubin 1.8 H AST 57 Alkaline Phosphatase 217 H Total Protein 7.4 Albumin 3.7 Lipase Urine Color Urine Appearance Urine pH Ur Specific [place] Urine Protein Urine Glucose (UA) Urine Ketones Urine Blood Urine Nitrite Ur Leukocyte Esterase Urine WBC (Auto) Urine RBC (Auto) 08/12/19 08/12/19 08/12/19 13:35 14:05 14:25 WBC RBC Hgb Hct MCV MCH MCHC RDW Plt Count Seg Neutrophils % Carbonic Acid HCO3/H2CO3 Ratio ABG pH ABG pCO2 ABG pO2 ABG HCO3 ABG O2 Saturation ABG Base Excess VBG pH 7.29 L VBG pCO2 41.4 VBG HCO3 19.6 L VBG Base Excess -6.5 FiO2 Sodium Potassium Chloride Carbon Dioxide Anion Gap BUN Creatinine Est GFR ( Amer) Glucose Lactic Acid Calcium Magnesium Total Bilirubin AST Alkaline Phosphatase Total Protein Albumin Lipase 160.5 Urine Color DARK YELLOW Urine Appearance CLEAR Urine pH 5.0 Ur Specific [place] 1.014 Urine Protein NEGATIVE Urine Glucose (UA) NEGATIVE Urine Ketones NEGATIVE Urine Blood MODERATE H Urine Nitrite NEGATIVE Ur Leukocyte Esterase NEGATIVE Urine WBC (Auto) 8 Urine RBC (Auto) 9 08/12/19 08/12/19 08/12/19 16:55 16:58 16:58 WBC RBC Hgb Hct MCV MCH MCHC RDW Plt Count Seg Neutrophils % Carbonic Acid 0.87 L HCO3/H2CO3 Ratio 17:1 ABG pH 7.35 ABG pCO2 28.9 L ABG pO2 86.4 ABG HCO3 15.6 L ABG O2 Saturation 96.3 ABG Base Excess -8.5 VBG pH VBG pCO2 VBG HCO3 VBG Base Excess FiO2 3L Sodium 134.8 L Potassium 4.4 Chloride 98 Carbon Dioxide 16 L Anion Gap 21 H BUN 48 H Creatinine 1.73 H Est GFR ( Amer) 48 L Glucose 232 H Lactic Acid 8.1 H Calcium 8.6 Magnesium Total Bilirubin 1.8 H AST 101 H Alkaline Phosphatase 175 H Total Protein 6.5 Albumin 3.0 L Lipase Urine Color Urine Appearance Urine pH Ur Specific [place] Urine Protein Urine Glucose (UA) Urine Ketones Urine Blood Urine Nitrite Ur Leukocyte Esterase Urine WBC (Auto) Urine RBC (Auto) 08/12/19 08/12/19 08/12/19 17:10 20:02 23:12 WBC RBC Hgb Hct MCV MCH MCHC RDW Plt Count Seg Neutrophils % Carbonic Acid HCO3/H2CO3 Ratio ABG pH ABG pCO2 ABG pO2 ABG HCO3 ABG O2 Saturation ABG Base Excess VBG pH VBG pCO2 VBG HCO3 VBG Base Excess FiO2 Sodium Potassium Chloride Carbon Dioxide Anion Gap BUN Creatinine Est GFR ( Amer) Glucose Lactic Acid Cancelled 3.6 H 1.6 Calcium Magnesium Total Bilirubin AST Alkaline Phosphatase Total Protein Albumin Lipase Urine Color Urine Appearance Urine pH Ur Specific [place] Urine Protein Urine Glucose (UA) Urine Ketones Urine Blood Urine Nitrite Ur Leukocyte Esterase Urine WBC (Auto) Urine RBC (Auto) 08/12/19 08/13/19 08/13/19 23:12 06:01 06:14 WBC Cancelled RBC Cancelled Hgb Cancelled Hct Cancelled MCV Cancelled MCH Cancelled MCHC Cancelled RDW Cancelled Plt Count Cancelled Seg Neutrophils % Cancelled Carbonic Acid HCO3/H2CO3 Ratio ABG pH ABG pCO2 ABG pO2 ABG HCO3 ABG O2 Saturation ABG Base Excess VBG pH VBG pCO2 VBG HCO3 VBG Base Excess FiO2 Sodium 131.1 L Potassium 5.1 H Chloride 98 Carbon Dioxide 16 L Anion Gap 17 BUN 54 H Creatinine 1.61 H Est GFR ( Amer) 53 L Glucose 219 H Lactic Acid Calcium 8.7 Magnesium Total Bilirubin AST Alkaline Phosphatase Total Protein Albumin Lipase Urine Color YELLOW Urine Appearance SLIGHTLY-CLOUDY Urine pH 5.0 Ur Specific [place] 1.012 Urine Protein NEGATIVE Urine Glucose (UA) NEGATIVE Urine Ketones NEGATIVE Urine Blood SMALL H Urine Nitrite NEGATIVE Ur Leukocyte Esterase NEGATIVE Urine WBC (Auto) 3 Urine RBC (Auto) 08/13/19 07:48 WBC 10.7 H RBC 3.89 L Hgb 12.1 L Hct 36.0 L MCV 93 MCH 31.0 MCHC 33.5 RDW 15.3 H Plt Count 197 Seg Neutrophils % 69.3 Carbonic Acid HCO3/H2CO3 Ratio ABG pH ABG pCO2 ABG pO2 ABG HCO3 ABG O2 Saturation ABG Base Excess VBG pH VBG pCO2 VBG HCO3 VBG Base Excess FiO2 Sodium Potassium Chloride Carbon Dioxide Anion Gap BUN Creatinine Est GFR ( Amer) Glucose Lactic Acid Calcium Magnesium Total Bilirubin AST Alkaline Phosphatase Total Protein Albumin Lipase Urine Color Urine Appearance Urine pH Ur Specific [place] Urine Protein Urine Glucose (UA) Urine Ketones Urine Blood Urine Nitrite Ur Leukocyte Esterase Urine WBC (Auto) Urine RBC (Auto) 08/12/19 08/12/19 08/12/19 13:35 13:35 16:58 Creatine Kinase 59 Troponin I 0.257 0.345 08/12/19 08/12/19 08/13/19 20:02 23:12 06:14 Creatine Kinase Troponin I 0.569 1.240 1.450 08/13/19 11:59 Creatine Kinase Troponin I 1.100 EKG Comments: Telemetry shows sinus tachycardia Echocardiogram performed yesterday showed preserved left ventricular ejection fraction. Right ventricle was severely dilated with severe RV dysfunction. There was no pericardial effusion. No significant valve abnormality was seen. There is evidence of RV strain Impressions: Chest X-Ray 08/12/19 14:46 IMPRESSION: Borderline heart size without pulmonary edema. Venous Doppler Study 08/12/19 15:39 IMPRESSION: 1. Deep venous thrombosis in the right popliteal vein 2. No DVT in the left leg Assessment & Plan - Diagnosis (1) New onset right bundle branch block (RBBB) Is this a current diagnosis for this admission?: Yes Plan: New onset right bundle branch block in the setting of tachycardia and pulmonary embolism This potentially attributable to pulmonary embolism. When the heart rate slows down we can watch to see if the aberrancy resolves. (2) Elevated troponin I level Is this a current diagnosis for this admission?: Yes Plan: Probably a reflection of right ventricular strain. Unlikely to be acute coronary syndrome. Continue intravenous heparin infusion per protocol for treatment of PE (3) Acute massive pulmonary embolism Is this a current diagnosis for this admission?: Yes Plan: Significant clot burden evident in the form of a right atrial thrombus on transthoracic images from yesterday. Evidence of RV strain and severe RV dysfunction as well Patient seems to have responded well to intravenous heparin therapy. Continue intravenous heparin. At the present time patient is no longer hemodynamically unstable. Pressors have been turned off. Continue to watch for hemodynamic instability. He will need indefinite systemic anticoagulation with oral agents. Consideration for IVC filter given extreme obesity and limited activity
[2019-08-14] MEDS: PIPERACILLIN SODIUM/TAZOBACTAM 3.375 GM in NORMAL SALINE 100 ML IV SCH ×4 (00:25→17:57)
[2019-08-14] MEDS: INSULIN REG, HUMAN 100 UNIT/ML 3 ML VIAL (PYX) SUBCUT SCH ×4 (00:33→17:56)
[2019-08-14] MEDS: METHYLPREDNISOLONE INJ 125 MG/2 ML SDV IV SCH (09:16)
[2019-08-14] MEDS: VANCOMYCIN HCL 1,250 MG in DEXTROSE 5%-WATER 250 ML IV SCH ×2 (09:16→22:39)
[2019-08-14] MEDS: PANTOPRAZOLE SODIUM 40 MG VIAL IV SCH (09:17)
--- NOTE | 2019-08-14 10:52 | CDI QUERY ---
CDI Query CDI Review: Dear JOHN, To better reflect your patients severity of illness, morbidity, and resource utilization Please LINK any condition to present on admission, if applicable. The terms probable, suspected, likely, possible or still to be ruled out may be used. If you agree, please add to the Progress Notes and Discharge Summary Query Clinical indicators SEPSIS WITH SEPTIC SHOCK? SEPSIS WITH CARDIOGENIC SHOCK? SEPSIS WITH HYPOVOLEMIC SHOCK? SEPSIS RULED OUT? 08/12(1) Shock Is this a current diagnosis for this admission?: Yes Plan: IV fluid bolus per sepsis protocol. *tachycardic and hypotensive SIRS norepinephrine GTT Thank you, JANAK Clinical Documentation Physician Advisors ALAN Rodriguez RN Office [phone]
--- NOTE | 2019-08-14 10:56 | CDI QUERY ---
<JANAK FRANCO - Last Filed: 08/14/19 10:56> CDI Query CDI Review: Dear JOHN, To better reflect your patients severity of illness, morbidity, and resource utilization Please LINK any condition to present on admission, if applicable. The terms probable, suspected, likely, possible or still to be ruled out may be used. If you agree, please add to the Progress Notes and Discharge Summary Query Clinical indicators MORBID OBESITY BMI > 40-45 PT= 42 N/A CLINICALLY INSIGNIFICANT MORBID OBESITY BMI 42 Thank you, JANAK Clinical Documentation Physician Advisors ALAN Rodriguez RN Office [phone] <JOSE LOPEZ - Last Filed: 08/14/19 11:04> CDI Query Agree with Query: Yes
[2019-08-14] MEDS: HEPARIN SODIUM,PORCINE/D5W 25,000 UNIT/250 ML RTUINJ IV PRN (13:34)
[2019-08-14] MEDS ORDERED: COLCHICINE 0.6 MG TABLET PO ONE ×2 (15:56→17:00)
--- NOTE | 2019-08-14 15:58 | PDOC CRITICAL CARE PROG REPORT ---
General Date:: 08/14/19 ICU Day:: 3 Hospital Day:: 3 Resuscitation Status: Full Code Events in the past 12 to 24 Hours:: Doing well. On heparin infusion for treatment of acute pulmonary embolism (massive) with RA thrombus visualized on 2D echocardiogram. Marginal blood pressure but not requiring vasopressors. Presented to emergency department on 08/12/2027 with hypotension, tachycardia, tachypnea and new right bundle branch block with recent hospitalization for acute gouty arthropathy treated with steroids with suboptimal results and requ iring transfer to [facility]. The patient has been immobile. He was started on Lovenox 1 mg/kg for presumptive treatment of pulmonary embolism. 2D echocardiographic interrogation was performed in the interim and revealed right atrial thrombus (likely PE thrombus in transit) with severe RV dilatation. Recommendations to continue with anticoagulation or communicated to the overnight coverage team. The patient did require blood pressure support with norepinephrine temporarily. At present, he is hemodynamically stable. SPO2 is 97% on room air. Reason for ICU Addmission:: Shock/massive pulmonary embolism - Medications: Medications reviewed and adjusted accordingly: Yes Vasopressors:: Norepinephrine Physical Exam Vital Signs: Temp Pulse Resp BP Pulse Ox 98.4 F 97 19 119/91 H 94 08/14/19 13:46 08/14/19 14:00 08/14/19 14:31 08/14/19 14:31 08/14/19 14:31 Intake & Output 08/13/19 08/14/19 08/15/19 06:59 06:59 06:59 Intake Total 4506 1193 242 Output Total 985 2275 625 Balance 1028 -5554 -452 Weight 153.7 kg 152.3 kg Weight/Height Weight 152.3 kg Height 1.91 m General appearance: PRESENT: no acute distress, well-developed, well-nourished Eye exam: PRESENT: conjunctiva pink, EOMI, PERRLA. ABSENT: scleral icterus Mouth exam: PRESENT: moist, tongue midline Neck exam: ABSENT: carotid bruit, JVD, lymphadenopathy, thyromegaly Respiratory exam: PRESENT: clear to auscultation thomas. ABSENT: rales, rhonchi, wheezes Cardiovascular exam: PRESENT: RRR. ABSENT: diastolic murmur, rubs, systolic murmur GI/Abdominal exam: PRESENT: normal bowel sounds, soft. ABSENT: distended, gu arding, mass, rebound, tenderness Extremities exam: PRESENT: full ROM, pedal edema, tenderness - significant improvement, +2 edema. ABSENT: calf tenderness, clubbing Musculoskeletal exam: PRESENT: normal inspection Neurological exam: PRESENT: alert, awake, oriented to person, oriented to place, oriented to time, oriented to situation, CN II-XII grossly intact. ABSENT: motor sensory deficit Psychiatric exam: PRESENT: appropriate affect, normal mood. ABSENT: homicidal ideation, suicidal ideation Skin exam: PRESENT: dry, intact, warm. ABSENT: cyanosis, rash Laboratory/Radiographs Laboratory Results: 08/13/19 07:48 08/12/19 23:12 08/12/19 08/12/19 08/12/19 13:35 13:35 16:58 Creatine Kinase 59 Troponin I 0.257 0.345 08/12/19 08/12/19 08/13/19 20:02 23:12 06:14 Creatine Kinase Troponin I 0.569 1.240 1.450 08/13/19 11:59 Creatine Kinase Troponin I 1.100 Impressions: Chest X-Ray 08/12/19 14:46 IMPRESSION: Borderline heart size without pulmonary edema. Venous Doppler Study 08/12/19 15:39 IMPRESSION: 1. Deep venous thrombosis in the right popliteal vein 2. No DVT in the left leg All labs, radiographs, diagnostic studies and EKGs were personally reviewed: Yes In addition, reports of radiographic and diagnostic studies were read: Yes Assessment and Plan - Diagnosis (1) Acute massive pulmonary embolism Is this a current diagnosis for this admission?: Yes Plan: Continue heparin infusion. (2) Shock Is this a current diagnosis for this admission?: Yes Plan: Wean norepinephrine as tolerated. (3) SIRS (systemic inflammatory response syndrome) Is this a current diagnosis for this admission?: Yes (4) Elevated troponin I level Is this a current diagnosis for this admission?: Yes Plan: Troponins are now downtrending. Continue heparin infusion. Beta-blockade/JACOB inhibitor/ARB contraindicated due to hypotension. (5) Acute kidney injury Is this a current diagnosis for this admission?: Yes Plan: Improving (creatinine 1.85>1.73>1.61). Avoid nephrotoxic drugs. Renal dosing. (6) Microscopic hematuria Is this a current diagnosis for this admission?: Yes (7) GERD (gastroesophageal reflux disease) Qualifiers: Esophagitis presence: esophagitis presence not specified Qualified Code(s): K21.9 - Gastro-esophageal reflux disease without esophagitis Is this a current diagnosis for this admission?: Yes (8) Dehydration Is this a current diagnosis for this admission?: Yes (9) Gout Qualifiers: Gout site: multiple sites Gout etiology: unspecified cause Chronicity: acute Qualified Code(s): M10.9 - Gout, unspecified Is this a current diagnosis for this admission?: Yes Plan: Significant improvement on steroids. Continue Solu-Medrol. Colchicine 1.2 mg p.o. x1 today followed by 0.6 mg additional dose. May need to consider colchicine prophylaxis. (10) Lactic acidosis Is this a current diagnosis for this admission?: Yes (11) New onset right bundle branch block (RBBB) Is this a current diagnosis for this admission?: Yes Plan: Patient's BMI is indeed 42, based on inspection, physical examination and review of data. (12) Morbid obesity Is this a current diagnosis for this admission?: Yes (13) Polyarthritis Is this a current diagnosis for this admission?: Yes Critical Time Critical Time (minutes): 45 Level of Care: ICU -: 1. The care of a critical patient is a dynamic process. This note is a customer assistance representative synopsis but static in nature. The timeframe for treatments given in order is not necessarily the actual time these treatments may have been done. 2. This patient requires critical care secondary to ongoing requirements for th erapy not offered or safe outside the critical care environment. Transfer to a lower level of care will result in altered life or limb morbidity and mortality. 3. Multidisciplinary rounds completed. 4. ABCDE bundle addressed.
--- NOTE | 2019-08-14 16:35 | PDOC PROGRESS REPORT ---
Subjective Progress Note for:: 08/14/19 Subjective:: Levophed has been discontinued. Patient maintained on intravenous heparin infusion. Feels better. Reason For Visit: SEPSIS Physical Exam Vital Signs: Temp Pulse Resp BP Pulse Ox 98.4 F 97 19 119/91 H 94 08/14/19 13:46 08/14/19 14:00 08/14/19 14:31 08/14/19 14:31 08/14/19 14:31 Intake & Output 08/13/19 08/14/19 08/15/19 06:59 06:59 06:59 Intake Total 4506 1193 242 Output Total 985 2275 625 Balance 3397 -6155 -987 Weight 153.7 kg 152.3 kg General appearance: PRESENT: no acute distress, cooperative, morbidly obese, well-developed Head exam: PRESENT: atraumatic, normocephalic Eye exam: PRESENT: conjunctiva pink, EOMI Mouth exam: PRESENT: moist Respiratory exam: PRESENT: decreased breath sounds, symmetrical, unlabored Cardiovascular exam: PRESENT: RRR, +S1, +S2 Pulses: PRESENT: normal radial pulses GI/Abdominal exam: PRESENT: soft Rectal exam: PRESENT: deferred Neurological exam: PRESENT: alert, awake, oriented to person, oriented to place, oriented to time, oriented to situation Psychiatric exam: PRESENT: appropriate affect Skin exam: PRESENT: dry, intact, normal color Results Laboratory Results: 08/13/19 07:48 08/12/19 23:12 08/12/19 08/12/19 08/12/19 13:35 13:35 16:58 Creatine Kinase 59 Troponin I 0.257 0.345 08/12/19 08/12/19 08/13/19 20:02 23:12 06:14 Creatine Kinase Troponin I 0.569 1.240 1.450 08/13/19 11:59 Creatine Kinase Troponin I 1.100 EKG Comments: Tele SR 98 bpm,? RBBB resolved ? Impressions: Chest X-Ray 08/12/19 14:46 IMPRESSION: Borderline heart size without pulmonary edema. Venous Doppler Study 08/12/19 15:39 IMPRESSION: 1. Deep venous thrombosis in the right popliteal vein 2. No DVT in the left leg Assessment & Plan - Diagnosis (1) New onset right bundle branch block (RBBB) Is this a current diagnosis for this admission?: Yes Plan: New onset right bundle branch block in the setting of tachycardia and pulmonary embolism This potentially attributable to pulmonary embolism. Consider repeat EKG. (2) Elevated troponin I level Is this a current diagnosis for this admission?: Yes Plan: Probably a reflection of right ventricular strain. Unlikely to be acute coronary syndrome. Continue intravenous heparin infusion per protocol for treatment of PE (3) Acute massive pulmonary embolism Is this a current diagnosis for this admission?: Yes Plan: Significant clot burden evident in the form of a right atrial thrombus on transthoracic images from yesterday. Evidence of RV strain and severe RV dysfunction as well Patient seems to have responded well to intravenous heparin therapy. Continue intravenous heparin. At the present time patient is no longer hemodynamically unstable. Pressors have been turned off. Continue to watch for hemodynamic instability. He will need indefinite systemic anticoagulation with oral agents. Consideration for IVC filter given extreme obesity and limited activity
[2019-08-14 22:54] LABS: VANCOMYCIN,TROUGH 14.5 ug/mL (5.0-20.0)
[2019-08-15] MEDS: PIPERACILLIN SODIUM/TAZOBACTAM 3.375 GM in NORMAL SALINE 100 ML IV SCH ×4 (00:51→18:27)
[2019-08-15] MEDS: INSULIN REG, HUMAN 100 UNIT/ML 3 ML VIAL (PYX) SUBCUT SCH ×5 (00:51→23:48)
[2019-08-15 03:59] LABS: HEMATOCRIT 32.4 % (37.9-51.0); HEMOGLOBIN 10.6 g/dL (13.5-17.0); MEAN CORPUSCULAR HEMOGLOBIN 30.5 pg (27.0-33.4); MEAN CORPUSCULAR HGB CONC 32.6 g/dL (32.0-36.0); MEAN CORPUSCULAR VOLUME 94 fl (80-97); PLATELET COUNT 203 10^3/uL (150-450); RED BLOOD COUNT 3.46 10^6/uL (4.35-5.55); RED CELL DISTRIBUTION WIDTH 15.3 % (11.5-14.0); WHITE BLOOD COUNT 12.2 10^3/uL (4.0-10.5)
[2019-08-15] MEDS: HEPARIN SOD (PORCINE) 1,000 UNIT/ML 10 ML VIAL IV PRN ×2 (07:08→21:14)
[2019-08-15] MEDS: HEPARIN SODIUM,PORCINE/D5W 25,000 UNIT/250 ML RTUINJ IV PRN (08:59)
[2019-08-15] MEDS: VANCOMYCIN HCL 1,250 MG in DEXTROSE 5%-WATER 250 ML IV SCH ×2 (09:10→23:48)
[2019-08-15] MEDS: PANTOPRAZOLE SODIUM 40 MG VIAL IV SCH (09:11)
[2019-08-15] MEDS: METHYLPREDNISOLONE INJ 125 MG/2 ML SDV IV SCH (09:11)
--- NOTE | 2019-08-15 13:09 | PDOC CRITICAL CARE PROG REPORT ---
General Date:: 08/15/19 ICU Day:: 4 Hospital Day:: 4 Resuscitation Status: Full Code Events in the past 12 to 24 Hours:: Now, hypertensive (back to baseline). Off vasopressors. Dramatic improvement in bilateral lower extremity pain after colchicine yesterday. Doing well. On heparin infusion for treatment of acute pulmonary embolism (massive) with RA thrombus visualized on 2D echocardiogram. Presented to emergency department on 08/12/2027 with hypotension, tachycardia, tachypnea and new right bundle branch block with recent hospitalization for acute gouty arthropathy treated with steroids with suboptimal results and requiring transfer to [facility]. The patient has been immobile. He was started on Lovenox 1 mg/kg for presumptive treatment of pulmonary embolism. 2D echocardiographic interrogation was performed in the interim and revealed right atrial thrombus (likely PE thrombus in transit) with severe RV dilatation. Recommendations to continue with anticoagulation or communicated to the overnight coverage team. The patient did require blood pressure support with norepinephrine temporarily. At present, he is hemodynamically stable. SPO2 is 97% on room air. Review of systems relevant to events:: Cardiac, respiratory, musculoskeletal Reason for ICU Addmission:: Shock/massive pulmonary embolism - Medications: Medications reviewed and adjusted accordingly: Yes Physical Exam Vital Signs: Temp Pulse Resp BP Pulse Ox 97.4 F 97 14 116/90 H 97 08/15/19 06:00 08/14/19 20:00 08/15/19 06:31 08/15/19 06:31 08/15/19 06:31 Intake & Output 08/14/19 08/15/19 08/16/19 06:59 06:59 06:59 Intake Total 1193 2342 212 Output Total 2585 4645 Balance -1082 -133 212 Weight 152.3 kg 149.3 kg Weight/Height Weight 149.3 kg Height 1.91 m General appearance: PRESENT: no acute distress, well-developed, well-nourished Eye exam: PRESENT: conjunctiva pink, EOMI, PERRLA. ABSENT: scleral icterus Mouth exam: PRESENT: moist, tongue midline Neck exam: ABSENT: carotid bruit, JVD, lymphadenopathy, thyromegaly Respiratory exam: PRESENT: clear to auscultation thomas. ABSENT: rales, rhonchi, wheezes Cardiovascular exam: PRESENT: RRR. ABSENT: diastolic murmur, rubs, systolic murmur Pulses: PRESENT: normal dorsalis pedis pul GI/Abdominal exam: PRESENT: normal bowel sounds, soft. ABSENT: distended, guard ing, mass, organolmegaly, rebound, tenderness Extremities exam: PRESENT: full ROM, tenderness - Significantly improved. ABSENT: calf tenderness, clubbing, pedal edema Musculoskeletal exam: PRESENT: normal inspection - Right knee is minimally swollen and no longer erythematous Neurological exam: PRESENT: alert, awake, oriented to person, oriented to place, oriented to time, oriented to situation, CN II-XII grossly intact. ABSENT: motor sensory deficit Psychiatric exam: PRESENT: appropriate affect, normal mood. ABSENT: homicidal ideation, suicidal ideation Skin exam: PRESENT: dry, intact, warm. ABSENT: cyanosis, rash Laboratory/Radiographs Laboratory Results: 08/15/19 03:43 08/12/19 23:12 08/15/19 03:43 WBC 12.2 H RBC 3.46 L Hgb 10.6 L Hct 32.4 L MCV 94 MCH 30.5 MCHC 32.6 RDW 15.3 H Plt Count 203 08/12/19 08/12/19 08/12/19 13:35 13:35 16:58 Creatine Kinase 59 Troponin I 0.257 0.345 08/12/19 08/12/19 08/13/19 20:02 23:12 06:14 Creatine Kinase Troponin I 0.569 1.240 1.450 08/13/19 11:59 Creatine Kinase Troponin I 1.100 Impressions: Chest X-Ray 08/12/19 14:46 IMPRESSION: Borderline heart size without pulmonary edema. Venous Doppler Study 08/12/19 15:39 IMPRESSION: 1. Deep venous thrombosis in the right popliteal vein 2. No DVT in the left leg All labs, radiographs, diagnostic studies and EKGs were personally reviewed: Yes In addition, reports of radiographic and diagnostic studies were read: Yes Assessment and Plan - Diagnosis (1) Acute massive pulmonary embolism Is this a current diagnosis for this admission?: Yes Plan: Continue heparin infusion. Start Eliquis. (2) Elevated troponin I level Is this a current diagnosis for this admission?: Yes (3) Acute kidney injury Is this a current diagnosis for this admission?: Yes Plan: Check BMP. Avoid nephrotoxic drugs. Renal dosing. (4) Microscopic hematuria Is this a current diagnosis for this admission?: Yes (5) GERD (gastroesophageal reflux disease) Qualifiers: Esophagitis presence: esophagitis presence not specified Qualified Code(s): K21.9 - Gastro-esophageal reflux disease without esophagitis Is this a current diagnosis for this admission?: Yes (6) Dehydration Is this a current diagnosis for this admission?: Yes (7) Gout Qualifiers: Gout site: multiple sites Gout etiology: unspecified cause Chronicity: acute Qualified Code(s): M10.9 - Gout, unspecified Is this a current diagnosis for this admission?: Yes Plan: Significant improvement on steroids. Decrease Solu-Medrol. Colchicine 1.2 mg followed by 0.6 mg administered on 08/14/2019. (8) New onset right bundle branch block (RBBB) Is this a current diagnosis for this admission?: Yes Plan: Repeat 12-lead EKG prior to discharge (9) Lactic acidosis Is this a current diagnosis for this admission?: Yes (10) Polyarthritis Is this a current diagnosis for this admission?: Yes Plan: Decrease steroids. PT OT eval and treat. (11) Morbid obesity Is this a current diagnosis for this admission?: Yes Plan: Patient's BMI is indeed 42, based on inspection, physical examination and review of data. (12) Shock Is this a current diagnosis for this admission?: Yes Plan: Resolved (13) SIRS (systemic inflammatory response syndrome) Is this a current diagnosis for this admission?: Yes Plan: Resolved Plan Summary: Okay to transfer to telemetry Critical Time Critical Time (minutes): 45 Level of Care: ICU -: 1. The care of a critical patient is a dynamic process. This note is a site safety representative synopsis but static in nature. The timeframe for treatments given in order is not necessarily the actual time these treatments may have been done. 2. This patient requires critical care secondary to ongoing requirements for therapy not offered or safe outside the critical care environment. Transfer to a lower level of care will result in altered life or limb morbidity and mortal ity. 3. Multidisciplinary rounds completed. 4. ABCDE bundle addressed.
[2019-08-15 13:38] LABS: INTERNATIONAL RATION (INR) 1.16; PROTHROMBIN TIME 14.9 SEC (11.4-15.4)
[2019-08-15 14:06] LABS: PARTIAL THROMBOPLASTIN TIME 140.3 SEC (23.5-35.8)
[2019-08-15] MEDS ORDERED: OXYCODONE HCL IR 5 MG TABLET PO PRN (15:50)
--- NOTE | 2019-08-15 16:16 | PDOC PROGRESS REPORT ---
Subjective Progress Note for:: 08/15/19 Subjective:: Examined. Resting in bed. No complaints. No longer tachycardic. Has not been out of bed. Reason For Visit: SEPSIS Physical Exam Vital Signs: Temp Pulse Resp BP Pulse Ox 98.0 F 95 20 127/88 H 94 08/15/19 12:00 08/15/19 12:00 08/15/19 12:00 08/15/19 12:00 08/15/19 12:00 Intake & Output 08/14/19 08/15/19 08/16/19 06:59 06:59 06:59 Intake Total 1193 2692 337 Output Total 2275 6755 320 Balance -1082 217 17 Weight 152.3 kg 149.3 kg General appearance: PRESENT: no acute distress, morbidly obese, well-developed Head exam: PRESENT: atraumatic, normocephalic Eye exam: PRESENT: conjunctiva pink, EOMI Mouth exam: PRESENT: moist Respiratory exam: PRESENT: symmetrical, unlabored Cardiovascular exam: PRESENT: RRR, +S1, +S2 Pulses: PRESENT: normal radial pulses GI/Abdominal exam: PRESENT: soft Rectal exam: PRESENT: deferred Neurological exam: PRESENT: alert, awake, oriented to person, oriented to place, oriented to time, oriented to situation Psychiatric exam: PRESENT: appropriate affect Skin exam: PRESENT: dry, intact, normal color Results Laboratory Results: 08/15/19 03:43 08/12/19 23:12 08/15/19 03:43 WBC 12.2 H RBC 3.46 L Hgb 10.6 L Hct 32.4 L MCV 94 MCH 30.5 MCHC 32.6 RDW 15.3 H Plt Count 203 08/12/19 08/12/19 08/12/19 13:35 13:35 16:58 Creatine Kinase 59 Troponin I 0.257 0.345 08/12/19 08/12/19 08/13/19 20:02 23:12 06:14 Creatine Kinase Troponin I 0.569 1.240 1.450 08/13/19 11:59 Creatine Kinase Troponin I 1.100 Impressions: Chest X-Ray 08/12/19 14:46 IMPRESSION: Borderline heart size without pulmonary edema. Venous Doppler Study 08/12/19 15:39 IMPRESSION: 1. Deep venous thrombosis in the right popliteal vein 2. No DVT in the left leg Assessment & Plan - Diagnosis (1) New onset right bundle branch block (RBBB) Is this a current diagnosis for this admission?: Yes Plan: New onset right bundle branch block in the setting of tachycardia and pulmonary embolism This potentially attributable to pulmonary embolism. Telemetry presently does not show bundle branch aberration. (2) Elevated troponin I level Is this a current diagnosis for this admission?: Yes Plan: Probably a reflection of right ventricular strain. Unlikely to be acute coronary syndrome. Continue intravenous heparin infusion per protocol for treatment of PE (3) Acute massive pulmonary embolism Is this a current diagnosis for this admission?: Yes Plan: Significant clot burden evident in the form of a right atrial thrombus on transthoracic images from yesterday. Evidence of RV strain and severe RV dysfunction as well Patient seems to have responded well to intravenous heparin therapy. Continue intravenous heparin. At the present time patient is no longer hemodynamically unstable. Pressors have been turned off. Continue to watch for hemodynamic instability. He will need indefinite systemic anticoagulation with oral agents. Consideration for IVC filter given extreme obesity and limited activity
[2019-08-15] MEDS: COLCHICINE 0.6 MG TABLET PO SCH (18:02)
[2019-08-15] MEDS: DOCUSATE SODIUM 100 MG CAPSULE PO SCH (18:02)
[2019-08-15] MEDS: APIXABAN 5 MG TABLET PO SCH (22:39)
[2019-08-15] MEDS ORDERED: VANCOMYCIN HCL INJ 1000 MG VIAL ONE (23:14)
[2019-08-16] MEDS: PIPERACILLIN SODIUM/TAZOBACTAM 3.375 GM in NORMAL SALINE 100 ML IV SCH ×5 (01:23→23:07)
[2019-08-16] MEDS: INSULIN REG, HUMAN 100 UNIT/ML 3 ML VIAL (PYX) SUBCUT SCH ×4 (07:29→23:07)
[2019-08-16] MEDS ORDERED: METHYLPREDNISOLONE INJ 40 MG/1 ML SDV IV SCH (10:00)
[2019-08-16] MEDS ORDERED: METHYLPREDNISOLONE INJ 125 MG/2 ML SDV IV SCH (10:00)
[2019-08-16] MEDS: PANTOPRAZOLE SODIUM 40 MG VIAL IV SCH (11:33)
[2019-08-16] MEDS: COLCHICINE 0.6 MG TABLET PO SCH (11:33)
[2019-08-16] MEDS: APIXABAN 5 MG TABLET PO SCH ×2 (11:33→22:22)
[2019-08-16] MEDS: VANCOMYCIN HCL 1,250 MG in DEXTROSE 5%-WATER 250 ML IV SCH ×2 (11:34→22:21)
--- NOTE | 2019-08-16 11:40 | PDOC PROGRESS REPORT ---
Subjective Progress Note for:: 08/16/19 Subjective:: This 64-year-old obese -Serbian male reformed smoker is seen in the [facility] emergency department, where he transferred from [facility] with complaints of hypotension. The patient was recently hospitalized on 07/29/2019 with recurrent right knee swelling. During that hospitalization, the patient underwent arthrocentesis, which revealed urate crystals. Although cultures were negative, the patient's chart indicates that he was diagnosed with septic arthritis. Per patient report, he did have antibiotic therapy while hospitalized; however, he was continued only on prednisone therapy upon discharge to [place]. The patient reports heartburn and subcostal/costochondral pain. He continues to have pain in both ankles and in the right knee. The right knee is visibly swollen and mildly warm/hyperemic. He reports feeling febrile, although he is normothermic (with extremities that are cool to the touch). He denies pleuritic pain. He denies dyspnea. Denies cough or sputum production. He denies headache. He denies nausea or vomiting. He denies change in bowel habits or diarrhea. After my clinical encounter, ER staff reported that the patient also had a bout of seizure-like activity, which apparently was self-limited. In the emergency department, the patient was found to be tachycardic and hypotensive. He is currently receiving an IV fluid bolus under the sepsis treatment protocol. 12-lead EKG demonstrated new right bundle branch block. 06/15/2020. No acute events overnight. Patient resting in bed in apparent distress, stating that her bilateral lower extremity swelling and pain are improving however they still feel very stiff, denies any fever, chills, nausea, vomiting, diarrhea, constipation or any urinary symptoms, on room air in no apparent distress, denies any shortness of breath or chest pain. Reason For Visit: SEPSIS Physical Exam Vital Signs: Temp Pulse Resp BP Pulse Ox 98.3 F 82 18 124/87 H 95 08/16/19 08:00 08/16/19 08:00 08/16/19 08:00 08/16/19 08:00 08/16/19 08:00 Intake & Output 08/15/19 08/16/19 08/17/19 06:59 06:59 06:59 Intake Total 6832 1127 Output Total 1792 1220 Balance 217 -93 Weight 149.3 kg 149.3 kg General appearance: PRESENT: morbidly obese Head exam: PRESENT: atraumatic, normocephalic Respiratory exam: PRESENT: clear to auscultation thomas. ABSENT: rales, rhonchi, wheezes Cardiovascular exam: PRESENT: RRR. ABSENT: diastolic murmur, rubs, systolic murmur Pulses: PRESENT: normal dorsalis pedis pul Musculoskeletal exam: PRESENT: tenderness - Bilateral ankle mild swelling and tenderness. Neurological exam: PRESENT: alert, awake, oriented to person, oriented to place, oriented to time, oriented to situation, CN II-XII grossly intact. ABSENT: motor sensory deficit Results Laboratory Results: 08/15/19 03:43 08/12/19 23:12 08/12/19 08/12/19 08/12/19 13:35 13:35 16:58 Creatine Kinase 59 Troponin I 0.257 0.345 08/12/19 08/12/19 08/13/19 20:02 23:12 06:14 Creatine Kinase Troponin I 0.569 1.240 1.450 08/13/19 11:59 Creatine Kinase Troponin I 1.100 Impressions: Chest X-Ray 08/12/19 14:46 IMPRESSION: Borderline heart size without pulmonary edema. Venous Doppler Study 08/12/19 15:39 IMPRESSION: 1. Deep venous thrombosis in the right popliteal vein 2. No DVT in the left leg Assessment and Plan - Diagnosis (1) Acute massive pulmonary embolism Is this a current diagnosis for this admission?: Yes Plan: Initially patient was in ICU, was started on heparin drip and subsequently transitioned to p.o. Eliquis. Acute massive PE finding is based on based on 2D echo finding on 05/2020. Right a thrombus likely PE thrombus in transit with evidence of severe right ventricul ar dilation and severe right ventricle dysfunction with RV strain.Continue heparin infusion. No CTA on this hospitalization. SPO2 WNL on RA. Pulse WNL. Continue Eliquis. (2) GERD (gastroesophageal reflux disease) Qualifiers: Esophagitis presence: esophagitis presence not specified Qualified Code(s): K21.9 - Gastro-esophageal reflux disease without esophagitis Is this a current diagnosis for this admission?: Yes Plan: Continue Protonix (3) Gout Qualifiers: Gout site: multiple sites Gout etiology: unspecified cause Chronicity: chronic Qualified Code(s): M1A.09X0 - Idiopathic chronic gout, multiple sites, without tophus (tophi) Is this a current diagnosis for this admission?: Yes Plan: Significant improvement on steroids and colchicine. Based on arthrocentesis fluid finding on previous admission patient had monosodium urate crystals in the joint fluid. Was a started on loading dose of colchicine. Currently on colchicine 0.6 mg p.o. twice daily and IV Solu-Medrol. Continue colchicine 0.6 mg p.o. twice daily. Switch IV Solu-Medrol to p.o. prednisone. Patient counseled on decreasing EtOH intake and avoiding high uric acid containing foods. (4) SIRS (systemic inflammatory response syndrome) Is this a current diagnosis for this admission?: Yes Plan: Resolved (5) Morbid obesity Is this a current diagnosis for this admission?: Yes Plan: BMI 41.1. TSH WNL. Likely component of EDGAR and chronic steroid use for underlying gout. Diet and lifestyle modification recommended. Patient may benefit from outpatient nocturnal polysomnography (6) New onset right bundle branch block (RBBB) Is this a current diagnosis for this admission?: Yes Plan: Likely due to right heart strain due to massive PE. Repeat EKG before discharge. [employer] rn sane consulted. Recommendations noted. (7) Polyarthritis Is this a current diagnosis for this admission?: Yes Plan: Improving. Likely due to gout arthritis complicated by osteoarthritis. Continue PT. Weight reduction may help and long-term. (8) Shock Is this a current diagnosis for this admission?: Yes Plan: Resolved (9) Acute kidney injury Is this a current diagnosis for this admission?: Yes Plan: Prerenal. Most likely due to shock. Creatinine improving. Not back to baseline. Electrolytes WNL. Euvolemic. Avoid nephrotoxic meds. BMP tomorrow.
[2019-08-16] MEDS: DOCUSATE SODIUM 100 MG CAPSULE PO SCH ×2 (12:18→18:12)
[2019-08-16] MEDS: ACETAMINOPHEN 325 MG TABLET PO PRN (16:05)
[2019-08-17 06:17] LABS: ANION GAP 10 (5-19); BLOOD UREA NITROGEN 35 mg/dL (7-20); CARBON DIOXIDE 25 mmol/L (22-30); CHLORIDE 106 mmol/L (98-107); GLUCOSE 140 mg/dL (75-110); POTASSIUM 4.3 mmol/L (3.6-5.0)
[2019-08-17] MEDS: INSULIN REG, HUMAN 100 UNIT/ML 3 ML VIAL (PYX) SUBCUT SCH ×3 (06:17→17:48)
[2019-08-17] MEDS: PIPERACILLIN SODIUM/TAZOBACTAM 3.375 GM in NORMAL SALINE 100 ML IV SCH ×3 (06:24→17:48)
[2019-08-17] MEDS: DOCUSATE SODIUM 100 MG CAPSULE PO SCH ×2 (10:24→17:43)
[2019-08-17] MEDS: APIXABAN 5 MG TABLET PO SCH ×2 (10:26→21:12)
[2019-08-17] MEDS: COLCHICINE 0.6 MG TABLET PO SCH (10:26)
[2019-08-17] MEDS: VANCOMYCIN HCL 1,250 MG in DEXTROSE 5%-WATER 250 ML IV SCH ×2 (10:26→21:11)
[2019-08-17] MEDS: PANTOPRAZOLE SODIUM 40 MG VIAL IV SCH (10:26)
[2019-08-17] MEDS: PREDNISONE 20 MG TABLET PO SCH (10:27)
--- NOTE | 2019-08-17 11:31 | PDOC PROGRESS REPORT ---
Subjective Progress Note for:: 08/17/19 Subjective:: This 64-year-old obese -[place] male reformed smoker is seen in the [facility] emergency department, where he transferred from [facility] with complaints of hypotension. The patient was recently hospitalized on 07/29/2019 with recurrent right knee swelling. During that hospitalization, the patient underwent arthrocentesis, which revealed urate crystals. Although cultures were negative, the patient's chart indicates that he was diagnosed with septic arthritis. Per patient report, he did have antibiotic therapy while hospitalized; however, he was continued only on prednisone therapy upon discharge to [place]. The patient reports heartburn and subcostal/costochondral pain. He continues to have pain in both ankles and in the right knee. The right knee is visibly swollen and mildly warm/hyperemic. He reports feeling febrile, although he is normothermic (with extremities that are cool to the touch). He denies pleuritic pain. He denies dyspnea. Denies cough or sputum production. He denies headache. He denies nausea or vomiting. He denies change in bowel habits or diarrhea. After my clinical encounter, ER staff reported that the patient also had a bout of seizure-like activity, which apparently was self-limited. In the emergency department, the patient was found to be tachycardic and hypotensive. He is currently receiving an IV fluid bolus under the sepsis treatment protocol. 12-lead EKG demonstrated new right bundle branch block. 06/15/2020. No acute events overnight. Patient resting in bed in apparent distress, stating that her bilateral lower extremity swelling and pain are improving however they still feel very stiff, denies any fever, chills, nausea, vomiting, diarrhea, constipation or any urinary symptoms, on room air in no apparent distress, denies any shortness of breath or chest pain. 08/17/2019. No acute events overnight. Patient is sedated yesterday he got some physical therapy but was not able to ambulate much as he feels too weak, currently resting in bed no apparent distress, denies any fever, chills, nausea, vomiting, diarrhea, constipation or any urinary symptoms. Bilateral lower extremity pain is improving. Reason For Visit: SEPSIS Physical Exam Vital Signs: Temp Pulse Resp BP Pulse Ox 97.5 F 83 16 141/91 H 96 08/17/19 11:01 08/17/19 11:01 08/17/19 11:01 08/17/19 11:01 08/17/19 11:01 Intake & Output 08/16/19 08/17/19 08/18/19 06:59 06:59 06:59 Intake Total 1477 1640 Output Total 1220 1600 Balance 257 40 Weight 149.3 kg 148.7 kg General appearance: PRESENT: morbidly obese Head exam: PRESENT: atraumatic, normocephalic Neck exam: ABSENT: carotid bruit, JVD, lymphadenopathy, thyromegaly Cardiovascular exam: PRESENT: RRR. ABSENT: diastolic murmur, rubs, systolic murmur Pulses: PRESENT: normal dorsalis pedis pul GI/Abdominal exam: PRESENT: normal bowel sounds, soft. ABSENT: distended, guarding, mass, organolmegaly, rebound, tenderness Musculoskeletal exam: PRESENT: tenderness - Bilateral ankle mild swelling. No tenderness erythema or sign of infection neurovascularly intact. Neurological exam: PRESENT: alert, awake, oriented to person, oriented to place, oriented to time, oriented to situation, CN II-XII grossly intact. ABSENT: motor sensory deficit Results Laboratory Results: 08/15/19 03:43 08/17/19 05:23 08/16/19 08/17/19 13:45 05:23 Sodium 141.0 Potassium 4.3 Chloride 106 Carbon Dioxide 25 Anion Gap 10 BUN 35 H Creatinine 1.26 H 1.05 Est GFR ( Amer) > 60 > 60 Glucose 140 H Calcium 9.0 08/12/19 08/12/19 08/12/19 13:35 13:35 16:58 Creatine Kinase 59 Troponin I 0.257 0.345 08/12/19 08/12/19 08/13/19 20:02 23:12 06:14 Creatine Kinase Troponin I 0.569 1.240 1.450 08/13/19 11:59 Creatine Kinase Troponin I 1.100 Impressions: Chest X-Ray 08/12/19 14:46 IMPRESSION: Borderline heart size without pulmonary edema. Venous Doppler Study 08/12/19 15:39 IMPRESSION: 1. Deep venous thrombosis in the right popliteal vein 2. No DVT in the left leg Assessment and Plan - Diagnosis (1) Acute massive pulmonary embolism Is this a current diagnosis for this admission?: Yes Plan: Initially patient was in ICU, was started on heparin drip and subsequently transitioned to p.o. Eliquis. Acute massive PE finding is based on based on 2D echo finding on 05/2020. Right a thrombus likely PE thrombus in transit with evidence of severe right ventricular dilation and severe right ventricle dysfunction with RV strain.Continue heparin infusion. No CTA on this hospitalization. SPO2 WNL on RA. Pulse WNL. Continue Eliquis. (2) GERD (gastroesophageal reflux disease) Qualifiers: Esophagitis presence: esophagitis presence not specified Qualified Code(s): K21.9 - Gastro-esophageal reflux disease without esophagitis Is this a current diagnosis for this admission?: Yes Plan: Continue Protonix (3) Gout Qualifiers: Gout site: multiple sites Gout etiology: unspecified cause Chronicity: chronic Qualified Code(s): M1A.09X0 - Idiopathic chronic gout, multiple sites, without tophus (tophi) Is this a current diagnosis for this admission?: Yes Plan: Significant improvement on steroids and colchicine. Based on arthrocentesis fluid finding on previous admission patient had monosodium urate crystals in the joint fluid. Was a started on loading dose of colchicine. Currently on colchicine 0.6 mg p.o. twice daily and IV Solu-Medrol. Continue colchicine 0.6 mg p.o. twice daily. Switch IV Solu-Medrol to p.o. prednisone. Patient counseled on decreasing EtOH intake and avoiding high uric acid containing foods. (4) SIRS (systemic inflammatory response syndrome) Is this a current diagnosis for this admission?: Yes Plan: Resolved (5) Morbid obesity Is this a current diagnosis for this admission?: Yes Plan: BMI 41.1. TSH WNL. Likely component of EDGAR and chronic steroid use for underlying gout. Diet and lifestyle modification recommended. Patient may benefit from outpatient nocturnal polysomnography (6) New onset right bundle branch block (RBBB) Is this a current diagnosis for this admission?: Yes Plan: Likely due to right heart strain due to massive PE. Repeat EKG before discharge. (7) Polyarthritis Is this a current diagnosis for this admission?: Yes Plan: Improving. Likely due to gout arthritis complicated by osteoarthritis. Continue PT. Weight reduction may help and long-term. (8) Shock Is this a current diagnosis for this admission?: Yes Plan: Resolved. Cardiogenic shock, likley due to massive PE with right heart strain and intracardiac thombos. (9) Acute kidney injury Is this a current diagnosis for this admission?: Yes Plan: Prerenal. Most likely due to shock. Creatinine improving. Not back to baseline. Electrolytes WNL. Euvolemic. Avoid nephrotoxic meds. BMP tomorrow. (10) Physical deconditioning Is this a current diagnosis for this admission?: Yes Plan: Continue PT OT. Patient discharged to SNF in last admission. Patient would like to be transitioned to home if possible.
[2019-08-17] MEDS: ACETAMINOPHEN 325 MG TABLET PO PRN (17:56)
[2019-08-18] MEDS: PIPERACILLIN SODIUM/TAZOBACTAM 3.375 GM in NORMAL SALINE 100 ML IV SCH ×2 (00:14→05:13)
[2019-08-18] MEDS: INSULIN REG, HUMAN 100 UNIT/ML 3 ML VIAL (PYX) SUBCUT SCH ×4 (00:26→18:22)
[2019-08-18] MEDS: ACETAMINOPHEN 325 MG TABLET PO PRN (05:20)
[2019-08-18 07:14] LABS: HEMATOCRIT 33.6 % (37.9-51.0); MEAN CORPUSCULAR HEMOGLOBIN 30.9 pg (27.0-33.4); MEAN CORPUSCULAR HGB CONC 32.8 g/dL (32.0-36.0); MEAN CORPUSCULAR VOLUME 94 fl (80-97); PLATELET COUNT 213 10^3/uL (150-450); RED BLOOD COUNT 3.57 10^6/uL (4.35-5.55); RED CELL DISTRIBUTION WIDTH 15.3 % (11.5-14.0); WHITE BLOOD COUNT 10.4 10^3/uL (4.0-10.5)
[2019-08-18] MEDS: PREDNISONE 20 MG TABLET PO SCH (09:15)
[2019-08-18] MEDS: PANTOPRAZOLE SODIUM 40 MG VIAL IV SCH (09:15)
[2019-08-18] MEDS: APIXABAN 5 MG TABLET PO SCH ×2 (09:15→21:31)
[2019-08-18] MEDS: COLCHICINE 0.6 MG TABLET PO SCH (09:16)
[2019-08-18] MEDS: DOCUSATE SODIUM 100 MG CAPSULE PO SCH ×2 (09:19→17:08)
--- NOTE | 2019-08-18 14:19 | PDOC TRANSFER SUMMARY ---
<SAMEER AGUIRRE R - Last Filed: 08/18/19 14:19> General Admission Date/PCP: 08/12/19 16:26 SARAH CANDELARIO MD Resuscitation Status: Full Code - Transfer Diagnosis (1) Acute massive pulmonary embolism Is this a current diagnosis for this admission?: Yes (2) GERD (gastroesophageal reflux disease) Is this a current diagnosis for this admission?: Yes (3) Gout Is this a current diagnosis for this admission?: Yes (4) SIRS (systemic inflammatory response syndrome) Is this a current diagnosis for this admission?: Yes (5) Morbid obesity Is this a current diagnosis for this admission?: Yes (6) New onset right bundle branch block (RBBB) Is this a current diagnosis for this admission?: Yes (7) Polyarthritis Is this a current diagnosis for this admission?: Yes (8) Shock Is this a current diagnosis for this admission?: Yes (9) Acute kidney injury Is this a current diagnosis for this admission?: Yes (10) Physical deconditioning Is this a current diagnosis for this admission?: Yes - Transfer Medications Home Medications: Acetaminophen [Tylenol 325 mg Tablet] 650 mg PO Q4HP PRN 08/12/19 Docusate Sodium [Colace] 100 mg PO BID 08/12/19 Hydrochlorothiazide [Hydrodiuril 25 mg Tablet] 25 mg PO QAM 08/12/19 Lidocaine [Aspercreme Lidocaine] 1 each TP DAILY 08/12/19 Lidocaine [Aspercreme Lidocaine] 1 each TP QAM 08/12/19 Lisinopril [Prinivil] 20 mg PO QAM 08/12/19 Oxycodone HCl [Oxy-Ir 5 mg Tablet] 5 mg PO Q6HP PRN 08/12/19 Pantoprazole Sodium [Protonix [address] Tablet] 40 mg PO Q6AM 08/12/19 Transfer Medications: Current Medications Acetaminophen (Tylenol 325 Mg Tablet) 650 mg PO Q4HP PRN PRN Reason: FOR PAIN Stop: 09/12/19 03:12 Last Admin: 08/18/19 05:20 Dose: 650 mg Documented by: Apixaban (Eliquis 5 Mg Tablet) 10 mg PO Q12 [facility] Stop: 08/22/19 23:59 Last Admin: 08/18/19 09:15 Dose: 10 mg Documented by: Apixaban (Eliquis 5 Mg Tablet) 5 mg PO Q12 [facility] Stop: 09/22/19 09:59 Colchicine (Colcrys 0.6 Mg Tablet) 0.6 mg PO DAILY [facility] Stop: 09/14/19 16:59 Last Admin: 08/18/19 09:16 Dose: 0.6 mg Documented by: Dextrose (Dextrose Inj 50% Syringe (25 Gm/50 Ml)) 12.5 gm IV PRN PRN; Protocol PRN Reason: FOR BG 50-69 IN ALERT PATIENT Stop: 09/12/19 03:34 Dextrose (Dextrose Inj 50% Syringe (25 Gm/50 Ml)) 25 gm IV PRN PRN; Protocol PRN Reason: PER PROTOCOL Stop: 09/12/19 03:34 Docusate Sodium (Colace 100 Mg Capsule) 100 mg PO BID [facility] Stop: 09/14/19 17:59 Last Admin: 08/18/19 09:19 Dose: Not Given Documented by: Glucagon (Glucagen Inj 1 Mg Vial) 1 mg IM PRN PRN; Protocol PRN Reason: Evaluate for BG < 70 Stop: 09/12/19 03:34 Glucose (Glutose 40% Gel 15 Gm Tube) 15 gm PO PRN PRN; Protocol PRN Reason: FOR BG 50-69 IN ALERT PATIENT Stop: 09/12/19 03:34 Glucose (Glutose 40% Gel 15 Gm Tube) 30 gm PO PRN PRN; Protocol PRN Reason: FOR BG < 50 IN ALERT PATIENT Stop: 09/12/19 03:34 Insulin Human Regular (Humulin R (Pyxis) Insulin 100 Unit/Ml 3ml) 0 - 12 unit SUBCUT Q6 [facility]; Protocol Stop: 09/12/19 03:44 Last Admin: 08/18/19 12:15 Dose: Not Given Documented by: Oxycodone HCl (Oxy-Ir 5 Mg Tablet) 5 mg PO Q6HP PRN PRN Reason: FOR PAIN Stop: 08/22/19 15:49 Last Admin: 08/17/19 06:32 Dose: 5 mg Documented by: Pantoprazole Sodium (Protonix Iv Inj 40 Mg Vial) 40 mg IV DAILY [facility] Stop: 08/20/19 09:59 Last Admin: 08/18/19 09:15 Dose: 40 mg Documented by: Prednisone (Deltasone 20 Mg Tablet) 40 mg PO DAILY [facility] Stop: 09/16/19 09:59 Last Admin: 08/18/19 09:15 Dose: 40 mg Documented by: Sodium Chloride (Saline Flush 2.5 Ml Monoject Prefil Syrin) 2.5 ml IV Q8 [facility] Stop: 09/11/19 16:29 Last Admin: 08/18/19 13:27 Dose: Not Given Documented by: - Allergies Allergies/Adverse Reactions: tramadol Adverse Reaction (Verified 08/12/19 16:23) Hospital Course Hospital Course: This 64-year-old obese -[place] male reformed smoker is seen in the [facility] emergency department, where he transferred from [facility] with complaints of hypotension. The patient was recently hospitalized on 07/29/2019 with recurrent right knee swelling. During that hospitalization, the patient underwent arthrocentesis, which revealed urate crystals. Although cultures were negative, the patient's chart indicates that he was diagnosed with septic arthritis. Per patient report, he did have antibiotic therapy while hospitalized; however, he was continued only on prednisone therapy upon discharge to [place]. The patient reports heartburn and subcostal/costochondral pain. He continues to have pain in both ankles and in the right knee. The right knee is visibly swollen and mildly warm/hyperemic. He reports feeling febrile, although he is normothermic (with extremities that are cool to the touch). He denies pleuritic pain. He denies dyspnea. Denies cough or sputum production. He denies headache. He denies nausea or vomiting. He denies change in bowel habits or diarrhea. After my clinical encounter, ER staff reported that the patient also had a bout of seizure-like activity, which apparently was self-limited. In the emergency department, the patient was found to be tachycardic and hypotensive. He is currently receiving an IV fluid bolus under the sepsis treatment protocol. 12-lead EKG demonstrated new right bundle branch block. (1) Acute massive pulmonary embolism Initially patient was in ICU, was started on heparin drip and subsequently transitioned to p.o. Eliquis. Acute massive PE finding is based on based on 2D echo finding on 05/2020. Right a thrombus likely PE thrombus in transit with evidence of severe right ventricular dilation and severe right ventricle dysfunction with RV strain.Continue heparin infusion. No CTA on this hospitalization. Currently patient has SPO2 of WNL on RA. Pulses WNL. Patient is to continue Eliquis lifelong and will need to follow-up with IR or vascular surgeon for possible IVC placement. Patient is started on Eliquis 08/15/2019. Needs to take Eliquis 10 mg p.o. twice daily for 10 days then transition to 5 mg p.o. twice daily after that. (2) GERD (gastroesophageal reflux disease) Continue Protonix. Outpatient PCP and gastroenterology follow-up. (3) Gout Significant improvement on steroids and colchicine. Based on arthrocentesis fluid finding on previous admission patient had monosodium urate crystals in the joint fluid. Was a started on loading dose of colchicine. Currently on colchicine 0.6 mg p.o. twice daily and IV Solu-Medrol. Continue colchicine 6 mg p.o. twice daily. Continue tapered dose of prednisone. Currently 20 mg p.o. daily to be tapered down by 5 mg/week. Patient counseled on decreasing EtOH intake and avoiding high uric acid containing foods. (4) SIRS (systemic inflammatory response syndrome) Resolved Cultures negative. Was a started on empiric broad-spectrum IV antibiotics initially. (5) Morbid obesity BMI 41.1. TSH WNL. Likely component of EDGAR and chronic steroid use for underlying gout. Diet and lifestyle modification recommended. Patient may benefit from outpatient nocturnal polysomnography (6) New onset right bundle branch block (RBBB) Likely due to right heart strain due to massive PE. 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 (7) Polyarthritis Improving. Likely due to gout arthritis complicated by osteoarthritis. Continue PT. Weight reduction may help and long-term. Plan of care as per problem #3. (8) Shock Resolved. Cardiogenic shock, likley due to massive PE with right heart strain and intracardiac thombos. Normotensive. Euvolemic. SPO2 WNL. WBC WNL. (9) Acute kidney injury Resolved. Prerenal. Most likely due to cardiogenic shock. Electrolytes WNL. Euvolemic. NSAID. Avoid nephrotoxic meds. Outpatient PCP and nephrology follow-up. (10) Physical deconditioning Continue PT OT. Patient discharged to SNF in last admission. Patient very determined to continue his physical therapy and be independent soon and transition back. Physical Exam Vital Signs: Temp Pulse Resp BP Pulse Ox 98.4 F 71 16 147/98 H 96 08/18/19 07:57 08/18/19 07:57 08/18/19 07:57 08/18/19 07:57 08/18/19 07:57 Intake & Output 08/17/19 08/18/19 08/19/19 06:59 06:59 06:59 Intake Total 1740 1524 Output Total 1600 675 Balance 140 849 Weight 148.7 kg 151.7 kg General appearance: PRESENT: morbidly obese Head exam: PRESENT: atraumatic, normocephalic Respiratory exam: PRESENT: clear to auscultation thomas. ABSENT: rales, rhonchi, wheezes Cardiovascular exam: PRESENT: RRR. ABSENT: diastolic murmur, rubs, systolic murmur GI/Abdominal exam: PRESENT: normal bowel sounds, soft. ABSENT: distended, guarding, mass, organolmegaly, rebound, tenderness Neurological exam: PRESENT: alert, awake, oriented to person, oriented to place, oriented to time, oriented to situation, CN II-XII grossly intact, other - Generalized bilateral lower extremity weakness.. ABSENT: motor sensory deficit Results Laboratory Results: 08/18/19 06:22 08/17/19 05:23 08/18/19 06:22 WBC 10.4 RBC 3.57 L Hgb 11.0 L Hct 33.6 L MCV 94 MCH 30.9 MCHC 32.8 RDW 15.3 H Plt Count 213 08/12/19 14:56 Blood Blood Culture - Final NO GROWTH IN 5 DAYS 08/12/19 13:35 Blood Blood Culture - Final NO GROWTH IN 5 DAYS 08/12/19 08/12/19 08/12/19 13:35 13:35 16:58 Creatine Kinase 59 Troponin I 0.257 0.345 08/12/19 08/12/19 08/13/19 20:02 23:12 06:14 Creatine Kinase Troponin I 0.569 1.240 1.450 08/13/19 11:59 Creatine Kinase Troponin I 1.100 Impressions: Chest X-Ray 08/12/19 14:46 IMPRESSION: Borderline heart size without pulmonary edema. Venous Doppler Study 08/12/19 15:39 IMPRESSION: 1. Deep venous thrombosis in the right popliteal vein 2. No DVT in the left leg <ROSI OLMOS - Last Filed: 08/19/19 09:52> General Admission Date/PCP: 08/12/19 16:26 SARAH CANDELARIO MD Transfer Date: 08/19/19 Resuscitation Status: Full Code - Transfer Diagnosis (1) Acute kidney injury Is this a current diagnosis for this admission?: Yes (2) Acute massive pulmonary embolism Is this a current diagnosis for this admission?: Yes (3) Dehydration Is this a current diagnosis for this admission?: Yes (4) Elevated troponin I level Is this a current diagnosis for this admission?: Yes (5) GERD (gastroesophageal reflux disease) Is this a current diagnosis for this admission?: Yes (6) Gout Is this a current diagnosis for this admission?: Yes (7) Lactic acidosis Is this a current diagnosis for this admission?: Yes (8) Morbid obesity Is this a current diagnosis for this admission?: Yes (9) Hypertension Is this a current diagnosis for this admission?: Yes (10) Morbid obesity Is this a current diagnosis for this admission?: Yes (11) Polyarthritis Is this a current diagnosis for this admission?: Yes - Transfer Medications Transfer Medications: Current Medications Acetaminophen (Tylenol 325 Mg Tablet) 650 mg PO Q4HP PRN PRN Reason: FOR PAIN Stop: 09/12/19 03:12 Last Admin: 08/19/19 04:47 Dose: 650 mg Documented by: Apixaban (Eliquis 5 Mg Tablet) 10 mg PO Q12 [facility] Stop: 08/22/19 23:59 Last Admin: 08/19/19 09:18 Dose: 10 mg Documented by: Apixaban (Eliquis 5 Mg Tablet) 5 mg PO Q12 [facility] Stop: 09/22/19 09:59 Colchicine (Colcrys 0.6 Mg Tablet) 0.6 mg PO DAILY [facility] Stop: 09/14/19 16:59 Last Admin: 08/19/19 09:18 Dose: 0.6 mg Documented by: Dextrose (Dextrose Inj 50% Syringe (25 Gm/50 Ml)) 12.5 gm IV PRN PRN; Protocol PRN Reason: FOR BG 50-69 IN ALERT PATIENT Stop: 09/12/19 03:34 Dextrose (Dextrose Inj 50% Syringe (25 Gm/50 Ml)) 25 gm IV PRN PRN; Protocol PRN Reason: PER PROTOCOL Stop: 09/12/19 03:34 Docusate Sodium (Colace 100 Mg Capsule) 100 mg PO BID [facility] Stop: 09/14/19 17:59 Last Admin: 08/19/19 09:18 Dose: Not Given Documented by: Glucagon (Glucagen Inj 1 Mg Vial) 1 mg IM PRN PRN; Protocol PRN Reason: Evaluate for BG < 70 Stop: 09/12/19 03:34 Glucose (Glutose 40% Gel 15 Gm Tube) 15 gm PO PRN PRN; Protocol PRN Reason: FOR BG 50-69 IN ALERT PATIENT Stop: 09/12/19 03:34 Glucose (Glutose 40% Gel 15 Gm Tube) 30 gm PO PRN PRN; Protocol PRN Reason: FOR BG < 50 IN ALERT PATIENT Stop: 09/12/19 03:34 Insulin Human Regular (Humulin R (Pyxis) Insulin 100 Unit/Ml 3ml) 0 - 12 unit SUBCUT Q6 [facility]; Protocol Stop: 09/12/19 03:44 Last Admin: 08/19/19 06:13 Dose: Not Given Documented by: Lisinopril (Prinivil 5 Mg Tablet) 5 mg PO DAILY [facility] Stop: 09/18/19 09:59 Last Admin: 08/19/19 09:18 Dose: 5 mg Documented by: Oxycodone HCl (Oxy-Ir 5 Mg Tablet) 5 mg PO Q6HP PRN PRN Reason: FOR PAIN Stop: 08/22/19 15:49 Last Admin: 08/17/19 06:32 Dose: 5 mg Documented by: Pantoprazole Sodium (Protonix Iv Inj 40 Mg Vial) 40 mg IV DAILY [facility] Stop: 08/20/19 09:59 Last Admin: 08/19/19 09:18 Dose: 40 mg Documented by: Prednisone (Deltasone 20 Mg Tablet) 40 mg PO DAILY [facility] Stop: 09/16/19 09:59 Last Admin: 08/19/19 09:18 Dose: 40 mg Documented by: Sodium Chloride (Saline Flush 2.5 Ml Monoject Prefil Syrin) 2.5 ml IV Q8 [facility] Stop: 09/11/19 16:29 Last Admin: 08/19/19 05:37 Dose: Not Given Documented by: - Diet/Activity Discharge Diet: Cardiac Discharge Activity: Energy Conservation, Slowly Increase Activity, Supervised Activity Physical Exam Vital Signs: Temp Pulse Resp BP Pulse Ox 97.4 F 89 18 129/86 H 94 08/19/19 07:51 08/19/19 07:51 08/19/19 07:51 08/19/19 07:51 08/19/19 07:51 Intake & Output 08/18/19 08/19/19 08/20/19 06:59 06:59 06:59 Intake Total 1524 380 Output Total 675 1095 Balance 849 -715 Weight 151.7 kg 150.2 kg Results Laboratory Results: 08/18/19 06:22 08/17/19 05:23 08/18/19 18:50 Urine Color YELLOW Urine Appearance CLEAR Urine pH 6.0 Ur Specific [place] 1.014 Urine Protein NEGATIVE Urine Glucose (UA) NEGATIVE Urine Ketones NEGATIVE Urine Blood NEGATIVE Urine Nitrite NEGATIVE Ur Leukocyte Esterase NEGATIVE Urine WBC (Auto) 5 Urine RBC (Auto) 0 08/12/19 08/12/19 08/12/19 13:35 13:35 16:58 Creatine Kinase 59 Troponin I 0.257 0.345 08/12/19 08/12/19 08/13/19 20:02 23:12 06:14 Creatine Kinase Troponin I 0.569 1.240 1.450 08/13/19 11:59 Creatine Kinase Troponin I 1.100 Impressions: Chest X-Ray 08/12/19 14:46 IMPRESSION: Borderline heart size without pulmonary edema. Venous Doppler Study 08/12/19 15:39 IMPRESSION: 1. Deep venous thrombosis in the right popliteal vein 2. No DVT in the left leg Plan Time Spent: Greater than 30 Minutes
[2019-08-18] MEDS ORDERED: HYDRALAZINE HCL INJ/PF 20 MG/1 ML SDV IV ONE (16:15)
--- NOTE | 2019-08-18 17:50 | PDOC PROGRESS REPORT ---
Subjective Progress Note for:: 08/18/19 Subjective:: This 64-year-old obese -[place] male reformed smoker is seen in the [facility] emergency department, where he transferred from [facility] with complaints of hypotension. The patient was recently hospitalized on 07/29/2019 with recurrent right knee swelling. During that hospitalization, the patient underwent arthrocentesis, which revealed urate crystals. Although cultures were negative, the patient's chart indicates that he was diagnosed with septic arthritis. Per patient report, he did have antibiotic therapy while hospitalized; however, he was continued only on prednisone therapy upon discharge to [place]. The patient reports heartburn and subcostal/costochondral pain. He continues to have pain in both ankles and in the right knee. The right knee is visibly swollen and mildly warm/hyperemic. He reports feeling febrile, although he is normothermic (with extremities that are cool to the touch). He denies pleuritic pain. He denies dyspnea. Denies cough or sputum production. He denies headache. He denies nausea or vomiting. He denies change in bowel habits or diarrhea. After my clinical encounter, ER staff reported that the patient also had a bout of seizure-like activity, which apparently was self-limited. In the emergency department, the patient was found to be tachycardic and hypotensive. He is currently receiving an IV fluid bolus under the sepsis treatment protocol. 12-lead EKG demonstrated new right bundle branch block. 08/16/2019. No acute events overnight. Patient resting in bed in apparent distress, stating that her bilateral lower extremity swelling and pain are improving however they still feel very stiff, denies any fever, chills, nausea, vomiting, diarrhea, constipation or any urinary symptoms, on room air in no apparent distress, denies any shortness of breath or chest pain. 08/17/2019. No acute events overnight. Patient is sedated yesterday he got some physical therapy but was not able to ambulate much as he feels too weak, currently resting in bed no apparent distress, denies any fever, chills, nausea, vomiting, diarrhea, constipation or any urinary symptoms. Bilateral lower extremity pain is improving. 08/18/2019. No acute events overnight. Received physical therapy 3. Bilateral lower extremity pain improving. Patient still complaining of generalized pain especially in lower extremities. Also possibly transferred to [place] however it was delayed until tomorrow. Denies any fever, chills, nausea, vomiting, diarrhea, constipation or any urinary symptoms. Reason For Visit: SEPSIS Physical Exam Vital Signs: Temp Pulse Resp BP Pulse Ox 97.7 F 74 20 173/97 H 93 08/18/19 15:29 08/18/19 15:29 08/18/19 15:29 08/18/19 15:29 08/18/19 15:29 Intake & Output 08/17/19 08/18/19 08/19/19 06:59 06:59 06:59 Intake Total 1740 1524 Output Total 1600 675 Balance 140 849 Weight 148.7 kg 151.7 kg General appearance: PRESENT: no acute distress, morbidly obese, well-developed, well-nourished Head exam: PRESENT: atraumatic, normocephalic Respiratory exam: PRESENT: clear to auscultation thomas. ABSENT: rales, rhonchi, wheezes GI/Abdominal exam: PRESENT: normal bowel sounds, soft. ABSENT: distended, guarding, mass, organolmegaly, rebound, tenderness Neurological exam: PRESENT: alert, awake, oriented to person, oriented to place, oriented to time, oriented to situation, CN II-XII grossly intact, other - Generalized bilateral lower extremity weakness. nonfocal.. ABSENT: motor sensory deficit Results Laboratory Results: 08/18/19 06:22 08/17/19 05:23 08/18/19 06:22 WBC 10.4 RBC 3.57 L Hgb 11.0 L Hct 33.6 L MCV 94 MCH 30.9 MCHC 32.8 RDW 15.3 H Plt Count 213 08/12/19 14:56 Blood Blood Culture - Final NO GROWTH IN 5 DAYS 08/12/19 13:35 Blood Blood Culture - Final NO GROWTH IN 5 DAYS 08/12/19 08/12/19 08/12/19 13:35 13:35 16:58 Creatine Kinase 59 Troponin I 0.257 0.345 08/12/19 08/12/19 08/13/19 20:02 23:12 06:14 Creatine Kinase Troponin I 0.569 1.240 1.450 08/13/19 11:59 Creatine Kinase Troponin I 1.100 Impressions: Chest X-Ray 08/12/19 14:46 IMPRESSION: Borderline heart size without pulmonary edema. Venous Doppler Study 08/12/19 15:39 IMPRESSION: 1. Deep venous thrombosis in the right popliteal vein 2. No DVT in the left leg Assessment and Plan - Diagnosis (1) Acute massive pulmonary embolism Is this a current diagnosis for this admission?: Yes Plan: Initially patient was in ICU, was started on heparin drip and subsequently transitioned to p.o. Eliquis. Acute massive PE finding is based on based on 2D echo finding on 05/2020. Right a thrombus likely PE thrombus in transit with evidence of severe right ventricular dilation and severe right ventricle dysfunction with RV strain.Continue heparin infusion. No CTA on this hospitalization. SPO2 WNL on RA. Pulse WNL. Continue Eliquis. (2) GERD (gastroesophageal reflux disease) Qualifiers: Esophagitis presence: esophagitis presence not specified Qualified Code(s): K21.9 - Gastro-esophageal reflux disease without esophagitis Is this a current diagnosis for this admission?: Yes Plan: Continue Protonix (3) Gout Qualifiers: Gout site: multiple sites Gout etiology: unspecified cause Chronicity: chronic Qualified Code(s): [id number].09X0 - Idiopathic chronic gout, multiple sites, without tophus (tophi) Is this a current diagnosis for this admission?: Yes Plan: Significant improvement on steroids and colchicine. Based on arthrocentesis fluid finding on previous admission patient had monosodium urate crystals in the joint fluid. Was a started on loading dose of colchicine. Currently on colchicine 0.6 mg p.o. twice daily and IV Solu-Medrol. Continue colchicine 0.6 mg p.o. twice daily. Switch IV Solu-Medrol to p.o. prednisone. Patient counseled on decreasing EtOH intake and avoiding high uric acid containing foods. (4) SIRS (systemic inflammatory response syndrome) Is this a current diagnosis for this admission?: Yes Plan: Resolved (5) Morbid obesity Is this a current diagnosis for this admission?: Yes Plan: BMI 41.1. TSH WNL. Likely component of EDGAR and chronic steroid use for underlying gout. Diet and lifestyle modification recommended. Patient may benefit from outpatient nocturnal polysomnography (6) New onset right bundle branch block (RBBB) Is this a current diagnosis for this admission?: Yes Plan: Likely due to right heart strain due to massive PE. Repeat EKG before discharge. Dr. Kodak Jerez cardiology consulted. Recommendations noted. (7) Polyarthritis Is this a current diagnosis for this admission?: Yes Plan: Improving. Likely due to gout arthritis complicated by osteoarthritis. Continue PT. Weight reduction may help and long-term. (8) Shock Is this a current diagnosis for this admission?: Yes Plan: Resolved. Cardiogenic shock, likley due to massive PE with right heart strain and intracardiac thombos. (9) Acute kidney injury Is this a current diagnosis for this admission?: Yes Plan: Resolved. Prerenal. Most likely due to shock. Creatinine improving. Not back to baseline. Electrolytes WNL. Euvolemic. Avoid nephrotoxic meds. BMP tomorrow. (10) Physical deconditioning Is this a current diagnosis for this admission?: Yes Plan: Continue PT OT. Patient discharged to SNF in last admission. Patient would like to be transitioned to home if possible.
[2019-08-18] MEDS ORDERED: LISINOPRIL 5 MG TABLET PO ONE (18:45)
[2019-08-18 19:44] LABS: APPEARANCE,URINE CLEAR; BILIRUBIN,URINE NEGATIVE (NEGATIVE); COLOR,URINE YELLOW; GLUCOSE, URINE NEGATIVE (NEGATIVE); KETONES,URINE NEGATIVE (NEGATIVE); LEUKOCYTE ESTERASE,URINE NEGATIVE (NEGATIVE); NITRITE,URINE NEGATIVE (NEGATIVE); PROTEIN,URINE NEGATIVE (NEGATIVE); URINE SPECIFIC GRAVITY 1.014; UROBILINOGEN,URINE NEGATIVE mg/dL (<2.0)
[2019-08-19] MEDS: INSULIN REG, HUMAN 100 UNIT/ML 3 ML VIAL (PYX) SUBCUT SCH ×2 (00:09→06:13)
[2019-08-19] MEDS: ACETAMINOPHEN 325 MG TABLET PO PRN (04:47)
[2019-08-19 07:52] VITALS: BP 129/86
[2019-08-19] MEDS: APIXABAN 5 MG TABLET PO SCH (09:18)
[2019-08-19] MEDS: DOCUSATE SODIUM 100 MG CAPSULE PO SCH (09:18)
[2019-08-19] MEDS: COLCHICINE 0.6 MG TABLET PO SCH (09:18)
[2019-08-19] MEDS: PREDNISONE 20 MG TABLET PO SCH (09:18)
[2019-08-19] MEDS: PANTOPRAZOLE SODIUM 40 MG VIAL IV SCH (09:18)
[2019-08-19] MEDS ORDERED: LISINOPRIL 5 MG TABLET PO SCH (10:00)
[2019-08-23] MEDS ORDERED: APIXABAN 5 MG TABLET PO SCH (10:00)
== END 2019-08-19 13:00 | DRG 175 ==
LOC: ER 13:28 → EH 16:26 → ICU 17:50 → 4W 08-15 14:38
PROVIDERS: ADMIT Internal Medicine; ATTEND Internal Medicine
DX: I26.99 Other pulmonary embolism without acute cor pulmonale (principal); R57.0 Cardiogenic shock; N17.9 Acute kidney failure, unspecified; R65.10 Systemic inflammatory response syndrome (SIRS) of non-infectious origin without acute organ dysfunction; E87.2 Acidosis; Z68.41 Body mass index [BMI] 40.0-44.9, adult; E86.0 Dehydration; K21.9 Gastro-esophageal reflux disease without esophagitis; M10.9 Gout, unspecified; E66.01 Morbid (severe) obesity due to excess calories; I45.10 Unspecified right bundle-branch block; M13.0 Polyarthritis, unspecified; Z79.01 Long term (current) use of anticoagulants; Z88.6 Allergy status to analgesic agent; Z87.891 Personal history of nicotine dependence; R79.89 Other specified abnormal findings of blood chemistry; I10 Essential (primary) hypertension; Z82.61 Family history of arthritis; R31.29 Other microscopic hematuria
CPT/HCPCS: 36415; 36600; 51702; 71045; 80048; 80053; 80202; 81001; 82533; 82550; 82565; 82803; 82962; 83605; 83690; 83735; 84484; 85025; 85027; 85379; 85610; 85730; 87040; 87070; 93005; 93010; 93306; 93970; 96361; 96365; 96375; 99291; C9113; J0360; J1644; J1650; J1815; J1956; J2543; J2920; J2930; J3370; J3490; J7050; J7060; J7120; J7121; J7512